=== PATIENT | female | born 1955 | race African-American/Black ===

== ENCOUNTER → 2023-12-21 11:27 | Outpatient (REF) | payer MEDICARE, BC, SELFPAY | LOC: HWRAD 11:27 | PROVIDERS: ATTENDING PHYSICIAN Physician Assistant | DX: M79.642 Pain in left hand (principal) | CPT/HCPCS: 73130; 73502 ==

== ENCOUNTER → 2023-12-22 17:10 | Day surgery (SDC) | payer MEDICARE, BC, SELFPAY ==
[2023-12-22] VITALS (10 sets, daily range): BP systolic 132–200; BP diastolic 54–166; BMI 25.0
--- NOTE | 2023-12-22 12:09 | ED.GENMED ---
History of Present Illness
<Ben Shepard PA-C - Last Filed: 12/22/23 15:27>
General
Chief Complaint: Catheter/Tube Problem
Time Seen by Provider: 12/22/23 11:08
Travel History
Have you had any contact with someone who has COVID-19?: No
Do you have any symptoms of coronavirus? Fever > 100 degrees, chills, cough, shortness of breath, sore throat, loss of taste or smell, muscle aches, or headache?: No
History of Present Illness
History of Present Illness:
68-year-old female with history of end-stage renal disease on dialysis presents due to a nonfunctioning right upper extremity dialysis fistula. Her fistula was accessed without complication on Monday. Notes after dialysis Monday her arm
became swollen and painful. There is no palpable thrill. Dialysis was unable to access her today and thus sent her to the emergency department. She denies any chest pain, fevers, or chills. Does have numbness to the right palm.
Past History
<Ben Shepard PA-C - Last Filed: 12/22/23 15:27>
Past History
ED Past Medical History: HTN, Hypercholesterolemia, Renal failure (Polycystic kidney disease) and Other
ED Past Surgical History: Cholecystectomy and Other (Renal artery stent, left arm AV fistula removed, dialysis catheter right chest wall)
Social History
Tobacco: Smoker (smokers 10 sticks per day)
Alcohol: None
Drug: None
Personal: Single
Living: with family
Employment: Retired
Family History
Family History: Other (Coronary artery disease, hypertension, brother with pacemaker, PCKD)
Review of Systems
<Ben Shepard PA-C - Last Filed: 12/22/23 15:27>
Review of Systems
Allergies reviewed?: Yes
All Other Systems: ROS reviewed and negative except as documented in HPI and ROS
Phy Exam
<Ben Shepard PA-C - Last Filed: 12/22/23 15:27>
Physical Exam
Physical Exam:
GEN: Well appearing, NAD, WDWN
HEENT: Oral mucosa moist, no scleral icterus
Cardiac: Regular rate
Lung: No respiratory distress, no tachypnea
MSK: Right upper extremity with 2 fistulas, the proximal fistula is old and there is no palpable thrill. The distal fistula appears edematous with no palpable thrill and no audible bruit. Right radial pulses 2+
Skin: Good color, no pallor or jaundice, no rashes
Neuro: AO x3, moves all extremities freely
Psych: Calm, cooperative
Course
<Ben Shepard PA-C - Last Filed: 12/22/23 15:27>
Orders/Labs/Results
Orders:
Orders
12/22/23 11:14
US Hemodialysis Graft Urgent
Comment:
Reason For Exam: possible obstructed fistula
12/22/23 13:06
Complete Blood Count/With Diff Urgent
Comprehensive Metabolic Panel Urgent
Prothrombin Time Urgent
Vital Signs
Initial and Last Documented VS:
Initial Vital Signs
Temp Pulse Resp BP Pulse Ox
98.3 F 61 16 132/57 98
12/22/23 10:00 12/22/23 10:00 12/22/23 10:00 12/22/23 10:00 12/22/23 10:00
Last Documented Vital Signs
Temp Pulse Resp BP Pulse Ox
98.3 F 61 16 161/64 100
12/22/23 10:00 12/22/23 10:00 12/22/23 10:00 12/22/23 11:02 12/22/23 11:15
<Abdirahman Dominguez DO - Last Filed: 12/22/23 15:06>
Orders/Labs/Results
Orders:
Orders
12/22/23 11:14
US Hemodialysis Graft Urgent
Comment:
Reason For Exam: possible obstructed fistula
12/22/23 13:06
Complete Blood Count/With Diff Urgent
Comprehensive Metabolic Panel Urgent
Prothrombin Time Urgent
Vital Signs
Initial and Last Documented VS:
Initial Vital Signs
Temp Pulse Resp BP Pulse Ox
98.3 F 61 16 132/57 98
12/22/23 10:00 12/22/23 10:00 12/22/23 10:00 12/22/23 10:00 12/22/23 10:00
Last Documented Vital Signs
Temp Pulse Resp BP Pulse Ox
98.3 F 61 16 161/64 100
12/22/23 10:00 12/22/23 10:00 12/22/23 10:00 12/22/23 11:02 12/22/23 11:15
Procedures
<Ben Shepard PA-C - Last Filed: 12/22/23 15:27>
Central Line
Right Femoral:
Indication for procedure:: Lack of peripheral venous access
Procedure completed by: Ben Shepard PA-C
Consent form signed: No
If no, reason: Emergency procedure (Verbal consent given)
Anesthesia: 1% Lidocaine
Central line lumen: triple
Number of attempts: 1
Central line complications: none
Sterile dressing applied?: Yes
<Ben Shepard PA-C - Last Filed: 12/22/23 15:27>
MDM/Problems Addressed
MDM/Problems Addressed:
68-year-old female presents due to a clotted dialysis AV fistula. There is a substantial delay in care as vascular surgery was not available to discuss the patient immediately, they did ask me to reach out to interventional radiology for assistance
however interventional radiology is not available to manage this patient currently. We were unable to obtain peripheral vascular access for quite some time and ultimately a right femoral line was placed by myself in order to facilitate labs and
ultimately procedure. Will be admitted to the hospitalist service post vascular procedure she will ultimately need dialysis
<Ben Shepard PA-C - Last Filed: 12/22/23 15:27>
*Critical Care Note
Total Time (30-74mins, 75-104mins- exclusive of procedures): Not Applicable
ED Attending Note
<Ben Shepard PA-C - Last Filed: 12/22/23 15:27>
-
Portions of this chart may have been created with voice recognition software.� Occasional wrong word or��sound alike� substitutions may have occurred due to the inherent limitations of voice recognition software.
<Abdirahman Dominguez DO - Last Filed: 12/22/23 15:06>
ED Attending Note
Patient seen and examined by attending physician: Yes
I performed the substantive portion of visit, reviewed & personally made and approve the management plan that is documented in note by myself or JOCELYN.: Yes
Discharge Plan
Departure
Patient Disposition: Admit
Date of Disposition: 12/22/23
Time of Disposition: 15:06
Presentation/result/management discussed w/ accepting MD/: Hospitalist
Discharge Problem:
Clotted renal dialysis AV graft
Prescriptions:
No Action
clonidine HCl 0.2 MG tablet
0.2 mg PO BID
aspirin 325 MG tablet,delayed release (DR/EC)
325 mg PO DAILY
Lokelma 10 gram Powder In Packet
10 g PO QPM
carvedilol 25 mg Tablet
25 mg PO BID
valsartan 320 mg Tablet
320 mg PO HS
sucralfate 1 gram tablet
1 g PO BID
atorvastatin 10 mg tablet
10 mg PO HS
ProRenal 8 mg iron-800 mcg-1,000 unit tablet
1 tab PO DAILY
pantoprazole [Protonix] 40 mg tablet,delayed release (DR/EC)
40 mg PO DAILY Qty: 30 0RF
hydralazine 50 mg Tablet
50 mg PO TID
Patient Comments:
08/08/23 patient was taking hydralazine 25mg but Dr. Le increased dose to 50mg on 08/02/23.
calcitriol 0.25 mcg Capsule
0.5 mcg PO MOWEFR
oxycodone 5 mg Tablet
5 mg PO Q4HPRN PRN (Reason: pain)
cinacalcet [Sensipar] 60 mg Tablet
60 mg PO MOWEFR
sevelamer carbonate [Renvela] 800 mg Tablet
1,600 mg PO AC
polyethylene glycol 3350 [Miralax] 17 gram/dose Powder
4 g PO DAILY
Referrals:
Genesis Jean Baptiste PA-C [Family Provider] -
Interventions
Interventions:
*Risk Screen - Suicide Last Done: 12/22/23 10:00
*General Assessment Last Done: 12/22/23 10:00
*Neglect/Abuse Screening Last Done: 12/22/23 10:00
ED- Fall Risk Assessment Last Done: 12/22/23 11:03
NC-[id number]-[id number] Assessment Last Done: 12/22/23 11:05
ED-Female Genitourinary Assessment Last Done: 12/22/23 11:05
--- NOTE | 2023-12-22 15:13 | CON.VAS ---
Addendum entered and electronically signed by Chris Hwang III, MD 12/22/23 16:52:
This patient was seen and examined with GAEL Oscar. I agree with the history and physical exam as well as the assessment and plan. I have the following additions:
Occluded right arm AV graft diagnosed at dialysis this morning.
Did not receive dialysis session
Duplex reviewed, graft occluded
Planning for declot today
Discussed with nephrology
Technical aspects of this procedure were discussed with the patient in detail. The benefits and rationale for this approach were discussed with her in detail. Operative risks were discussed with her in detail including but not limited to bleeding,
infection, distal embolization, arm ischemia, rethrombosis of the graft and need for additional surgery.
She expressed a clear understanding of our conversation and agrees to proceed with surgery as detailed above.
Signed:
Chris Hwang III, MD
[facility]
[phone] ([phone])
Original Note:
Consultation
Consultation Request
Date/Time Consultation Performed: 12/22/23 1530
Requesting Provider: Ben Shepard PA-C
Performing Provider: ANDRES Travis for Chris Hwang III, MD
Reason for Consultation: Suspected RUE AV clot
Medical History
-
Chief Complaint: Nonfunctioning right upper extremity AV graft
History of Present Illness:
This is a 67 yo female patient well known to our service with significant past medical history of CAD, ESRD on HD, tobacco abuse, hypertension, nausea, TIA, hyperlipidemia, AAA, and cholelithiasis who presents to the ER today for nonfunctioning AV
graft. Patient endorses that HD was unable to be initiated today due to staff suspecting clot, and was encouraged to seek urgent ED evaluation for suspected AV graft clot. Patient offers no complaints and denies right extremity pain or decreased
motor/sensation function. Denies nausea, vomiting, fever, and chills. She does report successful HD session on Monday.
Vascular surgical history below:
02/15/18- Exploration of LUE veins, LUE ulnar artery to brachial vein AV graft creation
07/16/19- LUE fistulogram, central venogram, balloon angioplasty/stenting of outflow venous anastomotic stenosis, post angioplasty of stent
06/17/21- Excision of LUE AV graft pseudoaneurysms with interposition new graft placement tunneled in a separate plane with Lincoln Acuseal early access 7mm graft
10/18/21- repair of L ulnar artery AV graft anastomotic pseudoaneurysm with bovine pericardial patch, excision of potentially infected AV graft, ligation of brachial vein, placement of R IJ tunneled dialysis catheter- infected pseudoaneurysm
12/16/21- RUE basilic vein AVF creation with single stage basilic vein transposition.
06/16/22- RUE arteriovenous graft creation with 7 mm x 4 mm tapered Lincoln Acuseal early access graft.
10/27/22- RUE fistulogram, central venogram, balloon angioplasty of venous anastomotic stenosis
05/15/23- Emergent operative exploration and evacuation of right upper extremity hematoma; Emergent primary repair of right upper extremity arterial pseudoaneurysm
08/08/23- Diagnostic right upper extremity fistulogram, drug-coated balloon angioplasty of high-grade venous anastomotic stenosis, central venogram, ultrasound-guided percutaneous access to the right upper extremity AV graft
09/21/23- Right upper extremity fistulogram and central venogram, balloon angioplasty/stent placement of venous anastomotic stenosis with Lincoln Viabahn 8 mm x 5 cm covered stent.
Past Medical History
Past Medical History: CAD, Renal Failure (MWF) and Other (Ischemic cardiomyopathy EF ~55% in 06/2022, anemia of CKD, Secondary hyperparathyroidism)
Past Surgical History: Other (AV Fistula, Renal Artery Stent, Cardiac Stent, Cholecystectomy)
Social History
Tobacco: Smoker
Alcohol: None
Drug: None
Personal: Single
Living: With Family
Allergies / Home Medications
Allergy/AdvReac Type Severity Reaction Status Date / Time
cefazolin [From [facility]] Allergy Itching Verified 12/22/23 09:59
Medication Instructions Recorded Confirmed Type
clonidine HCl 0.2 mg tablet 0.2 mg PO BID Blood Pressure 06/14/21 09/26/23 History
aspirin 325 mg tablet,delayed 325 mg PO DAILY Blood Clot 03/14/22 09/26/23 History
release Prevention/Tx
sodium zirconium cyclosilicate 10 10 g PO QPM high potassium 06/13/22 09/26/23 History
gram oral powder packet (Lokelma)
carvedilol 25 mg tablet 25 mg PO BID Heart 10/21/22 09/26/23 History
Disease/Condition
valsartan 320 mg tablet 320 mg PO HS Blood pressure 10/21/22 09/26/23 History
sucralfate 1 gram tablet 1 g PO BID Gastrointestinal Issue 01/30/23 09/26/23 History
atorvastatin 10 mg tablet 10 mg PO HS High Cholesterol 05/15/23 09/26/23 History
vit B complx, C-iron 8 mg-folic 1 tab PO DAILY Supplement 05/15/23 09/26/23 History
acid 800 mcg-D3 1,000 unit-zinc
tablet (ProRenal)
pantoprazole 40 mg tablet,delayed 40 mg PO DAILY #30 tabs 07/05/23 09/26/23 Rx
release (Protonix)
hydralazine 50 mg tablet 50 mg PO TID Blood Pressure 08/08/23 09/26/23 History
calcitriol 0.25 mcg capsule 0.5 mcg PO MOWEFR 09/18/23 09/26/23 History
cinacalcet 60 mg tablet (Sensipar) 60 mg PO MOWEFR 09/18/23 09/26/23 History
oxycodone 5 mg tablet 5 mg PO Q4HPRN PRN pain 09/18/23 09/26/23 History
sevelamer carbonate 800 mg tablet 1,600 mg PO AC 09/18/23 09/26/23 History
(Renvela)
polyethylene glycol 3350 17 4 g PO DAILY 09/21/23 09/26/23 History
gram/dose oral powder (Miralax)
Review of Systems
-
History Source: Patient
Constitutional: Reports No Symptoms
EENT: Reports No Symptoms
Respiratory: Reports No Symptoms
Cardiac: Reports No Symptoms
Abdomen/GI: Reports No Symptoms
: Reports No Symptoms
Musculoskeletal: Reports No Symptoms
Skin: Reports Other (Right upper extremity AV graft nonfunctioning)
Neurological: Reports No Symptoms
Physical Exam
Vital Signs
Temp Pulse Resp BP Pulse Ox
98.3 F 61 16 161/64 100
12/22/23 10:00 12/22/23 10:00 12/22/23 10:00 12/22/23 11:02 12/22/23 11:15
Physical Exam
HEENT: Normocephalic, Anicteric and Atraumatic
Respiratory: Non Labored Respirations
Cardiac: Negative JVD
GI: Soft, Non Tender and Non Distended
Musculoskeletal: No Edema and Other (Right upper extremity AV graft without thrill, right radial pulse palpable +1)
Skin: Dry
Neuro: AO x 3
Assessment / Plan
-
Assessment: 68-year-old female patient on dialysis for end-stage renal disease suspect clot at right extremity AV graft
Plan:
- OR today for fistulagram/declot possible AngioJet
-Hospitalist to admit
-Nephrology for HD management, will attempt use of fistula while inpt after fistulagram
I performed this shared service with the attending. I evaluated the patient [id number] and have entered clinical documentation as shown in the encounter note. I performed the following component(s): history and physical exam. Note that medical
decision making is not final until attested by vascular attending.
[2023-12-22 15:23] LABS: % Basophils 0.3 % (0-2); % Eosinophils 3.7 % (0-6); % Immature Granulocytes 0.4 % (0-0.5); % Lymphocytes 22.4 % (20.5-51.1); % Neutrophils 63.2 % (42.2-75.2); Absolute Eosinophils 0.3 10^3/uL (0-0.7); Absolute Lymphocytes 1.7 10^3/uL (1.2-3.4); Absolute Monocytes 0.8 10^3/uL (0.1-0.6); Absolute Neutrophils 4.8 10^3/uL (1.4-6.5); Hematocrit 26.8 % (37.0-47.0); Hemoglobin 8.7 g/dL (12.0-16.0); Mean Corp Hgb Conc. 32.5 g/dL (33.0-37.0); Mean Corpuscular Hgb 31.2 pg (27.0-31.0); Mean Corpuscular Volume 96.1 fL (81.0-99.0); Mean Platelet Volume 9.4 fL (7.4-10.4); Nucleated Red Blood Cells % 0 %; Platelet Count 208 10^3/uL (130-400); Red Blood Cell Count 2.79 10^6/uL (4.20-5.40); Red Cell Dist. Width 17.6 % (11.5-14.5); White Blood Cell Count 7.6 10^3/uL (4.8-10.8)
[2023-12-22 15:40] LABS: INR 1.16; PT 14.8 Sec (11.4-14.6)
[2023-12-22 15:44] LABS: ALT (SGPT) 12 U/L (0-35); AST (SGOT) 19 U/L (14-36); Albumin 2.8 g/dl (3.5-5.0); Alkaline Phosphatase 73 U/L (38-126); Blood Urea Nitrogen 70 mg/dl (7-17); Calcium 9.2 mg/dl (8.4-10.2); Carbon Dioxide 34 mmol/L (22-30); Chloride 90 mmol/L (98-107); Estimated Creatinine Clearance 6 ml/min; Glucose 83 mg/dl (70-99); Potassium 4.7 mmol/L (3.5-5.1); Sodium 135 mmol/L (135-145); Total Bilirubin 1.1 mg/dl (0.2-1.3); eGFR 4.85
--- NOTE | 2023-12-22 16:56 | W.SUR.PREOP ---
Pre-Operative Surgical Note
-
I have examined this patient prior to the performance of the scheduled procedure.
The patient's condition is unchanged from the time of the current History and
Physical and the patient is able to undergo the scheduled procedure.
--- NOTE | 2023-12-22 19:03 | W.IMMPOSTOP ---
Surgical Immed Post Op Note
-
Primary Surgeon: Chris Hwang III, MD
Assisting Surgeon: Caio Schwartz MD
Pre-op Diagnosis: RUE AV fistula dysfunction
Post-op Diagnosis: As above
Procedure Performed: RUE AV Fistula Clot Removal
Anesthesia Type: Light Sedation
Specimen / Cultures: NA
Estimated Blood Loss: 3cc
Complications: None
Operative Findings:
Access obtained through two sites via graft to access arterial and venous aspects of fistula. RUE AV fistulogram performed demonstrating focal stenosis immediately distal to prior stent. TPA was administered and mechanical thrombectomy and balloon
angioplasty performed. Postoperatively, fistula was noted to be patent, with strong appreciable thrill. Access sites were closed with 2 4-0 monocryl [id number] sutures. Right radial pulse intact postoperatively.
--- NOTE | 2023-12-22 19:28 | OR.RPT ---
Operative Report
Operative Report
Date of Operation: 12/22/2023
Pre Op Diagnosis: Thrombosed right upper extremity AV graft
Post Op Diagnosis: Thrombosed right upper extremity AV graft
Procedure:
1.) Percutaneous declot of right upper extremity AV graft
2.) Diagnostic fistulogram
3.) Central venogram
4.) Drug-coated balloon angioplasty of venous outflow stenosis (8 mm x 40 mm iNPACT DCB)
5.) Ultrasound-guided percutaneous access to the right upper extremity AV graft
Surgeon: Chris Hwang III, MD
Early Childhood Educator Aide: Caio Schwartz MD PGY-1
Anesthesia: Sedation/local
Complications: None
Fluoroscopy:
20.4 minutes
18.7 mGy
2.51 DAP
History and Indications for Procedure: 68-year-old female with thrombosed right upper extremity AV graft
Procedure in Detail: Niurka Vernon was correctly identified and placed supine on the operating table. After adequate induction of anesthesia the right arm was positioned, prepped and draped in the usual sterile fashion. Preoperative antibiotics were
administered. A timeout procedure was performed with the nursing and anesthesia staff confirming the patient�s identity as well as the nature and laterality of the procedure.
Intraoperative ultrasound was performed on the AV access. This was a right upper arm AV graft. Ultrasound demonstrated a thrombosed graft.
I identified 2 potential puncture sites along the length of the graft. Local anesthesia was infiltrated into the skin overlying the proposed puncture sites. I obtained access to the AV graft under ultrasound guidance in two separate locations with
a micropuncture needle. One access site was facing towards the arterial anastomosis. The other access site facing towards the venous outflow. I then upsized to a 6 [place] sheath at both puncture sites. 4 mg of tPA was injected into each sheath.
Systemic heparin was administered. Using a Glidewire and a KMP catheter I navigated across the proximal portion of the graft, through the arterial anastomosis and into the distal brachial artery. An arteriogram at this location confirmed no flow
into the graft. I exchanged out for a V18 wire. An [id number] Macy balloon was then passed over the V18 wire. Several sweeps of the Macy balloon were used to thrombectomize the arterial side of the graft. Subsequent arteriogram
demonstrated patent proximal portion of the graft with continued thrombus and outflow obstruction on the venous side.
Using a Glidewire and KMP catheter I then navigated through the graft across the venous outflow. The catheter was positioned in the axillary vein. A central venogram was performed demonstrating a patent axillary and subclavian vein with no
stenosis identified. There appeared to be an occlusion of the innominate vein with no clear visualization of the superior vena cava. This was also seen on the prior fistulogram from August 2023. I exchanged out for a Storq wire. Over the Storq
wire I advanced a 6 mm x 40 mm angioplasty balloon. I performed balloon angioplasty along the entire length of the AV graft and venous outflow through the existing stent. Balloon maceration of thrombus was performed along the length of the graft
and venous outflow through the stent. Subsequent fistulogram demonstrated patency of the AV graft with residual thrombus and a venous outflow stenosis identified. I then positioned an 8 mm x 40 mm iNPACT drug-coated balloon in the venous outflow
just distal to the existing stent. The balloon was inflated to nominal pressure, held in place for 3 minutes and then deflated and removed over the wire.
Completion fistulogram demonstrated a patent AV graft. Brisk flow. Minimal focal residual wall adherent thrombus identified in the venous outflow immediately distal to the stent. There was brisk flow through this area.
At the conclusion of the procedure Monocryl sutures were placed around the sheath puncture sites. The sheaths were removed and the sutures secured. Hemostasis was achieved. Sterile dressings were applied.
The patient tolerated the procedure well and was taken to the PACU in stable condition. She had a excellent thrill in the right upper extremity AV graft at the conclusion of the case. She had a palpable radial pulse at the wrist.
Attestation: I was present and responsible for the entire procedure
Signed:
Chris Hwang III, MD
[facility]
[phone] ([phone])
--- NOTE | 2023-12-22 19:46 | PTCARENOTE ---
Dr Hwang d/c'd triple lumen catheter from rt groin. pressure applied, dressing dry intact
== END | disposition home or self-care (01) ==
LOC: EMR 09:33 → PACUI 17:10
PROVIDERS: Physician Assistant; ATTENDING PHYSICIAN Surgery Vascular Surgery; EMERGENCY PHYSICIAN Emergency Medicine; FAMILY PHYSICIAN Physician Assistant Medical
DX: T82.868A Thrombosis due to vascular prosthetic devices, implants and grafts, initial encounter (principal); Y83.2 Surgical operation with anastomosis, bypass or graft as the cause of abnormal reaction of the patient, or of later complication, without mention of misadventure at the time of the procedure; N18.6 End stage renal disease; N25.81 Secondary hyperparathyroidism of renal origin; I12.0 Hypertensive chronic kidney disease with stage 5 chronic kidney disease or end stage renal disease; D63.1 Anemia in chronic kidney disease; Z99.2 Dependence on renal dialysis
CPT/HCPCS: 36905; 36556; 76937; 80053; 85025; 85610; 93990; 99285; C1725; C1769; C1894; J2997; Q9967

== ENCOUNTER 2024-01-01 07:20 | Inpatient (IN) | payer MEDICARE, BC, SELFPAY ==
[2023-12-27 11:02] VITALS: BP 100/72
--- NOTE | 2023-12-27 12:49 | ED.GENMED ---
History of Present Illness
General
Chief Complaint: Weakness
Source: patient and records
Exam Limitations: none
Time Seen by Provider: 12/27/23 12:37
Nursing documentation reviewed up to this point in time: agreed with
Travel History
Have you had any contact with someone who has COVID-19?: No
Do you have any symptoms of coronavirus? Fever > 100 degrees, chills, cough, shortness of breath, sore throat, loss of taste or smell, muscle aches, or headache?: No
History of Present Illness
History of Present Illness:
68 year old female with PMH as documented notable for ESRD on dialysis who presents to the ED for evaluation of weakness and frequent falls. Patient was notably here last week for clotted dialysis fistula that was de-clotted by Dr. Hwang on 12/22/23;
fistula has been functioning since then. Last dialysis session was reportedly yesterday--she is normally on M// schedule but has been off-schedule since recent hospitalization. She presents today with generalized weakness since staying in
hospital. She says that she has very little strength in her legs and has unfortunately suffered multiple minor falls since discharge. Normally does not require assistance to walk, recently has been using walker and even with this support she has had
multiple falls. She says falls have been down to her knees--has not had any head trauma or serious injuries recently she says. She did have a fall about a month ago prior to recent hospitalization and has had some low back pain since then. She
denies any headache, neck pain, pain in her extremities. Aside from feeling very weak she reports that she has had some nausea and vomiting over the past few days--two episodes on Monday, one more on Monday. She denies any vomiting over the past
48 hours. She has had poor appetite and some mild associated abdominal discomfort. No diarrhea or constipation. Denies fever or chills. She is anuric. Denies chest pain or shortness of breath. No cough/congestion/sore throat. Denies any other
complaints. Review of medication list shows full dose aspirin but no other blood thinners.
Past History
Past History
ED Past Medical History: HTN, Hypercholesterolemia, Renal failure (Polycystic kidney disease) and Other
ED Past Surgical History: Cholecystectomy and Other (Renal artery stent, left arm AV fistula removed, dialysis catheter right chest wall)
Social History
Tobacco: Smoker (smokers 10 sticks per day)
Alcohol: None
Drug: None
Personal: Single
Living: with family
Employment: Retired
Family History
Family History: Other (Coronary artery disease, hypertension, brother with pacemaker, PCKD)
Review of Systems
Review of Systems
All Other Systems: ROS reviewed and negative except as documented in HPI and ROS
Constitutional: Reports fatigue; Denies fever or chills
EENT: Denies sore throat or runny nose
Respiratory: Denies cough or trouble breathing
Cardiac: Denies chest pain, palpitations or syncope
ABD/GI: Reports abdominal pain, nausea and vomiting; Denies diarrhea or constipated
: Denies flank pain
Musculoskeletal: Reports back pain; Denies neck pain
Neurological: Reports weakness (generalized); Denies dizzy, headache or numbness
Phy Exam
Physical Exam
Physical Exam:
General: Awake, alert, oriented x3; no acute distress
Head: Normocephalic, atraumatic
Eyes: Conjunctiva normal, pupils equal round reactive to light bilaterally
Throat: Airway intact, handling secretions
Neck: Trachea midline, supple without meningismus; no cervical spine tenderness
Lungs: Clear to auscultation bilaterally, no wheezing, rales, rhonchi
Heart: Regular rate and rhythm, systolic murmur
Abd: Soft, non distended, mildly tender across lower abdomen
Back: No signs of trauma to the back or flank she does have some tenderness of the paraspinal muscles in the lumbar region
Neuro: Cranial nerves grossly intact, speech fluid; generally weak but no focal weakness strength is symmetric proximally and distally upper and lower extremities and no objective sensory deficit
Skin: no rash
Extremities: Patient has right upper extremity fistula with palpable thrill; no edema in her lower extremities pulses all extremities
Scores
Heart Failure Risk
Heart Failure Risk Score: Not Applicable
Heart Score for Chest Pain Patients
STEMI patient?: Not applicable
Withdrawal Assessment of Alcohol
Withdrawal Assessment Completed?: Not applicable
Course
Orders/Labs/Results
Orders:
Orders
12/27/23 12:39
Electrocardiogram (*1) Urgent
Reason for Study: Fatigue / Weakness
EKG- Treatment ONCE
12/27/23 12:48
CT Abd/pel (oral only)-DH Only Urgent
Comment:
Reason For Exam: abd pain, N/V, lower abd TTP; also LBP s/p fall
Iohexol [Omnipaque] See Protocol PO NOW STA
CR Chest - 2 Views Urgent
Comment:
Reason For Exam: weakness
12/27/23 13:33
COVID-19 Antigen Urgent
Source: Nasal Swab
Complete Blood Count/With Diff Urgent
Influenza A+B Rapid Molecular Urgent
ANUJ Source: Nasal Swab
Specimen Description:
12/27/23 15:05
Comprehensive Metabolic Panel Urgent
12/27/23 15:28
CT Head W/o Iv Contrast Urgent
Comment:
Reason For Exam: fall, N/V
Abnormal Lab Results
12/27/23 12/27/23
13:33 15:05
RBC 2.88 L 10^6/uL
(4.20-5.40)
Hgb 8.9 L g/dL
(12.0-16.0)
Hct 27.6 L %
(37.0-47.0)
MCHC 32.2 L g/dL
(33.0-37.0)
RDW 16.8 H %
(11.5-14.5)
Absolute Monos (auto) 0.9 H 10^3/uL
(0.1-0.6)
Lymphocytes % 17.1 L %
(20.5-51.1)
Monocytes % 13.0 H %
(1.7-9.3)
Sodium 132 L mmol/L
(135-145)
Chloride 93 L mmol/L
(98-107)
Carbon Dioxide 32 H mmol/L
(22-30)
BUN 36 H mg/dl
(7-17)
Creatinine 6.3 H* mg/dL
(0.6-1.0)
Glucose 68 L mg/dl
(70-99)
Total Protein 6.2 L g/dl
(6.3-8.2)
Albumin 3.1 L g/dl
(3.5-5.0)
12/27/23 13:33
12/27/23 15:05
Vital Signs
Initial and Last Documented VS:
Initial Vital Signs
Temp Pulse Resp BP Pulse Ox
37.2 C 84 16 100/72 98
12/27/23 11:02 12/27/23 11:02 12/27/23 11:02 12/27/23 11:02 12/27/23 11:02
Last Documented Vital Signs
Temp Pulse Resp BP Pulse Ox
37.2 C 84 16 100/72 96
12/27/23 11:02 12/27/23 11:02 12/27/23 11:02 12/27/23 11:02 12/27/23 15:55
Procedures
IV Access
Indication: Emergent access required, RN unable to obtain and Physician skill needed
Performed by:: Sunday Cruz MD
Site:: R
Gauge:: 18G
Ultrasound Guidance: No
MDM/Problems Addressed
Differential Diagnosis Includes:
anemia, electrolyte derangement, dehydration, viral syndrome, dysrhythmia, pneumonia, intra-abdominal infection
MDM/Problems Addressed:
68 year old female presents with increasing generalized weakness and multiple falls since recent hospitalization for clotted AV fistula. No serious injuries she says although she does have low back pain preceding these recent falls. Denies head
trauma. She has had some abdominal discomfort and nausea/vomiting recently which seems to be generally improving--no vomiting x48 hours. Vital signs are within normal range. Exam as above. Plan to place IV check labs including CBC, CMP. Will check
viral swabs, chest x-ray. Will check an EKG. Will send for CT head in an abundance of caution given multiple recent falls and nausea/vomiting. Will send for CT abdomen and pelvis for further evaluation both of abdominal discomfort and vomiting but
also low back pain. Will monitor closely, reassess after the above.
CT head negative for any acute pathology. CT of the abdomen pelvis shows compression fracture L3 which is likely new�suspect that this is likely the cause of her back pain she did have a fall about a month ago prior to onset. No other acute
pathology in the abdomen pelvis. Chest x-ray shows questionable pneumonia on the left side certainly this would account for weakness but she has no cough or shortness of breath which goes against the diagnosis of pneumonia; given her weakness will
cover for antibiotics for now. Her labs show chronic anemia and stably abnormal renal function in keeping with her ESRD. She has not hypoglycemia was able to take p.o. here. At this point no clear emergent pathology there was questionable
pneumonia which we will treat. I wonder if perhaps she may have some hypovolemia as a cause for her weakness or this could be deconditioning with her recent hospitalization. I am concerned about discharge directly home given her multiple recent
falls. Will plan to have physical therapy evaluate and case management assess for potential placement in rehab. Will admit for observation overnight and ultimately safe placement. Discussed with hospitalist for admission.
Chronic conditions affecting care:
ESRD on dialysis
*Radiology
Radiology exam reviewed: radiology read reviewed
*Pulse Oximetry
Patient hypoxic: no
*EKG
Interpreted by ED Provider?: Yes
Heart Rate: 74
Rate: normal
Rhythm: sinus
Harrold: normal axis
Interval: normal interval
QRS Pattern: low voltage
Ischemia: no ischemia
*Critical Care Note
Total Time (30-74mins, 75-104mins- exclusive of procedures): Not Applicable
Data Reviewed
Review of Other/Old Records Reveals: Labs, Operative Reports and Discharge Summary
Source: patient and records
Patient Management
Discussion with other providers: Hospitalist (Discussed with hospitalist)
Escalation/DeEscalation of care consider admission/obs:
Admission indicated
ED Attending Note
-
Portions of this chart may have been created with voice recognition software.� Occasional wrong word or��sound alike� substitutions may have occurred due to the inherent limitations of voice recognition software.
Discharge Plan
Departure
Patient Disposition: Admit
Date of Disposition: 12/27/23
Time of Disposition: 16:37
Admit to doctor: Herson
Presentation/result/management discussed w/ accepting MD/DO: Hospitalist
Discharge Problem:
Weakness, Frequent falls, Pneumonia
Prescriptions:
No Action
aspirin 325 MG tablet,delayed release (DR/EC)
325 mg PO DAILY
Lokelma 10 gram Powder In Packet
10 g PO QPM
carvedilol 25 mg Tablet
25 mg PO BID
valsartan 320 mg Tablet
320 mg PO HS
sucralfate 1 gram tablet
1 g PO BID
atorvastatin 10 mg tablet
10 mg PO HS
ProRenal 8 mg iron-800 mcg-1,000 unit tablet
1 tab PO DAILY
pantoprazole [Protonix] 40 mg tablet,delayed release (DR/EC)
40 mg PO DAILY Qty: 30 0RF
cinacalcet [Sensipar] 60 mg Tablet
60 mg PO MOWEFR@0800
sevelamer carbonate [Renvela] 800 mg Tablet
1,600 mg PO AC
polyethylene glycol 3350 [Miralax] 17 gram/dose Powder
17 g PO DAILY
lidocaine 4 % Adhesive Patch,Medicated
2 patch TOPICAL DAILY PRN (Reason: apply to left hip/thigh and left lower back)
Patient Comments:
12/22/2023, pt. currently wearing half of a patch on their left thigh and half of a patch on their left lower back; pt. also wearing a full patch on their left hip.
hydralazine 25 mg Tablet
25 mg PO BID
calcitriol 0.5 mcg Capsule
0.5 mcg PO MOWEFR@0800
oxycodone 5 mg Tablet
5 mg PO Q4HPRN PRN (Reason: severe pain)
Referrals:
Genesis Jean Baptiste PA-C [Family Provider] -
Interventions
Interventions:
*Risk Screen - Suicide Last Done: 12/27/23 13:47
*General Assessment Last Done: 12/27/23 13:45
*Neglect/Abuse Screening Last Done: 12/27/23 13:45
*ED COVID-19 Vaccine History Last Done: 12/27/23 11:02
ED- Cardiac Assessment Last Done: 12/27/23 13:53
ED- Neurological Assessment Last Done: 12/27/23 15:55
ED- Pulmonary Assessment Last Done: 12/27/23 15:55
[2023-12-27 13:14] VITALS: BMI 24.6
[2023-12-27] MEDS: OMNIPAQUE 50 ML PO (13:42)
[2023-12-27 13:54] LABS: % Basophils 0.4 % (0-2); % Immature Granulocytes 0.3 % (0-0.5); % Lymphocytes 17.1 % (20.5-51.1); % Neutrophils 67.2 % (42.2-75.2); Absolute Eosinophils 0.1 10^3/uL (0-0.7); Absolute Lymphocytes 1.2 10^3/uL (1.2-3.4); Absolute Monocytes 0.9 10^3/uL (0.1-0.6); Absolute Neutrophils 4.6 10^3/uL (1.4-6.5); Hematocrit 27.6 % (37.0-47.0); Hemoglobin 8.9 g/dL (12.0-16.0); Mean Corp Hgb Conc. 32.2 g/dL (33.0-37.0); Mean Corpuscular Hgb 30.9 pg (27.0-31.0); Mean Corpuscular Volume 95.8 fL (81.0-99.0); Mean Platelet Volume 9.9 fL (7.4-10.4); Nucleated Red Blood Cells % 0 %; Platelet Count 176 10^3/uL (130-400); Red Blood Cell Count 2.88 10^6/uL (4.20-5.40); Red Cell Dist. Width 16.8 % (11.5-14.5); White Blood Cell Count 6.9 10^3/uL (4.8-10.8)
[2023-12-27 14:13] LABS: COVID-19 Antigen Negative (Negative)
[2023-12-27 15:31] LABS: ALT (SGPT) 17 U/L (0-35); AST (SGOT) 30 U/L (14-36); Albumin 3.1 g/dl (3.5-5.0); Alkaline Phosphatase 86 U/L (38-126); Blood Urea Nitrogen 36 mg/dl (7-17); Calcium 8.9 mg/dl (8.4-10.2); Carbon Dioxide 32 mmol/L (22-30); Chloride 93 mmol/L (98-107); Estimated Creatinine Clearance 7 ml/min; Glucose 68 mg/dl (70-99); Potassium 4.3 mmol/L (3.5-5.1); Sodium 132 mmol/L (135-145); Total Bilirubin 1.1 mg/dl (0.2-1.3); Total Protein 6.2 g/dl (6.3-8.2); eGFR 6.66
[2023-12-27 16:28] VITALS: BP 148/63
[2023-12-27 17:00] VITALS: BP 154/59
--- NOTE | 2023-12-27 17:16 | HPS.HSE ---
Family Physician
-
Family Physician: Genesis Jean Baptiste
Chief Complaint
-
weakness
History of Present Illness
68-year-old female past medical history of ESRD on hemodialysis Monday, Monday, Monday, polycystic kidney disease, coronary artery disease, hypertension, hypercholesteremia, GERD, presenting for weakness and frequent falls.
Patient came to the hospital last week for clotted dialysis fistula that was declotted by Dr. Hwang on 12/22/2023. Last dialysis session was yesterday since patient has been off of her usual schedule since fistula was declotted. Patient had
generalized weakness since being in the hospital. She has very little strength in her legs and has suffered multiple minor falls since discharge. She feels that her legs give out. Normally patient does not require assistance to walk and recently
required use of walker. She has recently fallen to her knees but denies any head injury or serious injury. Denies any headache, neck pain, pain in extremities. Denies any dizziness or syncope.
She complains of pain in her lower back which radiates down her left butt down the side of her leg. She also had pain of her right ankle and right knee. She had x-rays of her hip prior to coming into the hospital for fistula declotting. Patient
has been taking Tylenol and lidocaine patch for pain.
Patient has had some nausea vomiting over the past few days, specifically 2 episodes over the weekend. Denies any vomiting over the past 2 days. She has had poor appetite and some mild associated abdominal discomfort. No diarrhea or constipation.
No fevers or chills. She does not make urine at baseline. Denies any chest pain or shortness of breath. Denies any cough or congestion or sore throat.
Medical History
Past Medical History
Past Medical History: Reports Other (ESRD on hemodialysis Monday, Monday, Monday, polycystic kidney disease, coronary artery disease, hypertension, hypercholesteremia, GERD)
Past Surgical History: Reports Other (Cholecystectomy and Other (Renal artery stent, left arm AV fistula removed, dialysis catheter right chest wall))
Social History
Tobacco: Smoker
Alcohol: None
Drug: None
Family History
Family History: Not pertinent
Allergies / Home Medications
Allergies reflects when Allergies were last updated in [facility].
Home Medications with original date entered in [facility]
Allergy/Medication List:
Allergies
Allergy/AdvReac Type Severity Reaction Status Date / Time
cefazolin [From [facility]] Allergy Itching Verified 12/27/23 11:04
Home Medications
aspirin 325 mg tablet,delayed release 325 mg PO DAILY Blood Clot Prevention/Tx 03/14/22
sodium zirconium cyclosilicate 10 gram oral powder packet (Lokelma) 10 g PO QPM high potassium 06/13/22
carvedilol 25 mg tablet 25 mg PO BID Heart Disease/Condition 10/21/22
valsartan 320 mg tablet 320 mg PO HS Blood pressure 10/21/22
sucralfate 1 gram tablet 1 g PO BID Gastrointestinal Issue 01/30/23
atorvastatin 10 mg tablet 10 mg PO HS High Cholesterol 05/15/23
vit B complx, C-iron 8 mg-folic acid 800 mcg-D3 1,000 unit-zinc tablet (ProRenal) 1 tab PO DAILY Supplement 05/15/23
pantoprazole 40 mg tablet,delayed release (Protonix) 40 mg PO DAILY #30 tabs 07/05/23
cinacalcet 60 mg tablet (Sensipar) 60 mg PO MOWEFR@0800 09/18/23
sevelamer carbonate 800 mg tablet (Renvela) 1,600 mg PO AC 09/18/23
polyethylene glycol 3350 17 gram/dose oral powder (Miralax) 17 g PO DAILY 09/21/23
calcitriol 0.5 mcg capsule 0.5 mcg PO MOWEFR@0800 12/22/23
hydralazine 25 mg tablet 25 mg PO BID 12/22/23
lidocaine 4 % topical patch 2 patch topical DAILY PRN apply to left hip/thigh and left lower back 12/22/23
oxycodone 5 mg tablet 5 mg PO Q4HPRN PRN severe pain 12/27/23
Review of Systems
-
History Source: Patient
A 12 point ROS was completed and negative except as noted: Yes
Constitutional: Reports No Symptoms
EENT: Reports No Symptoms
Respiratory: Reports No Symptoms
Cardiac: Reports No Symptoms
Abdomen/GI: Reports No Symptoms
: Reports No Symptoms
Musculoskeletal: Reports No Symptoms
Skin: Reports No Symptoms
Neurological: Reports No Symptoms
Endocrine: Reports No Symptoms
Hematologic/Lymphatic: Reports No Symptoms
Psych: Reports No Symptoms
Physical Exam
Vital Signs
Vital Signs
Temp Pulse Resp BP Pulse Ox
99.0 F 84 16 148/63 100
12/27/23 11:02 12/27/23 11:02 12/27/23 11:02 12/27/23 16:28 12/27/23 16:28
Physical Exam
General: Well Developed, Well Nourished and No Apparent Distress
HEENT: NormoCephalic, Moist mucous membranes and Atraumatic
Respiratory: Clear
Cardiac: S1/S2 and Regular Rhythm; No Murmur or Rub
GI: Soft, Non Tender, Non Distended and Normal Bowel Sounds; No Organomegaly
Rectal: Deferred by Provider
Musculoskeletal: No Clubbing, No Cyanosis and No Edema
Skin: No Rash
Neuro: Nonfocal/grossly intact
Laboratory Results
-
12/27/23 13:33
12/27/23 15:05
Laboratory Results
Total Bilirubin 1.1 mg/dl (0.2-1.3) 12/27/23 15:05
AST 30 U/L (14-36) 12/27/23 15:05
ALT 17 U/L (0-35) 12/27/23 15:05
Alkaline Phosphatase 86 U/L (38-126) 12/27/23 15:05
Data Reviewed
-
Lab Data: Labs Reviewed by me
Old Records: Reviewed
Impression/Plan
-
IMPRESSION:
PLAN:
# Acute lower back pain/bilateral lower extremity weakness secondary to arthritis
-Hip x-ray from of left shows no abnormality
-Check lumbar x-ray
-Chest x-ray shows minimal patchy opacity in the left midlung which could represent subsegmental atelectasis/pneumonia
-CT head shows no acute abnormality
-Levaquin given in ER for pneumonia but doubt infection
-Procalcitonin pending
-PT/OT
-Tylenol and lidocaine patch for lower back pain,
# Hypolycemia secondary to decreased oral intake today
-Blood sugar today of 68
-Not diabetic
ESRD on hemodialysis
History of polycystic kidney disease
-Last received dialysis yesterday
-Continue calcitriol
-Continue Lokelma for high potassium
-Continue sevelamer
-Nephrology consulted for dialysis tomorrow
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
-Continue Cinacalcet
Chronic anemia of renal disease
-Hemoglobin relatively stable at 8.9
Coronary artery disease
-Continue aspirin
Essential hypertension
-Continue Coreg, hydralazine, valsartan
Hypercholesterolemia
-Continue statin
GERD
-Continue Protonix, sucralfate
Smoker
-Smokes 2 cigarettes a day
Full code
DVT prophylaxis heparin
Renal diet
[2023-12-27 18:00] VITALS: BP 155/67
[2023-12-27] MEDS: LEVAQUIN 150 IV (18:27)
[2023-12-27 19:09] LABS: Procalcitonin 2.79 ng/ml (0.0-0.25)
[2023-12-27 19:33] VITALS: BMI 23.9
[2023-12-27 19:40] VITALS: BP 143/72
[2023-12-27] MEDS: LOKELMA 10 GRAM PO (20:59)
[2023-12-27] MEDS: HEPARIN 5000 UNITS SC (21:03)
[2023-12-27] MEDS: LIDOCAINE 4% PATCH 2 PATCH TOPICAL (21:05)
[2023-12-27] MEDS: APRESOLINE 25 MG PO (22:59)
[2023-12-27] MEDS: COREG 25 MG PO (23:01)
[2023-12-27] MEDS: CARAFATE 1 GRAM PO (23:01)
[2023-12-27] MEDS: DIOVAN 320 MG PO (23:02)
[2023-12-27] MEDS: LIPITOR 10 MG PO (23:02)
[2023-12-27 23:17] VITALS: BP 133/57
--- NOTE | 2023-12-28 04:00 | PTCARENOTE ---
/- Patient transferred and oriented to unit without issue. Patient walked form Stretcher to bed with standby assist. Patient reports pain to left middle back. Patient reports pain when she takes in a breath. Patient is AAOX3. Vital signs taken.
Patient requesting crackers and a drink as she didn't eat today. Patient oriented to room.
[2023-12-28] MEDS: RENVELA 1600 MG PO ×3 (06:33→17:39)
[2023-12-28] MEDS: CARAFATE 1 GRAM PO ×2 (06:33→17:39)
[2023-12-28 07:30] VITALS: BP 136/66
[2023-12-28] MEDS: HEPARIN 5000 UNITS SC ×2 (08:14→21:17)
[2023-12-28] MEDS: PROTONIX 40 MG PO (08:14)
[2023-12-28] MEDS: NEPHROCAP 1 CAPSULE PO (08:14)
[2023-12-28] MEDS: APRESOLINE 25 MG PO ×2 (08:14→21:30)
[2023-12-28] MEDS: ASPIRIN ENTERIC COATED 325 MG PO (08:19)
[2023-12-28 10:44] LABS: % Basophils 0.2 % (0-2); % Immature Granulocytes 0.2 % (0-0.5); % Lymphocytes 13.1 % (20.5-51.1); % Monocytes 12.8 % (1.7-9.3); % Neutrophils 71.7 % (42.2-75.2); Absolute Eosinophils 0.1 10^3/uL (0-0.7); Absolute Lymphocytes 0.8 10^3/uL (1.2-3.4); Absolute Monocytes 0.8 10^3/uL (0.1-0.6); Absolute Neutrophils 4.3 10^3/uL (1.4-6.5); Hematocrit 26.7 % (37.0-47.0); Hemoglobin 8.7 g/dL (12.0-16.0); Mean Corp Hgb Conc. 32.6 g/dL (33.0-37.0); Mean Corpuscular Hgb 30.7 pg (27.0-31.0); Mean Corpuscular Volume 94.3 fL (81.0-99.0); Mean Platelet Volume 10.4 fL (7.4-10.4); Nucleated Red Blood Cells % 0 %; Platelet Count 179 10^3/uL (130-400); Red Blood Cell Count 2.83 10^6/uL (4.20-5.40); Red Cell Dist. Width 16.3 % (11.5-14.5); White Blood Cell Count 5.9 10^3/uL (4.8-10.8)
[2023-12-28] MEDS: MIRALAX PO (10:53)
--- NOTE | 2023-12-28 10:56 | W.CON.NEPH ---
Consultation
-
Date/Time Consultation Requested: 12/28/2023 7 AM
Date/Time Consultation Performed: 12/28/2023 11:00 am
Requesting Provider: aneta Hernandez
Performing Provider: Yohan
Reason for Consultation: End-stage renal disease
Medical History
-
Chief Complaint: End-stage renal disease
History of Present Illness:
The patient is a 68-year-old female with a past medical history of end-stage renal disease chronically maintained on dialysis Monday [facility] dialysis unit. This week due to ambulatory dysfunction she was actually just
dialyzed this past Monday and was to undergo dialysis again yesterday but instead reported to the emergency room with increasing back pain and falls. She had presented to the emergency room last week for clotted dialysis fistula and underwent
declot on 12/22/2023. On presentation last evening she complained of lower back pain which radiates down the left leg but also noted associated pain of her right ankle and right knee. The patient also noted some associated nausea and vomiting over
the past few days. She has had profound decrease in her appetite and oral intake. The patient has a history of notoriously difficult to control hypertension but is currently maintained on carvedilol losartan hydralazine. She is maintained on
calcitriol and Cinacalcet in the setting of her secondary hyperparathyroid.
Past Medical History
ESRD on dialysis Monday, Monday, Monday.
Right upper extremity AV graft, previous history of
�� interventions.
Angioplasty in October 2022.
Polycystic kidney disease.
Ischemic cardiomyopathy since EF improved.
Multidrug-resistant hypertension.
Coronary artery disease, failed RCA stent in January 2022.
Anemia of CKD.
GERD.
Secondary hyperparathyroidism.
Chronic hyperkalemia on Lokelma.
Active smoking.
History of PAD.
Hyperphosphatemia.
History of renal artery stenosis with stenting.
Gout.
�
Social History
Tobacco: Smoker
Alcohol: None
Drug: None
Family History
Polycystic kidney disease
Allergies / Home Medications
Allergy/AdvReac Type Severity Reaction Status Date / Time
cefazolin [From [facility]] Allergy Itching Verified 12/27/23 11:04
Medication Instructions Recorded Confirmed Type
aspirin 325 mg tablet,delayed 325 mg PO DAILY Blood Clot 03/14/22 12/27/23 History
release Prevention/Tx
sodium zirconium cyclosilicate 10 10 g PO QPM high potassium 06/13/22 12/27/23 History
gram oral powder packet (Lokelma)
carvedilol 25 mg tablet 25 mg PO BID Heart 10/21/22 12/27/23 History
Disease/Condition
valsartan 320 mg tablet 320 mg PO HS Blood pressure 10/21/22 12/27/23 History
sucralfate 1 gram tablet 1 g PO BID Gastrointestinal Issue 01/30/23 12/27/23 History
atorvastatin 10 mg tablet 10 mg PO HS High Cholesterol 05/15/23 12/27/23 History
vit B complx, C-iron 8 mg-folic 1 tab PO DAILY Supplement 05/15/23 12/27/23 History
acid 800 mcg-D3 1,000 unit-zinc
tablet (ProRenal)
pantoprazole 40 mg tablet,delayed 40 mg PO DAILY #30 tabs 07/05/23 12/27/23 Rx
release (Protonix)
cinacalcet 60 mg tablet (Sensipar) 60 mg PO MOWEFR@0800 09/18/23 12/27/23 History
sevelamer carbonate 800 mg tablet 1,600 mg PO AC 09/18/23 12/27/23 History
(Renvela)
polyethylene glycol 3350 17 17 g PO DAILY 09/21/23 12/27/23 History
gram/dose oral powder (Miralax)
calcitriol 0.5 mcg capsule 0.5 mcg PO MOWEFR@0800 12/22/23 12/27/23 History
hydralazine 25 mg tablet 25 mg PO BID 12/22/23 12/27/23 History
lidocaine 4 % topical patch 2 patch topical DAILY PRN apply to 12/22/23 12/27/23 History
left hip/thigh and left lower back
oxycodone 5 mg tablet 5 mg PO Q4HPRN PRN severe pain 12/27/23 12/27/23 History
Review of Systems
-
History Source: Patient
All other systems: Negative unless noted
Constitutional: Weight Loss, Fatigue and Other (Decreased appetite poor p.o. intake)
EENT: No Symptoms
Respiratory: No Symptoms
Cardiac: No Symptoms
Abdomen/GI: Nausea, Vomiting and Anorexia
: No Symptoms
Musculoskeletal: Muscle Pain and Other (Back and ankle pain)
Skin: No Symptoms
Neurological: No Symptoms
Endocrine: No Symptoms
Hematologic/Lymphatic: No Symptoms
Physical Exam
Vital Signs
Vital Signs
Temp Pulse Resp BP Pulse Ox
98.1 F 75 18 136/66 99
12/28/23 07:30 12/28/23 07:30 12/28/23 07:30 12/28/23 07:30 12/28/23 07:30
Lab Results
12/28/23 10:09
12/28/23 10:09
WBC 5.9 10^3/uL (4.8-10.8) 12/28/23 10:09
RBC 2.83 10^6/uL (4.20-5.40) L 12/28/23 10:09
Hgb 8.7 g/dL (12.0-16.0) L 12/28/23 10:09
Hct 26.7 % (37.0-47.0) L 12/28/23 10:09
Plt Count 179 10^3/uL (130-400) 12/28/23 10:09
eGFR 6.66 12/27/23 15:05
Physical Exam
General: AOx3, No Distress and Nontoxic
HEENT: PERRL, EOMI, Anicteric, Conjunctivae Clear, Ear/Nose Intact, Hearing Normal, Neck Supple, Trachea Midline, No JVD and No Thyromegaly
Respiratory: Clear
Cardiac: S1/S2
Breast: Deferred by me
Abdomen: Soft, Nontender, Nondistended, Normal Bowel Sounds and No Hepatosplenomegaly
Rectal: Deferred by Provider
Musculoskeletal: No Clubbing, No Cyanosis and Edema (Trace pitting, right upper extremity AV access with good thrill and bruit)
Skin: No Rash
Neuro: Nonfocal/Grossly Intact and Strength (5 out of 5 in all 4 extremities)
Hematologic/Lymphatic: No Cervical Lymphadenopathy
Psych: Mood/afflect pleasant
Assessment/Plan
-
Impression:
Falls back pain multiple joint arthralgias, weakness failure to thrive
End-stage renal disease Monday schedule
Multidrug-resistant hypertension
Hypoglycemia
Secondary hyperparathyroid
Hyperphosphatemia
Coronary artery disease
History of polycystic kidney disease
Right upper extremity AV graft, previous history of
�� interventions.
Angioplasty in October 2022
Peripheral arterial disease
Plan:
HD today
orders provided
NILTON for anemia
fluid and dietary restrictions
Data Reviewed
-
Radiology: Image Personally Visualized and interpreted (Chest x-ray personally reviewed no evidence of gross congestive heart failure or pneumonic process) and Report Reviewed by me
CT Scan: Report Reviewed by me
Labs: Labs Reviewed by me
Old Records: Reviewed (Reviewed last hospitalization for end-stage renal disease in July 2023)
[2023-12-28 11:00] LABS: ALT (SGPT) 16 U/L (0-35); AST (SGOT) 31 U/L (14-36); Albumin 3.2 g/dl (3.5-5.0); Alkaline Phosphatase 70 U/L (38-126); Blood Urea Nitrogen 48 mg/dl (7-17); Calcium 9.1 mg/dl (8.4-10.2); Carbon Dioxide 29 mmol/L (22-30); Chloride 88 mmol/L (98-107); Estimated Creatinine Clearance 6 ml/min; Glucose 144 mg/dl (70-99); Potassium 4.3 mmol/L (3.5-5.1); Sodium 132 mmol/L (135-145); Total Protein 6.4 g/dl (6.3-8.2); eGFR 5.67
[2023-12-28] MEDS: COREG PO (12:05)
--- NOTE | 2023-12-28 14:32 | W.PN.HOSP.TC ---
Today's Communication/Plan
-
will order blood cx
request ID opinion of possibility of infection
consult IRAD
Assessment / Plan
Assessment / Plan
# Acute lower back pain/bilateral lower extremity weakness secondary to arthritis
diffuse weakness of unclear etiology, though component of ESRD
-Hip x-ray from of left shows no abnormality
- lumbar x-ray: Markedly limited evaluation as a result of overlying intestinal contrast.
No gross findings to suggest lumbar vertebral compression fracture.
-Chest x-ray shows minimal patchy opacity in the left midlung which could represent subsegmental atelectasis/pneumonia
-CT head shows no acute abnormality
-Levaquin given in ER for pneumonia but doubt infection
ER did not obtain blood cx prior to giving Levaquin
-Procalcitonin 2.79 (but pt with ESRD)
-PT/OT
-Tylenol and lidocaine patch for lower back pain,
# Hypoglycemia secondary to decreased oral intake today
-Blood sugar today of 68
-Not diabetic
ESRD on hemodialysis
History of polycystic kidney disease
-Last received dialysis 1 day [employer]
-Continue calcitriol
-Continue Lokelma for high potassium
-Continue sevelamer
-Nephrology consulted for dialysis contacted by nursing that fistula site is clotted, dialysis will be postponed until tomorrow, IRAD consulted
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
-Continue Cinacalcet
Chronic anemia of renal disease
-Hemoglobin relatively stable at 8.9
Coronary artery disease
-Continue aspirin
Essential hypertension
-Continue Coreg, hydralazine, valsartan
Hypercholesterolemia
-Continue statin
GERD
-Continue Protonix, sucralfate
Smoker
-Smokes 2 cigarettes a day
Full code
DVT prophylaxis heparin
Renal diet
Anticipated Discharge: > 48 hours
Subjective/Interval History
-
Date of Service: December 28, 2023
Pt remains weak
Objective Data
-
Labs:
Laboratory Results
12/28/23
10:09
WBC 5.9
Hgb 8.7 L
Hct 26.7 L
Plt Count 179
Sodium 132 L
Potassium 4.3
Chloride 88 L
Carbon Dioxide 29
BUN 48 H
Creatinine 7.2 H*
Glucose 144 H
Calcium 9.1
Total Bilirubin 1.0
AST 31
ALT 16
Alkaline Phosphatase 70
Vital Signs:
Vital Signs
Temp Pulse Resp BP Pulse Ox
98.1 F 75 18 136/66 99
12/28/23 07:30 12/28/23 07:30 12/28/23 07:30 12/28/23 07:30 12/28/23 07:30
Review of Systems
-
History Source: Patient and Coordinated Provider
Constitutional: Denies Fever
EENT: Reports No Symptoms Reported
Respiratory: Reports No Symptoms; Denies Cough or Trouble Breathing
Cardiac: Reports No Symptoms; Denies Chest Pain or Palpitations
Abdomen/GI: Reports No Symptoms
Genitourinary: Reports No Symptoms
Neuro: Reports No Symptoms
Physical Exam
-
General: Well Developed, Well Nourished and No Apparent Distress
HEENT: Normocephalic, Atraumatic and Moist Mucous Membranes
Respiratory: Clear to Auscultation; Negative Wheezes, Rales or Rhonchi
Cardiac: Regular Rhythm and S1/S2
GI: Soft, Nontender and Nondistended
Musculoskeletal: No Clubbing, No Cyanosis and No Edema
Neuro: Awake, Alert and Oriented
[2023-12-28 15:30] VITALS: BP 156/68
--- NOTE | 2023-12-28 17:34 | CM ---
mpatient at [facility].patient lives with her sister and brother in house with no sylvia,[facility] rehab in past.her bed and bath is on the frst level.she has a tub shower with a shower and is I in bathing and grooming.patient is adm with weakness.she is on hd
mwf at [facility] on [address].patient drives herself to dialysis.she has had vn in past through [facility] but has not been to ip rehab in past.patient wants to discharge home when stable.cm to follow patient's progress.
plan dc home with no needs vs [facility].
[2023-12-28] MEDS: LOKELMA 10 GRAM PO (17:39)
[2023-12-28] MEDS: LIDOCAINE 4% PATCH 2 PATCH TOPICAL (21:00)
[2023-12-28] MEDS: DIOVAN 320 MG PO (21:16)
[2023-12-28] MEDS: LIPITOR 10 MG PO (21:17)
[2023-12-28] MEDS: COREG 25 MG PO (21:18)
[2023-12-28 23:47] VITALS: BP 159/67
[2023-12-29 06:07] VITALS: BMI 24.3
[2023-12-29] MEDS: CARAFATE PO ×2 (06:09→18:05)
[2023-12-29 07:42] VITALS: BP 169/68
[2023-12-29] MEDS: RENVELA 1600 MG PO ×2 (07:43→11:37)
[2023-12-29] MEDS: SENSIPAR 60 MG PO (07:43)
[2023-12-29] MEDS: NEPHROCAP 1 CAPSULE PO (07:44)
[2023-12-29] MEDS: PROTONIX 40 MG PO (07:44)
[2023-12-29] MEDS: APRESOLINE 25 MG PO ×2 (07:44→21:49)
[2023-12-29] MEDS: COREG 25 MG PO ×2 (07:45→21:45)
[2023-12-29] MEDS: ROCALTROL 0.5 MCG PO (07:46)
[2023-12-29] MEDS: MIRALAX PO (07:48)
[2023-12-29] MEDS: ASPIRIN ENTERIC COATED PO (09:46)
[2023-12-29] MEDS: HEPARIN SC (09:46)
--- NOTE | 2023-12-29 09:52 | CON.ID ---
Addendum entered and electronically signed by Shante Klein MD 12/29/23 13:20:
the single set of blood cultures done last night now with GPCs in clusters.
Repeat blood cultures x2 now
then start vancomycin
Original Note:
Consultation
-
Date/Time Consultation Requested: 12/28/23 14:46
Date/Time Consultation Performed: 12/29/23 9:53
Requesting Provider: Dr Crowe
Performing Provider: Dr Klein
Reason for Consultation: opinion of possibility of infection
Chief Complaint / Past History
Chief Complaint
weakness
History of Present Illness
Ms Vernon is a 68 year old female with ESRD due to PCKD who presented here 12/26 for weakness, falls. Of note with clotted dialysis fistula -declotted 12/21. Last HD was day before arrival. Patient reports minimal strength in the legs, multiple
falls. Baseline was walking independently now requiring walker. No fevers, chills, headache, neck pain or pain in the extremities. Doesnt make urine. No chest pain, cough, shortness of breath or sore throat. C/o pain the lower back radiating
down the side of her leg. Reports nausea and vomiting x2 over the weekend - resolved x48 hours. Mild abdominal pain, no diarrhea or constipation.
Since arrival here she has been afebrile, bp stable, wbc 6.9 now 5.9, hgb 8.7, plt 179, no left shift x2, eos present in normal amounts, Na 132, K 4.3, Cr 7.2, t bili 1.0, ast 31, alt 16, alk pohs 70, procal 2.8, covid ag neg, flu swab negative,
blood culture x1 in progress, patient colonized with MRSA. There are no blood cultures from last admission. 12/26 CT a/p with abd contrast: mild L3 compression fx. CXR: clear lung david.
Past History
Additional Past Medical History:
ESRD on dialysis Monday, Monday, Monday.
Right upper extremity AV graft, previous history of
�� interventions.
�Angioplasty in October 2022.
Polycystic kidney disease.
Ischemic cardiomyopathy since EF improved.
Multidrug-resistant hypertension.
Coronary artery disease, failed RCA stent in January 2022.
Anemia of CKD.
GERD.
Secondary hyperparathyroidism.
Chronic hyperkalemia on Lokelma.
Active smoking.
History of PAD.
Hyperphosphatemia.
History of renal artery stenosis with stenting.
Gout.
Additional Past Surgical History:
(Cholecystectomy and Other (Renal artery stent, left arm AV fistula removed, dialysis catheter right chest wall))
Allergy History:
cefazolin [From Anc] Allergy (Verified 12/27/23 11:04)
Itching
Medications Reviewed: Yes
Social History
Tobacco: Smoker
Alcohol: None
Drug: None
Family History
Family History: Not Pertinent
Review of Systems
Review of Systems
General: Negative Fever or Chills
All systems: All other systems were reviewed and were negative
Vital Signs
Temp Pulse Resp BP Pulse Ox
98.8 F 76 18 169/68 98
12/29/23 07:42 12/29/23 07:45 12/29/23 07:42 12/29/23 07:45 12/29/23 07:42
Physical Exam
Physical Exam
Constitutional: No Acute Distress
Cardiovascular: Regular Rate and S1/S2; Negative Murmur or Rub
Pulmonary: Clear and Symmetric; Negative Wheezes, Rales or Rhonchi
Gastrointestinal: Soft, Non Tender, Non Distended and Normal Bowel Sounds
Extremities: Other (RUE fistula with thrill)
Skin: Warm and Dry; Negative Rash or Jaundice
Lab / Diagnostic Study Results
12/28/23 10:09
12/28/23 10:09
Abs Immat Gran (auto) 0.0 10^3/uL (0-0.05) 12/28/23 10:09
Absolute Neuts (auto) 4.3 10^3/uL (1.4-6.5) 12/28/23 10:09
Absolute Lymphs (auto) 0.8 10^3/uL (1.2-3.4) L 12/28/23 10:09
Absolute Monos (auto) 0.8 10^3/uL (0.1-0.6) H 12/28/23 10:09
Absolute Basos (auto) 0.0 10^3/uL (0-0.2) 12/28/23 10:09
Immature Gran % 0.2 % (0-0.5) 12/28/23 10:09
Neutrophils % 71.7 % (42.2-75.2) 12/28/23 10:09
Lymphocytes % 13.1 % (20.5-51.1) L 12/28/23 10:09
Monocytes % 12.8 % (1.7-9.3) H 12/28/23 10:09
Eosinophils % 2.0 % (0-6) 12/28/23 10:09
Basophils % 0.2 % (0-2) 12/28/23 10:09
Procalcitonin 2.79 ng/ml (0.0-0.25) H* 12/27/23 18:25
Microbiology Results
Micro:
12/27/23 21:15 MRSA Screen - Final
Nose Staph aureus MRSA
12/28/23 15:07 Blood Culture - Pending
Blood/Venous
12/27/23 13:33 Influenza Types A & B (SRINIVAS) - Final
Nasal Swab Negative for Influenza A & B, NAAT
Negative results must be combined with clinical observations
and patient history.
Nucleic Acid Amplification test (NAAT)performed on the
[employer] platform.
Assessment / Plan
Elevated Procalcitonin (R79.89) in the setting of ESRD
Will rule out bacteremia
- procalcitonin will always be elevated in ESRD - it is not a meaningful test in this setting.
- blood cultures need to be two sets to be sufficiently sensitive - send second set now
- colonized with MRSA - contact precautions
- do not recommend antibiotics at this time
Follow clinically
--- NOTE | 2023-12-29 10:14 | W.PN.HOSP.TC ---
Today's Communication/Plan
-
no abx
tunneled dialysis catheter to be placed early afternoon
Assuming she is doing better post dialysis, will plan on dc
Assessment / Plan
Assessment / Plan
# Acute lower back pain/bilateral lower extremity weakness secondary to arthritis
diffuse weakness of unclear etiology, though component of ESRD/ poorly functioning dialysis site
IRAD to place tunneled catheter later today
-Hip x-ray from of left shows no abnormality
- lumbar x-ray: Markedly limited evaluation as a result of overlying intestinal contrast.
No gross findings to suggest lumbar vertebral compression fracture.
-Chest x-ray shows minimal patchy opacity in the left midlung which could represent subsegmental atelectasis/pneumonia
-CT head shows no acute abnormality
-Levaquin given in ER for pneumonia but doubt infection
ER did not obtain blood cx prior to giving Levaquin
ordered Blood Cx yesterday, input of Dr. Klein appreciated, agrees that no evidence of need of abx
-Procalcitonin 2.79 (but pt with ESRD)
-PT/OT
-Tylenol and lidocaine patch for lower back pain,
# Hypoglycemia secondary to decreased oral intake today
-Blood sugar today of 68
-Not diabetic
ESRD on hemodialysis
History of polycystic kidney disease
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
-Continue calcitriol
-Continue Lokelma for high potassium
K today 4.3
-Continue sevelamer
-Nephrology consulted for dialysis contacted by nursing that fistula site is clotted, dialysis will be postponed until tomorrow, IRAD consulted
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
-Continue Cinacalcet
Chronic anemia of renal disease
-Hemoglobin relatively stable at 8.9
Coronary artery disease
-Continue aspirin
Essential hypertension
-Continue Coreg, hydralazine, valsartan
Hypercholesterolemia
-Continue statin
GERD
-Continue Protonix, sucralfate
Smoker
-Smokes 2 cigarettes a day
Full code
DVT prophylaxis heparin
Renal diet
Anticipated Discharge: > 48 hours
Subjective/Interval History
-
Date of Service: December 29, 2023
appears comfortable
Objective Data
-
Vital Signs:
Vital Signs
Temp Pulse Resp BP Pulse Ox
98.8 F 76 18 169/68 98
12/29/23 07:42 12/29/23 07:45 12/29/23 07:42 12/29/23 07:45 12/29/23 07:42
I&O
12/28/23 12/29/23 12/30/23
06:59 06:59 06:59
Intake Total 600 / 600
Balance 600 / 600
Review of Systems
-
History Source: Patient and Coordinated Provider
Constitutional: Denies Fever
EENT: Reports No Symptoms Reported
Respiratory: Reports No Symptoms; Denies Cough or Trouble Breathing
Cardiac: Reports No Symptoms; Denies Chest Pain or Palpitations
Abdomen/GI: Reports No Symptoms
Genitourinary: Reports No Symptoms
Neuro: Reports No Symptoms
Physical Exam
-
General: Well Developed, Well Nourished and No Apparent Distress
HEENT: Normocephalic, Atraumatic and Moist Mucous Membranes
Respiratory: Clear to Auscultation; Negative Wheezes, Rales or Rhonchi
Cardiac: Regular Rhythm and S1/S2
GI: Soft, Nontender and Nondistended
Musculoskeletal: No Clubbing, No Cyanosis and No Edema
Neuro: Awake, Alert and Oriented
[2023-12-29 13:31] VITALS: BP 185/67; BP_SYST 77
--- NOTE | 2023-12-29 14:11 | PHA.VAN.IN ---
Assessment
- Assessment
Renal Function: Patient has ESRD, on chronic Hemodialysis
Hemodialysis Schedule: MWF
[facility] Dosing Plan
- Empiric Dosing
Initial / Loading Dose: 1000 mg 12/29/23 - pre IRAD procedure for HD tunneled catheter
Maintenance Regimen: dose by random level HD days
Plan
- Plan
Initial / Loading Dose: 1000 mg 12/29/23
Maintenance Regimen: dose by random level pre HD
Monitoring: random level AM 12/30/23
Pharmacokinetics Vancomycin I
- -
Patient Age: 68
Patient Sex: Female
Vancomycin Day #: 1
Indication: Bacteremia
Requesting Provider: Ernie
Pertinent Antimicrobial Allergies:
cefazolin - itching
Height / Weight:
Height 5 ft 4 in
Actual Weight 64.127 kg
Pertinent Past Medical History: ESRD on HD
- Vital Signs / Lab Results
Temp Pulse Resp BP Pulse Ox
98.0 F 77 20 185/67 99
12/29/23 13:31 12/29/23 13:31 12/29/23 13:31 12/29/23 13:31 12/29/23 13:31
Lab Results - Hematology
12/27/23 12/28/23
13:33 10:09
WBC 6.9 5.9
Lab Results - Chemistry
12/27/23 12/27/23 12/28/23
13:33 15:05 10:09
BUN Cancelled 36 H 48 H
Creatinine Cancelled 6.3 H* 7.2 H*
Estimated Creat Clear Cancelled 7 6
Albumin Cancelled 3.1 L 3.2 L
Microbiology Results
12/28/23 15:07 Blood Culture - Preliminary
Blood/Venous Positive culture in progress
Gram Stain - Final
12/27/23 21:15 MRSA Screen - Final
Nose Staph aureus MRSA
12/27/23 13:33 Influenza Types A & B (SRINIVAS) - Final
Nasal Swab Negative for Influenza A & B, NAAT
Negative results must be combined with clinical observations
and patient history.
Nucleic Acid Amplification test (NAAT)performed on the
[employer] platform.
[2023-12-29] MEDS: VANCOCIN 200 IV (14:28)
[2023-12-29] MEDS: FLUSH (NSS) 1 FLUSH IV (14:28)
[2023-12-29 15:58] VITALS: BP 185/73; BP_SYST 80
[2023-12-29 16:23] VITALS: BP 159/92
--- NOTE | 2023-12-29 16:29 | PTCARENOTE ---
Received pt s/p L chest tunneled Dialysis Cath. Pt AAO*4 Vital signs stable. Pt denies any Chest Pain or shortness of breath. training lead at bedside to access and dialysis patient.
--- NOTE | 2023-12-29 17:00 | W.PN.NEPH.HD ---
Assessment
-
no complaints on HD
dialyzing through new TDC
Progress Note - Hemodialysis
-
Date of Service: December 29, 2023
Duration: 30 minutes and 3 hours
Potassium Bath: 3
Calcium Bath: 2.5
Opti-Dialyzer: 160
Ultrafiltration: Other
Blood Flow: 400
Dialysate Flow: 600
[2023-12-29] MEDS: TYLENOL 650 MG PO (17:24)
[2023-12-29] MEDS: RETACRIT 6000 UNITS IV (17:33)
[2023-12-29] MEDS: MANNITOL 12.5 GRAMS IV (18:01)
[2023-12-29] MEDS: RENVELA PO (18:05)
[2023-12-29] MEDS: LIPITOR 10 MG PO (21:46)
[2023-12-29] MEDS: HEPARIN 5000 UNITS SC (21:46)
[2023-12-29] MEDS: DIOVAN 320 MG PO (21:48)
[2023-12-29] MEDS: LIDOCAINE 4% PATCH 2 PATCH TOPICAL (21:49)
[2023-12-29 23:40] VITALS: BP 177/81
[2023-12-30] MEDS: LOKELMA 10 GRAM PO ×2 (00:07→17:05)
[2023-12-30] MEDS: TYLENOL 650 MG PO ×3 (00:11→20:27)
[2023-12-30 00:17] VITALS: BP 165/71
[2023-12-30 06:00] VITALS: BMI 23.6
[2023-12-30] MEDS: CARAFATE 1 GRAM PO ×2 (06:05→15:03)
[2023-12-30 07:00] VITALS: BP 182/77
[2023-12-30] MEDS: APRESOLINE 25 MG PO ×2 (08:02→20:27)
[2023-12-30] MEDS: RENVELA 1600 MG PO ×3 (08:02→15:04)
[2023-12-30] MEDS: NEPHROCAP 1 CAPSULE PO (08:02)
[2023-12-30] MEDS: HEPARIN 5000 UNITS SC ×2 (08:03→20:22)
[2023-12-30] MEDS: COREG 25 MG PO ×2 (08:03→20:24)
[2023-12-30] MEDS: ASPIRIN ENTERIC COATED 325 MG PO (08:03)
[2023-12-30] MEDS: PROTONIX 40 MG PO (08:04)
[2023-12-30] MEDS: MIRALAX PO (08:04)
--- NOTE | 2023-12-30 11:39 | PHA.VAN.FU ---
Vancomycin Assessment / Plan
- Assessment
Hemodialysis Schedule: MWF
WBC's are: WNL
In the past 24 hrs, patient has been: Afebrile
- Assessment - Therapeutic Drug Monitoring
Random Level: 11.0 12/30/23 0544 - after 1 gm dose 12/29/23 and HD yesterday
- Dosing Plan
Continue: dose by level with HD
Dosing by Level: Hold off on dosing today
Dosing Comments: next HD is Monday
- Monitoring Plan
Random Level: will repeat random level Monday to make sure level is therapeutic
- Follow Up
Pharmacy will continue to follow.
Vancomycin Follow UP
- -
Patient Age: 68
Patient Sex: Female
Vancomycin Day #: 2
Indication: Bacteremia
Requesting Provider: Ernie
Pertinent Antimicrobial Allergies:
cefazolin - itching
Height / Weight:
Height 5 ft 4 in
Actual Weight 62.369 kg
Pertinent Past Medical History: ESRD on HD
- Vital Signs / Lab Results
Temp Pulse Resp BP Pulse Ox
98.3 F 72 14 182/77 99
12/30/23 07:00 12/30/23 08:03 12/30/23 07:00 12/30/23 08:03 12/30/23 07:00
Lab Results - Hematology
12/27/23 12/28/23
13:33 10:09
WBC 6.9 5.9
Lab Results - Chemistry
12/27/23 12/27/23 12/28/23
13:33 15:05 10:09
BUN Cancelled 36 H 48 H
Creatinine Cancelled 6.3 H* 7.2 H*
Estimated Creat Clear Cancelled 7 6
Albumin Cancelled 3.1 L 3.2 L
Microbiology Results
12/28/23 15:07 Blood Culture - Preliminary
Blood/Venous Coagulase neg. staphylococcus
Gram Stain - Final
12/29/23 10:23 Blood Culture - Preliminary
Blood/Venous Positive culture in progress
Gram Stain - Final
12/27/23 21:15 MRSA Screen - Final
Nose Staph aureus MRSA
Therapeutic Drug Monitoring
Random Vancomycin 11.0 ug/ml 12/30/23 05:44
--- NOTE | 2023-12-30 11:58 | W.PN.NEPH.PH ---
Today's Communication / Plan
-
- HD Monday
Assessment/Plan
-
Impression:
Falls back pain multiple joint arthralgias, weakness failure to thrive
End-stage renal disease Monday schedule
Multidrug-resistant hypertension
Hypoglycemia
Secondary hyperparathyroid
Hyperphosphatemia
Coronary artery disease
History of polycystic kidney disease
Right upper extremity AV graft, previous history of
�� interventions.
Angioplasty in October 2022
Peripheral arterial disease
Plan:
HD yesterday went well
noted to have +blood culutres, concerning due to TDC placement yesterday
- consider ID consult for assistance in management
- serial blood cultures
NILTON for anemia
fluid and dietary restrictions
-
-
Date of Service: December 30, 2023
CC / HPI / ROS
-
Chief Complaint:
ESRD on HD
History of Present Illness:
poorly functioning fistula
TDC placed but patients blood cultures positive
Review of Systems:
feeling well
wants to go home with [facility] [employer]
Labs
-
Labs:
WBC 5.9 10^3/uL (4.8-10.8) 12/28/23 10:09
RBC 2.83 10^6/uL (4.20-5.40) L 12/28/23 10:09
Hgb 8.7 g/dL (12.0-16.0) L 12/28/23 10:09
Hct 26.7 % (37.0-47.0) L 12/28/23 10:09
Plt Count 179 10^3/uL (130-400) 12/28/23 10:09
Sodium 132 mmol/L (135-145) L 12/28/23 10:09
Potassium 4.3 mmol/L (3.5-5.1) 12/28/23 10:09
Chloride 88 mmol/L (98-107) L 12/28/23 10:09
Carbon Dioxide 29 mmol/L (22-30) 12/28/23 10:09
BUN 48 mg/dl (7-17) H 12/28/23 10:09
Creatinine 7.2 mg/dL (0.6-1.0) H* 12/28/23 10:09
eGFR 5.67 12/28/23 10:09
Glucose 144 mg/dl (70-99) H 12/28/23 10:09
Calcium 9.1 mg/dl (8.4-10.2) 12/28/23 10:09
Albumin 3.2 g/dl (3.5-5.0) L 12/28/23 10:09
Physical Exam
-
Vital Signs:
Vital Signs
Temp Pulse Resp BP Pulse Ox
98.3 F 72 14 182/77 99
12/30/23 07:00 12/30/23 08:03 12/30/23 07:00 12/30/23 08:03 12/30/23 07:00
Cardiovascular:: Regular rate and rhythm
Respiratory:: Bilateral: Coarse
Lung Excursion:: Normal
Abdomen:: Nontender and Soft
Bowel Sounds:: Normal
Extremity Edema:: None: Bilateral:
Hwang Catheter: No
--- NOTE | 2023-12-30 12:32 | W.PN.ID1 ---
Date of Service
Date of Service: December 30, 2023
Today's Communication
Continue abx. Repeat blood cultures.
Assessment / Plan
Coag neg staph bacteremia (sustained)
Elevated Procalcitonin in the setting of ESRD
recent clot of RUE HD fistula
Recommendations:
- procalcitonin relatively uninterpretable in the setting of renal failure
- Repeat blood cultures.
- Awaiting further culture data regarding full identification of recovered coag negative staph and susceptibilities.
- colonized with MRSA - contact precautions
Continue with antibiotics (vancomycin)
Prior left upper extremity ultrasound (12/22/23) revealed clot. May ultimately need additional imaging of the area to assess extent of clot, expecially if blood cultures fail to clear.
Follow clinically
Chief Complaint
-: Bacteremia
Subjective / Review of Systems
Review of Systems: No Fever and No Chills
Vital Signs / Physical Exam
Vital Signs
Vital Signs
Temp Pulse Resp BP Pulse Ox
98.3 F 72 14 182/77 99
12/30/23 07:00 12/30/23 08:03 12/30/23 07:00 12/30/23 08:03 12/30/23 07:00
Physical Exam
Constitutional: No Acute Distress, Comfortable, Chronically Ill and Non-toxic
Eyes: No Conjunctival Hemorrhage
Cardiovascular: S1/S2; Negative S3/S4
Pulmonary: Non Labored
Extremities: Edema (Right upper extremity)
Neurological: Awake and Alert
Psychological: Calm
Objective Data
Lab Data
Lab Results
12/28/23 10:09
12/28/23 10:09
Estimated Creat Clear 6 ml/min 12/28/23 10:09
Total Bilirubin 1.0 mg/dl (0.2-1.3) 12/28/23 10:09
AST 31 U/L (14-36) 12/28/23 10:09
ALT 16 U/L (0-35) 12/28/23 10:09
Alkaline Phosphatase 70 U/L (38-126) 12/28/23 10:09
Most recent labs reviewed.
Micro Results:
12/29/23 14:09 Blood Culture - Preliminary
Blood/Venous Positive culture in progress
Gram Stain - Final
12/28/23 15:07 Blood Culture - Preliminary
Blood/Venous Coagulase neg. staphylococcus
Gram Stain - Final
12/29/23 10:23 Blood Culture - Preliminary
Blood/Venous Positive culture in progress
Gram Stain - Final
12/29/23 14:08 Blood Culture - Pending
Blood/Venous
12/27/23 21:15 MRSA Screen - Final
Nose Staph aureus MRSA
12/27/23 13:33 Influenza Types A & B (SRINIVAS) - Final
Nasal Swab Negative for Influenza A & B, NAAT
Negative results must be combined with clinical observations
and patient history.
Nucleic Acid Amplification test (NAAT)performed on the
[employer] platform.
Care Review
Plan reviewed with: Physician (Hospitalist)
[2023-12-30 14:05] VITALS: BP 152/62; PULSE 56; O2SAT 100
--- NOTE | 2023-12-30 14:42 | W.PN.HOSP.TC ---
Today's Communication/Plan
-
Input of ID appreciated. Will follow Culture results
Assessment / Plan
Assessment / Plan
# Acute lower back pain/bilateral lower extremity weakness secondary to arthritis
diffuse weakness of unclear etiology, though component of ESRD/ poorly functioning dialysis site
IRAD to placed tunneled catheter
-Hip x-ray from of left shows no abnormality
- lumbar x-ray: Markedly limited evaluation as a result of overlying intestinal contrast.
No gross findings to suggest lumbar vertebral compression fracture.
-Chest x-ray shows minimal patchy opacity in the left midlung which could represent subsegmental atelectasis/pneumonia
-CT head shows no acute abnormality
-Levaquin given in ER for pneumonia but did not continue, instead ordered blood cx
Coag Neg Staph
-Procalcitonin 2.79 (but pt with ESRD)
-PT/OT
-Tylenol and lidocaine patch for lower back pain,
Coag Neg Staph
Blood Cx + with Coag Neg Staph. Pt upset that she won't be going home today, but understands need for further evaluation and treatment of apparent bacteremia
# Hypoglycemia resolved
-glu 79-147
ESRD on hemodialysis
History of polycystic kidney disease
-Continue calcitriol
-Continue Lokelma for high potassium
K today 4.3
-Continue sevelamer
-Nephrology consulted for dialysis
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
-Continue Cinacalcet
Chronic anemia of renal disease
-Hemoglobin relatively stable at 8.9
Coronary artery disease
-Continue aspirin
Essential hypertension
-Continue Coreg, hydralazine, valsartan
Hypercholesterolemia
-Continue statin
GERD
-Continue Protonix, sucralfate
Smoker
-Smokes 2 cigarettes a day
Full code
DVT prophylaxis heparin
Renal diet
Anticipated Discharge: > 48 hours
Subjective/Interval History
-
Date of Service: December 30, 2023
Feels markedly better since was able to receive dialysis with the tunneled catheter
Objective Data
-
Vital Signs:
Vital Signs
Temp Pulse Resp BP Pulse Ox
98.3 F 72 14 182/77 99
12/30/23 07:00 12/30/23 08:03 12/30/23 07:00 12/30/23 08:03 12/30/23 07:00
I&O
12/29/23 12/30/23 12/31/23
06:59 06:59 07:59
Intake Total 600 / 600 755 / 755
Balance 600 / 600 755 / 755
Review of Systems
-
History Source: Patient and Coordinated Provider
Constitutional: Denies Fever
EENT: Reports No Symptoms Reported
Respiratory: Reports No Symptoms; Denies Cough or Trouble Breathing
Cardiac: Reports No Symptoms; Denies Chest Pain or Palpitations
Abdomen/GI: Reports No Symptoms
Genitourinary: Reports No Symptoms
Neuro: Reports No Symptoms
Physical Exam
-
General: Well Developed, Well Nourished and No Apparent Distress
HEENT: Normocephalic, Atraumatic and Moist Mucous Membranes
Respiratory: Clear to Auscultation; Negative Wheezes, Rales or Rhonchi
Cardiac: Regular Rhythm and S1/S2
GI: Soft, Nontender and Nondistended
Musculoskeletal: No Clubbing, No Cyanosis and No Edema
Neuro: Awake, Alert and Oriented
[2023-12-30 15:00] VITALS: BP 110/76
[2023-12-30] MEDS: LIPITOR 10 MG PO (20:22)
[2023-12-30] MEDS: DIOVAN 320 MG PO (20:27)
[2023-12-30 23:59] VITALS: BP 177/71
[2023-12-31 06:00] VITALS: BMI 24.2
[2023-12-31] MEDS: CARAFATE 1 GRAM PO ×2 (06:00→16:32)
[2023-12-31 07:19] LABS: Vancomycin Random 9.3 ug/ml
[2023-12-31 07:26] VITALS: BP 156/66
[2023-12-31] MEDS: TYLENOL 650 MG PO ×3 (07:47→23:18)
[2023-12-31] MEDS: PROTONIX 40 MG PO (07:48)
[2023-12-31] MEDS: NEPHROCAP 1 CAPSULE PO (07:48)
[2023-12-31] MEDS: COREG 25 MG PO ×2 (07:48→20:34)
[2023-12-31] MEDS: APRESOLINE 25 MG PO ×2 (07:48→20:35)
[2023-12-31] MEDS: HEPARIN 5000 UNITS SC ×2 (07:49→20:35)
[2023-12-31] MEDS: ASPIRIN ENTERIC COATED 325 MG PO (07:49)
--- NOTE | 2023-12-31 07:50 | PHA.VAN.FU ---
Vancomycin Assessment / Plan
- Assessment
Hemodialysis Schedule: MWF
WBC's are: WNL
In the past 24 hrs, patient has been: Afebrile
Concomitant Antimicrobials: none
- Assessment - Therapeutic Drug Monitoring
Random Level: 9.3 ( last dose 1000 mg Monday )
- Dosing Plan
Continue: dose by level with HD
Dosing by Level: Re-dose today (500 mg x 1 (~ 8 mg/kg))
Dosing Comments: will redose today since level has fallen below 10
- Monitoring Plan
Random Level: AM 01/01/24 - next probable HD day
- Follow Up
Pharmacy will continue to follow.
Vancomycin Follow UP
- -
Patient Age: 68
Patient Sex: Female
Vancomycin Day #: 3
Indication: Bacteremia
Requesting Provider: Ernie
Pertinent Antimicrobial Allergies:
cefazolin - itching
Height / Weight:
Height 5 ft 4 in
Actual Weight 63.957 kg
Pertinent Past Medical History: ESRD on HD
- Vital Signs / Lab Results
Temp Pulse Resp BP Pulse Ox
98.3 F 80 16 177/71 99
12/30/23 23:59 12/30/23 23:59 12/30/23 23:59 12/30/23 23:59 12/30/23 23:59
Lab Results - Hematology
12/28/23
10:09
WBC 5.9
Lab Results - Chemistry
12/28/23
10:09
BUN 48 H
Creatinine 7.2 H*
Estimated Creat Clear 6
Albumin 3.2 L
Microbiology Results
12/29/23 14:08 Blood Culture - Preliminary
Blood/Venous Positive culture in progress
Gram Stain - Final
12/29/23 14:09 Blood Culture - Preliminary
Blood/Venous Positive culture in progress
Gram Stain - Final
12/28/23 15:07 Blood Culture - Preliminary
Blood/Venous Coagulase neg. staphylococcus
Gram Stain - Final
12/29/23 10:23 Blood Culture - Preliminary
Blood/Venous Positive culture in progress
Gram Stain - Final
12/27/23 21:15 MRSA Screen - Final
Nose Staph aureus MRSA
Therapeutic Drug Monitoring
Random Vancomycin 9.3 ug/ml 12/31/23 06:15
[2023-12-31] MEDS: MIRALAX PO (07:53)
[2023-12-31] MEDS: RENVELA 1600 MG PO ×3 (07:53→16:32)
[2023-12-31] MEDS: VANCOCIN HCL 500 MG 100 IV (08:13)
--- NOTE | 2023-12-31 11:21 | W.PN.HOSP.TC ---
Today's Communication/Plan
-
continue IV Vancomycin
recheck labs
Assessment / Plan
Assessment / Plan
# Acute lower back pain/bilateral lower extremity weakness secondary to arthritis
diffuse weakness of unclear etiology, though component of ESRD/ poorly functioning dialysis site/bacteremia
IRAD to placed tunneled catheter
-Hip x-ray from of left shows no abnormality
- lumbar x-ray: Markedly limited evaluation as a result of overlying intestinal contrast.
No gross findings to suggest lumbar vertebral compression fracture.
-Chest x-ray shows minimal patchy opacity in the left midlung which could represent subsegmental atelectasis/pneumonia
-CT head shows no acute abnormality
-Levaquin given in ER for pneumonia but did not continue, instead ordered blood cx
Coag Neg Staph,
-Procalcitonin 2.79 (but pt with ESRD)
-PT/OT
-Tylenol and lidocaine patch for lower back pain,
Blood Cx + with Coag Neg Staph. demonstrates 4 positive blood samples
# Hypoglycemia resolved
-glu 79-147
ESRD on hemodialysis
History of polycystic kidney disease
-Continue calcitriol
-Continue Lokelma for high potassium
K today 4.3
-Continue sevelamer
-Nephrology consulted for dialysis
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
-Continue Cinacalcet
Chronic anemia of renal disease
-Hemoglobin relatively stable at 8.9
Coronary artery disease
-Continue aspirin
Essential hypertension
-Continue Coreg, hydralazine, valsartan
Hypercholesterolemia
-Continue statin
GERD
-Continue Protonix, sucralfate
Smoker
-Smokes 2 cigarettes a day
Full code
DVT prophylaxis heparin
Renal diet
call placed and updated sister, Margarita 12/30
Anticipated Discharge: > 48 hours
Subjective/Interval History
-
Date of Service: December 31, 2023
Looks better
Objective Data
-
Vital Signs:
Vital Signs
Temp Pulse Resp BP Pulse Ox
97.4 F 81 16 177/71 98
12/31/23 07:26 12/31/23 07:48 12/31/23 07:26 12/31/23 07:48 12/31/23 07:26
I&O
12/30/23 12/31/23 01/01/24
05:59 06:59 06:59
Intake Total 270 / 270
Output Total 200 / 200
Balance 70 / 70
Review of Systems
-
History Source: Patient and Coordinated Provider
Constitutional: Denies Fever
EENT: Reports No Symptoms Reported
Respiratory: Reports No Symptoms; Denies Cough or Trouble Breathing
Cardiac: Reports No Symptoms; Denies Chest Pain or Palpitations
Abdomen/GI: Reports No Symptoms
Genitourinary: Reports No Symptoms
Neuro: Reports No Symptoms
Physical Exam
-
General: Well Developed, Well Nourished and No Apparent Distress
HEENT: Normocephalic, Atraumatic and Moist Mucous Membranes
Respiratory: Clear to Auscultation; Negative Wheezes, Rales or Rhonchi
Cardiac: Regular Rhythm and S1/S2
GI: Soft, Nontender and Nondistended
Musculoskeletal: No Clubbing, No Cyanosis and No Edema
Neuro: Awake, Alert and Oriented
--- NOTE | 2023-12-31 11:33 | W.PN.NEPH.PH ---
Today's Communication / Plan
-
- pending blood culutres
- HD tomororw
Assessment/Plan
-
Impression:
Falls back pain multiple joint arthralgias, weakness failure to thrive
End-stage renal disease Monday schedule
Multidrug-resistant hypertension
Hypoglycemia
Secondary hyperparathyroid
Hyperphosphatemia
Coronary artery disease
History of polycystic kidney disease
Right upper extremity AV graft, previous history of
�� interventions.
Angioplasty in October 2022
Peripheral arterial disease
Plan:
HD planned for tomorrow per [facility] schedule
noted to have +blood culutres, concerning due to TDC placement yesterday
- ID on board, appreciate recs
- initial cultures growing CONS
NILTON for anemia
fluid and dietary restrictions
-
-
Date of Service: December 31, 2023
CC / HPI / ROS
-
Chief Complaint:
ESRD on HD
History of Present Illness:
poorly functioning fistula
TDC placed but patients blood cultures positive
Review of Systems:
feeling well
wants to go home with [employer]
Labs
-
Labs:
WBC 5.9 10^3/uL (4.8-10.8) 12/28/23 10:09
RBC 2.83 10^6/uL (4.20-5.40) L 12/28/23 10:09
Hgb 8.7 g/dL (12.0-16.0) L 12/28/23 10:09
Hct 26.7 % (37.0-47.0) L 12/28/23 10:09
Plt Count 179 10^3/uL (130-400) 12/28/23 10:09
Sodium 132 mmol/L (135-145) L 03/07/24 10:09
Potassium 4.3 mmol/L (3.5-5.1) 12/28/23 10:09
Chloride 88 mmol/L (98-107) L 12/28/23 10:09
Carbon Dioxide 29 mmol/L (22-30) 12/28/23 10:09
BUN 48 mg/dl (7-17) H 12/28/23 10:09
Creatinine 7.2 mg/dL (0.6-1.0) H* 12/28/23 10:09
eGFR 5.67 12/28/23 10:09
Glucose 144 mg/dl (70-99) H 12/28/23 10:09
Calcium 9.1 mg/dl (8.4-10.2) 12/28/23 10:09
Albumin 3.2 g/dl (3.5-5.0) L 12/28/23 10:09
Physical Exam
-
Vital Signs:
Vital Signs
Temp Pulse Resp BP Pulse Ox
97.4 F 81 16 177/71 98
12/31/23 07:26 12/31/23 07:48 12/31/23 07:26 12/31/23 07:48 12/31/23 07:26
Cardiovascular:: Regular rate and rhythm
Respiratory:: Bilateral: CTA
Lung Excursion:: Normal
Abdomen:: Nontender and Soft
Bowel Sounds:: Normal
Extremity Edema:: None: Bilateral:
Hwang Catheter: No
--- NOTE | 2023-12-31 12:28 | CM ---
Spoke with pt who hopes to dc soon. Would like Home VN. Referral placed with [facility] per request.
[2023-12-31 15:12] VITALS: BP 174/79
--- NOTE | 2023-12-31 15:44 | W.PN.ID1 ---
Date of Service
Date of Service: December 31, 2023
Today's Communication
Continue antibiotics. Follow repeat blood cultures.
Assessment / Plan
Coag neg staph bacteremia (sustained)
Elevated Procalcitonin in the setting of ESRD
recent manipulation of RUE HD graft
Recommendations:
- procalcitonin relatively uninterpretable in the setting of renal failure
- Repeat blood cultures.
- Awaiting further culture data regarding full identification of recovered coag negative staph and susceptibilities.
- colonized with MRSA - contact precautions
Continue with antibiotics (vancomycin)
Prior left upper extremity ultrasound (12/22/23) revealed clot. May ultimately need additional imaging of the area to assess extent of clot, expecially if blood cultures fail to clear. Additionally, persistence of bacteremia may indicate infection
of the graft itself.
Will continue to follow clinically.
Chief Complaint
-: Bacteremia
Subjective / Review of Systems
Patient seen and examined. Reports some right arm swelling, but no pain. Denies fevers or chills.
Review of Systems: No Fever and No Chills
Vital Signs / Physical Exam
Vital Signs
Vital Signs
Temp Pulse Resp BP Pulse Ox
97.4 F 81 16 177/71 98
12/31/23 07:26 12/31/23 07:48 12/31/23 07:26 12/31/23 07:48 12/31/23 07:26
Physical Exam
Constitutional: No Acute Distress, Comfortable and Non-toxic
Eyes: No Conjunctival Hemorrhage and Sclera Anicteric
Cardiovascular: S1/S2; Negative S3/S4
Pulmonary: Non Labored
Extremities: Other (Right upper extremity with edema. AV graft area with bruit and thrill.)
Neurological: Awake and Alert
Psychological: Calm
Objective Data
Lab Data
Lab Results
12/28/23 10:09
12/28/23 10:09
Estimated Creat Clear 6 ml/min 12/28/23 10:09
Total Bilirubin 1.0 mg/dl (0.2-1.3) 12/28/23 10:09
AST 31 U/L (14-36) 12/28/23 10:09
ALT 16 U/L (0-35) 12/28/23 10:09
Alkaline Phosphatase 70 U/L (38-126) 12/28/23 10:09
Most recent labs reviewed.
Micro Results:
12/30/23 13:04 Blood Culture - Preliminary
Blood/Venous No Growth in 24 hours- Final report to follow
12/28/23 15:07 Blood Culture - Preliminary
Blood/Venous Coagulase neg. staphylococcus
Gram Stain - Final
12/29/23 14:08 Blood Culture - Preliminary
Blood/Venous Coagulase neg. staphylococcus
Gram Stain - Final
12/29/23 14:09 Blood Culture - Preliminary
Blood/Venous Coagulase neg. staphylococcus
Gram Stain - Final
12/29/23 10:23 Blood Culture - Preliminary
Blood/Venous Coagulase neg. staphylococcus
Gram Stain - Final
12/31/23 06:15 Blood Culture - Pending
Blood/Venous
12/27/23 21:15 MRSA Screen - Final
Nose Staph aureus MRSA
12/27/23 13:33 Influenza Types A & B (SRINIVAS) - Final
Nasal Swab Negative for Influenza A & B, NAAT
Negative results must be combined with clinical observations
and patient history.
Nucleic Acid Amplification test (NAAT)performed on the
[employer] platform.
[2023-12-31] MEDS: LOKELMA 10 GRAM PO (16:31)
[2023-12-31] MEDS: APRESOLINE 10 MG PO (17:04)
[2023-12-31 18:01] VITALS: BP 168/91
[2023-12-31] MEDS: DIOVAN 320 MG PO (21:57)
[2023-12-31] MEDS: LIPITOR 10 MG PO (21:58)
[2023-12-31 22:55] VITALS: BP 174/75
[2023-12-31] MEDS: BENADRYL 25 MG IV (23:20)
--- NOTE | 2023-12-31 23:30 | PTCARENOTE ---
At 2300 pt stated that their tongue and neck felt 'full.' Patient stated that this has occurred previously and resolved on its own. JEREMY Luna notified and one time stat med of Benadryl ordered, and administered at 2320. Patient reassessed about
half an hour later, and symptoms were resolved.
[2024-01-01 03:35] VITALS: BP 161/71
[2024-01-01] MEDS: TYLENOL 650 MG PO ×2 (05:32→15:58)
[2024-01-01 06:00] VITALS: BMI 24.7
[2024-01-01] MEDS: RENVELA 1600 MG PO ×3 (06:08→16:18)
[2024-01-01] MEDS: CARAFATE 1 GRAM PO ×2 (06:34→16:18)
[2024-01-01 07:06] VITALS: BP 168/70
[2024-01-01] MEDS: COREG 25 MG PO ×2 (08:01→20:13)
[2024-01-01] MEDS: ASPIRIN ENTERIC COATED 325 MG PO (08:02)
[2024-01-01] MEDS: SENSIPAR 60 MG PO (08:03)
[2024-01-01] MEDS: MIRALAX 17 GRAMS PO (08:03)
[2024-01-01] MEDS: PROTONIX 40 MG PO (08:03)
[2024-01-01] MEDS: NEPHROCAP 1 CAPSULE PO (08:03)
[2024-01-01] MEDS: APRESOLINE 25 MG PO ×2 (08:03→20:12)
[2024-01-01] MEDS: HEPARIN 5000 UNITS SC ×2 (08:04→20:12)
[2024-01-01] MEDS: ROCALTROL 0.5 MCG PO (08:08)
[2024-01-01 08:11] LABS: % Basophils 0.4 % (0-2); % Eosinophils 5.8 % (0-6); % Immature Granulocytes 0.5 % (0-0.5); % Lymphocytes 20.3 % (20.5-51.1); % Monocytes 10.6 % (1.7-9.3); % Neutrophils 62.4 % (42.2-75.2); Absolute Eosinophils 0.3 10^3/uL (0-0.7); Absolute Lymphocytes 1.1 10^3/uL (1.2-3.4); Absolute Monocytes 0.6 10^3/uL (0.1-0.6); Absolute Neutrophils 3.4 10^3/uL (1.4-6.5); Hematocrit 25.5 % (37.0-47.0); Hemoglobin 8.3 g/dL (12.0-16.0); Mean Corp Hgb Conc. 32.5 g/dL (33.0-37.0); Mean Corpuscular Hgb 30.9 pg (27.0-31.0); Mean Corpuscular Volume 94.8 fL (81.0-99.0); Mean Platelet Volume 10.5 fL (7.4-10.4); Nucleated Red Blood Cells % 0 %; Platelet Count 197 10^3/uL (130-400); Red Blood Cell Count 2.69 10^6/uL (4.20-5.40); Red Cell Dist. Width 15.8 % (11.5-14.5); White Blood Cell Count 5.5 10^3/uL (4.8-10.8)
[2024-01-01 08:30] LABS: Vancomycin Random 14.3 ug/ml
[2024-01-01 08:54] LABS: Blood Urea Nitrogen 40 mg/dl (7-17); Calcium 9.2 mg/dl (8.4-10.2); Carbon Dioxide 26 mmol/L (22-30); Chloride 88 mmol/L (98-107); Estimated Creatinine Clearance 5 ml/min; Glucose 81 mg/dl (70-99); Potassium 3.8 mmol/L (3.5-5.1); Sodium 126 mmol/L (135-145); eGFR 4.71
--- NOTE | 2024-01-01 08:55 | W.PN.ID1 ---
Date of Service
Date of Service: January 01, 2024
Today's Communication
continue vancomycin
Assessment / Plan
Coag neg staph bacteremia (sustained)
recent manipulation of RUE HD fistula with stent. Failed LUE fistula 10/12 - few strep in culture
Recommendations:
- Repeat blood cultures until persistently clear in two sets
- Awaiting further culture data regarding full identification of recovered coag negative staph and susceptibilities.
- colonized with MRSA - contact precautions
- Continue vancomycin
- TTE
- Prior right upper extremity ultrasound (12/22/23) revealed clot; s/p declotting same day. 12/28 vascular US: occlusion of the right brachiocephalic vein. Persistence of bacteremia may indicate infection of the graft itself.
- consult vascular surgery
- Will continue to follow clinically
Chief Complaint
-: Bacteremia
Subjective / Review of Systems
afebrile
bp hypertensive
minimal leukopenia
note progression of hyponatremia
k normal
vanc 14 this am
CONS in multiple blood cultures
Vital Signs / Physical Exam
Vital Signs
Vital Signs
Temp Pulse Resp BP Pulse Ox
98 F 68 16 168/70 98
01/01/24 07:06 01/01/24 07:06 01/01/24 07:06 01/01/24 07:06 01/01/24 07:06
Physical Exam
Constitutional: No Acute Distress and Chronically Ill
Cardiovascular: Regular Rate and S1/S2; Negative Murmur or Rub
Pulmonary: Clear and Symmetric; Negative Wheezes or Rales
Gastrointestinal: Soft, Non Tender, Non Distended and Normal Bowel Sounds
Extremities: Other (no erythema, warmth, fluctuance or tenderness over the RUE fistulae. There is a distal thrill. LUE fistulae no thrill, no erythema, warmth or tenderness)
Skin: Warm and Dry; Negative Rash or Jaundice
Neurological: Awake
Objective Data
Lab Data
Lab Results
01/01/24 07:21
01/01/24 07:21
Estimated Creat Clear 5 ml/min 01/01/24 07:21
Total Bilirubin 1.0 mg/dl (0.2-1.3) 12/28/23 10:09
AST 31 U/L (14-36) 12/28/23 10:09
ALT 16 U/L (0-35) 12/28/23 10:09
Alkaline Phosphatase 70 U/L (38-126) 12/28/23 10:09
Most recent labs reviewed.
Micro Results:
12/30/23 13:04 Blood Culture - Preliminary
Blood/Venous Positive culture in progress
Gram Stain - Final
01/01/24 07:21 Blood Culture - Pending
Blood/Venous
12/28/23 15:07 Blood Culture - Preliminary
Blood/Venous Coagulase neg. staphylococcus
Gram Stain - Final
12/31/23 06:15 Blood Culture - Preliminary
Blood/Venous No Growth in 24 hours- Final report to follow
12/29/23 14:08 Blood Culture - Preliminary
Blood/Venous Coagulase neg. staphylococcus
Gram Stain - Final
12/29/23 14:09 Blood Culture - Preliminary
Blood/Venous Coagulase neg. staphylococcus
Gram Stain - Final
12/29/23 10:23 Blood Culture - Preliminary
Blood/Venous Coagulase neg. staphylococcus
Gram Stain - Final
12/27/23 21:15 MRSA Screen - Final
Nose Staph aureus MRSA
12/27/23 13:33 Influenza Types A & B (SRINIVAS) - Final
Nasal Swab Negative for Influenza A & B, NAAT
Negative results must be combined with clinical observations
and patient history.
Nucleic Acid Amplification test (NAAT)performed on the
[employer] platform.
Care Review
Plan reviewed with: Physician (Dr Hwang - consult)
--- NOTE | 2024-01-01 09:19 | PHA.VAN.FU ---
Vancomycin Assessment / Plan
- Assessment
Hemodialysis Schedule: MWF
Last Hemodialysis performed: 12/28
WBC's are: WNL
In the past 24 hrs, patient has been: Afebrile
- Assessment - Therapeutic Drug Monitoring
Random Level: 14.3 (~23 H post 500 mg dose)
- Dosing Plan
Continue: to dose by level with HD scheduled
Dosing by Level: Re-dose today (500 mg post HD)
- Monitoring Plan
Random Level: 01/02 am
- Follow Up
Pharmacy will continue to follow.
Vancomycin Follow UP
- -
Patient Age: 68
Patient Sex: Female
Vancomycin Day #: 4
Indication: Bacteremia
Requesting Provider: Ernie
Pertinent Antimicrobial Allergies:
cefazolin - itching
Height / Weight:
Height 5 ft 4 in
Actual Weight 65.346 kg
Pertinent Past Medical History: ESRD on HD
- Vital Signs / Lab Results
Temp Pulse Resp BP Pulse Ox
98 F 68 16 168/70 98
01/01/24 07:06 01/01/24 07:06 01/01/24 07:06 01/01/24 07:06 01/01/24 07:06
Lab Results - Hematology
01/01/24
07:21
WBC 5.5
Lab Results - Chemistry
01/01/24
07:21
BUN 40 H
Creatinine 8.4 H*
Estimated Creat Clear 5
Microbiology Results
12/28/23 15:07 Blood Culture - Preliminary
Blood/Venous Staphylococcus epidermidis
Coagulase neg. staphylococcus
Gram Stain - Final
12/30/23 13:04 Blood Culture - Preliminary
Blood/Venous Positive culture in progress
Gram Stain - Final
12/31/23 06:15 Blood Culture - Preliminary
Blood/Venous No Growth in 24 hours- Final report to follow
12/29/23 14:08 Blood Culture - Preliminary
Blood/Venous Coagulase neg. staphylococcus
Gram Stain - Final
12/29/23 14:09 Blood Culture - Preliminary
Blood/Venous Coagulase neg. staphylococcus
Gram Stain - Final
12/29/23 10:23 Blood Culture - Preliminary
Blood/Venous Coagulase neg. staphylococcus
Gram Stain - Final
Therapeutic Drug Monitoring
Random Vancomycin 14.3 ug/ml 01/01/24 07:21
[2024-01-01] MEDS: LIDOCAINE 4% PATCH 2 PATCH TOPICAL (10:07)
--- NOTE | 2024-01-01 11:41 | CON.VAS ---
Consultation
Consultation Request
Date/Time Consultation Requested: 01/01/24
Date/Time Consultation Performed: 01/01/24 11:30
Performing Provider: Jaiden
Reason for Consultation: Eval of RUE AVG; bacteremia
Medical History
-
Chief Complaint: Right arm swelling; bacteremia; inability to use RUE AVG
History of Present Illness:
68-year-old female
Well-known to the vascular surgery service
Recent thrombosed right upper extremity AV graft requiring percutaneous declot on 12/22/2023
Went home after procedure
Has been successfully dialyzed since that time
Now admitted with falls
Bacteremic
She denies fevers or chills at home
No complaints of systemic symptoms at home
No trouble with hemodialysis at the outside facility
Reported issues with needle cannulation here at [facility]
Now has a dialysis catheter in her left chest
She is currently well-appearing and in no acute distress
No complaints except for right arm swelling
Right arm swelling is diffuse and has increased in size since the declot
Past Medical History
Past Medical History: Renal Failure
Past Surgical History: Other (Multiple access procedures)
Allergies / Home Medications
Allergy/AdvReac Type Severity Reaction Status Date / Time
cefazolin [From [facility]] Allergy Itching Verified 12/27/23 11:04
Medication Instructions Recorded Confirmed Type
aspirin 325 mg tablet,delayed 325 mg PO DAILY Blood Clot 03/14/22 12/27/23 History
release Prevention/Tx
sodium zirconium cyclosilicate 10 10 g PO QPM high potassium 06/13/22 12/27/23 History
gram oral powder packet (Lokelma)
carvedilol 25 mg tablet 25 mg PO BID Heart 10/21/22 12/27/23 History
Disease/Condition
valsartan 320 mg tablet 320 mg PO HS Blood pressure 10/21/22 12/27/23 History
sucralfate 1 gram tablet 1 g PO BID Gastrointestinal Issue 01/30/23 12/27/23 History
atorvastatin 10 mg tablet 10 mg PO HS High Cholesterol 05/15/23 12/27/23 History
vit B complx, C-iron 8 mg-folic 1 tab PO DAILY Supplement 05/15/23 12/27/23 History
acid 800 mcg-D3 1,000 unit-zinc
tablet (ProRenal)
pantoprazole 40 mg tablet,delayed 40 mg PO DAILY #30 tabs 07/05/23 12/27/23 Rx
release (Protonix)
cinacalcet 60 mg tablet (Sensipar) 60 mg PO MOWEFR@0800 09/18/23 12/27/23 History
sevelamer carbonate 800 mg tablet 1,600 mg PO AC 09/18/23 12/27/23 History
(Renvela)
polyethylene glycol 3350 17 17 g PO DAILY 09/21/23 12/27/23 History
gram/dose oral powder (Miralax)
calcitriol 0.5 mcg capsule 0.5 mcg PO MOWEFR@0800 12/22/23 12/27/23 History
hydralazine 25 mg tablet 25 mg PO BID 12/22/23 12/27/23 History
lidocaine 4 % topical patch 2 patch topical DAILY PRN apply to 12/22/23 12/27/23 History
left hip/thigh and left lower back
oxycodone 5 mg tablet 5 mg PO Q4HPRN PRN severe pain 12/27/23 12/27/23 History
Physical Exam
Vital Signs
Temp Pulse Resp BP Pulse Ox
98 F 68 16 168/70 98
01/01/24 07:06 01/01/24 07:06 01/01/24 07:06 01/01/24 07:06 01/01/24 07:06
Lab Results
01/01/24 07:21
01/01/24 07:21
Physical Exam
General: Well Developed, No Apparent Distress and Comfortable
HEENT: Normocephalic
Respiratory: Non Labored Respirations
Musculoskeletal: Edema (right arm diffusely)
Skin: Warm, Dry and Other (RUE AVG patent. + thrill. No external signs of infection)
Neuro: AO x 3
Psych: Calm
Assessment / Plan
-
Personally reviewed the dialysis access duplex images. The graft is widely patent with robust flow volumes. No ann marie-graft/adjacent fluid collections to suggest abscess or infection. The medial upper arm collection near the axilla is chronic and
there is no flow. Also reviewed the prior ultrasound along with the previous venograms from the fall 2022, the recent f'gram and the images from the TDC insertion.
Right arm swelling is almost certainly secondary to the strong flow volumes through the graft following recent declot in the setting of a chronic central venous occlusion. She currently has a functioning catheter in the left chest. Ultrasound of
the access does not demonstrate any obvious signs to suggest graft infection.
Arm compression and elevation may help with her current symptoms however she would likely benefit from an attempt at crossing the central venous occlusion along with additional endovascular intervention ([employer]/stent) if successful (right arm/graft
access +/- femoral venous access). This can be done on this admission however given that we may have to place a covered stent if we are successful at crossing the central venous occlusion I would like her to have negative blood cultures before
moving forward with this procedure.
Will follow along peripherally.
Chris Hwang III, MD
[facility] Vascular Surgery
[phone] (vdia)
--- NOTE | 2024-01-01 12:40 | CM ---
Patient for HD today.
Continue IV anbx.
Plan: home with [facility] when stable.
--- NOTE | 2024-01-01 13:27 | VNURNOTE ---
Home Health Liaison met with patient at 1215 to discuss [facility] nurse/therapy, visits, schedule and homebound status. Patient is agreeable and understands that visits at home will be 2-3 x per week to assess and teach medical management.
[facility] brochure provided with contact information. Patient is aware that [facility] will contact her for start of care in 1-2 days after discharge from .
[facility] referral completed previously and accepted in [facility].
--- NOTE | 2024-01-01 14:28 | W.PN.HOSP.TC ---
Today's Communication/Plan
-
continue Vancomycin
Input of ID appreciated
Assessment / Plan
Assessment / Plan
# Acute lower back pain/bilateral lower extremity weakness secondary to arthritis
diffuse weakness of unclear etiology, though component of ESRD/ poorly functioning dialysis site/bacteremia
IRAD placed tunneled catheter Input of Dr. Hwang appreciated
-Hip x-ray from of left shows no abnormality
- lumbar x-ray: Markedly limited evaluation as a result of overlying intestinal contrast.
No gross findings to suggest lumbar vertebral compression fracture.
-Chest x-ray shows minimal patchy opacity in the left midlung which could represent subsegmental atelectasis/pneumonia
-CT head shows no acute abnormality
-Levaquin given in ER for pneumonia but did not continue, instead ordered blood cx
Coag Neg Staph,
-Procalcitonin 2.79 (but pt with ESRD)
-PT/OT
-Tylenol and lidocaine patch for lower back pain,
Pt currently on Vancomycin
source of bacteremia in process of attempted identification. TTE ordered
Blood Cx + with Coag Neg Staph. demonstrates 4 positive blood samples
Sample from 12/27 has been finalized Staph epi: Amoxicillin/Potas. Clavulanate <=4/2 R
Ampicillin <=2 R
Clindamycin >4 R
Gentamicin >8 R
Erythromycin >4 R
Levofloxacin >4 R
Oxacillin >2 R
Tetracycline <=4 S
Trimethoprim/Sulfamethoxazole >/38 R
Vancomycin 2 S
# Hypoglycemia resolved
-glu 79-147
ESRD on hemodialysis
History of polycystic kidney disease
-Continue calcitriol
-Continue Lokelma for high potassium
K today 3.8
-Continue sevelamer
-Nephrology consulted for dialysis
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
-Continue Cinacalcet
Chronic anemia of renal disease
-Hemoglobin relatively stable at 8.9
Coronary artery disease
-Continue aspirin
Essential hypertension
-Continue Coreg, hydralazine, valsartan
Hypercholesterolemia
-Continue statin
GERD
-Continue Protonix, sucralfate
Smoker
-Smokes 2 cigarettes a day
Full code
DVT prophylaxis heparin
Renal diet
call placed and updated sister, Margarita 12/30
Anticipated Discharge: > 48 hours
Subjective/Interval History
-
Date of Service: January 01, 2024
Appears comfortable
Objective Data
-
Labs:
Laboratory Results
01/01/24
07:21
WBC 5.5
Hgb 8.3 L
Hct 25.5 L
Plt Count 197
Sodium 126 L
Potassium 3.8
Chloride 88 L
Carbon Dioxide 26
BUN 40 H
Creatinine 8.4 H*
Glucose 81
Calcium 9.2
Vital Signs:
Vital Signs
Temp Pulse Resp BP Pulse Ox
98 F 68 16 168/70 98
01/01/24 07:06 01/01/24 07:06 01/01/24 07:06 01/01/24 07:06 01/01/24 07:06
I&O
12/31/23 01/01/24 01/02/24
06:59 06:59 06:59
Intake Total 3940 / 3940
Output Total 200 / 200
Balance 3740 / 3740
Review of Systems
-
History Source: Patient and Coordinated Provider
Constitutional: Denies Fever
EENT: Reports No Symptoms Reported
Respiratory: Reports No Symptoms; Denies Cough or Trouble Breathing
Cardiac: Reports No Symptoms; Denies Chest Pain or Palpitations
Abdomen/GI: Reports No Symptoms
Genitourinary: Reports No Symptoms
Neuro: Reports No Symptoms
Physical Exam
-
General: Well Developed, Well Nourished and No Apparent Distress
HEENT: Normocephalic, Atraumatic and Moist Mucous Membranes
Respiratory: Clear to Auscultation; Negative Wheezes, Rales or Rhonchi
Cardiac: Regular Rhythm and S1/S2
GI: Soft, Nontender and Nondistended
Musculoskeletal: No Clubbing, No Cyanosis and No Edema
Neuro: Awake, Alert and Oriented
[2024-01-01] MEDS: RETACRIT 6000 UNITS IV (14:32)
--- NOTE | 2024-01-01 14:54 | W.PN.NEPH.HD ---
Assessment
-
pt seen during HD
vitals stable
suspect AVG could be the source per ID with persistent bacteremia
await vasc comment
using CVC for now , this may need to be changed too
abxp er ID
strict renal diet
Progress Note - Hemodialysis
-
Date of Service: January 01, 2024
Duration: 30 minutes and 3 hours
Potassium Bath: 2
Calcium Bath: 2.5
Opti-Dialyzer: 160
Ultrafiltration: Other (1.5-2.5kg)
Blood Flow: 400
Dialysate Flow: 600
Heparin: no
EPO: 6000
[2024-01-01 15:21] VITALS: BP 139/65
[2024-01-01] MEDS: VANCOCIN HCL 500 MG 100 IV (15:37)
--- NOTE | 2024-01-01 16:30 | PTCARENOTE ---
Patient received awake and alert , able to make her needs known. Having dialysis at present. Requested Lidocaine patches for back anc left leg. Also received Tylenol for back pain. Call monk in reach.
--- NOTE | 2024-01-01 17:39 | VATNOTE ---
attempted to restart IV; unsuccessful x2; another VAT RN to attempt. Pt. just finished HD
[2024-01-01] MEDS: LOKELMA 10 GRAM PO (17:41)
[2024-01-01 22:17] VITALS: BP 159/64
[2024-01-01] MEDS: DIOVAN 320 MG PO (22:18)
[2024-01-01] MEDS: LIPITOR 10 MG PO (22:19)
[2024-01-02] VITALS (7 sets, daily range): BP systolic 71–168; BP diastolic 57–71; PULSE 77; O2SAT 100; BMI 24.1
[2024-01-02] MEDS: TYLENOL 650 MG PO ×3 (04:26→23:21)
[2024-01-02] MEDS: CARAFATE 1 GRAM PO ×2 (06:13→16:01)
[2024-01-02] MEDS: RENVELA 1600 MG PO ×3 (08:28→16:01)
[2024-01-02] MEDS: APRESOLINE 25 MG PO ×2 (08:30→20:22)
[2024-01-02] MEDS: PROTONIX 40 MG PO (08:30)
[2024-01-02] MEDS: NEPHROCAP 1 CAPSULE PO (08:30)
[2024-01-02] MEDS: ASPIRIN ENTERIC COATED 325 MG PO (08:30)
[2024-01-02] MEDS: HEPARIN 5000 UNITS SC ×2 (08:31→20:21)
[2024-01-02] MEDS: COREG 25 MG PO ×2 (08:31→20:26)
[2024-01-02] MEDS: MIRALAX 17 GRAMS PO (08:32)
[2024-01-02] MEDS: LIDOCAINE 4% PATCH 2 PATCH TOPICAL (08:33)
--- NOTE | 2024-01-02 09:31 | W.PN.ID1 ---
Date of Service
Date of Service: January 02, 2024
Today's Communication
- isolate is MRSE - Continue vancomycin
- TTE - pending
- source of bacteremia most likely the RUE collection or fistula given history of recent declotting, complex collection in the medial upper arm, s epi will not always have external signs of infection on exam
Assessment / Plan
S Epi (Coag neg staph) bacteremia sustained - 12/27-12/29
recent manipulation of RUE HD fistula with stent. Failed LUE fistula 10/12 - few strep in culture
RUE complex collection
Recommendations:
- hgb stable
- 12/30 and 12/31 blood cultures no growth to date - blood cultures may be clearing
- isolate is MRSE - Continue vancomycin
- TTE - pending
- source of bacteremia most likely the RUE collection or fistula given history of recent declotting, complex collection in the medial upper arm, s epi will not always have external signs of infection on exam
- discussed with
- eventual exchange of the tunneled line - bacteremia began before it was placed, not the source but could become colonized
- Will continue to follow clinically
Chief Complaint
-: Bacteremia
Subjective / Review of Systems
afebrile
hypertensive
no erythema or tenderness over either fistula
in good spirits
no erythema or tenderness over the HD cath
Discussed: Dr Hwang, Dr Crowe; left message for Dr Slaughter
Vital Signs / Physical Exam
Vital Signs
Vital Signs
Temp Pulse Resp BP Pulse Ox
98 F 86 12 150/64 100
01/02/24 07:19 01/02/24 07:19 01/02/24 07:19 01/02/24 07:19 01/02/24 07:19
Physical Exam
Constitutional: No Acute Distress and Chronically Ill
Cardiovascular: Regular Rate and S1/S2; Negative Murmur or Rub
Pulmonary: Clear and Symmetric; Negative Wheezes or Rales
Gastrointestinal: Soft, Non Tender, Non Distended and Normal Bowel Sounds
Extremities: Other (both fistula and collection RUE: no erythema, warmth tenderness or drainage; there is fluctuance over the R upper arm collection)
Skin: Warm and Dry; Negative Rash or Jaundice
Lines: HD Cath (no erythema, warmth, tenderness or drainage)
Objective Data
Lab Data
Lab Results
01/01/24 07:21
01/01/24 07:21
Estimated Creat Clear 5 ml/min 01/01/24 07:21
Total Bilirubin 1.0 mg/dl (0.2-1.3) 12/28/23 10:09
AST 31 U/L (14-36) 12/28/23 10:09
ALT 16 U/L (0-35) 12/28/23 10:09
Alkaline Phosphatase 70 U/L (38-126) 12/28/23 10:09
Most recent labs reviewed.
Micro Results:
12/30/23 13:04 Blood Culture - Preliminary
Blood/Venous Staphylococcus epidermidis
Gram Stain - Final
12/29/23 14:09 Blood Culture - Final
Blood/Venous Staphylococcus epidermidis
Gram Stain - Final
12/29/23 14:08 Blood Culture - Final
Blood/Venous Staphylococcus epidermidis
Gram Stain - Final
12/29/23 10:23 Blood Culture - Final
Blood/Venous Staphylococcus epidermidis
Gram Stain - Final
12/28/23 15:07 Blood Culture - Final
Blood/Venous Staphylococcus epidermidis
Gram Stain - Final
01/01/24 07:21 Blood Culture - Preliminary
Blood/Venous No Growth in 24 hours- Final report to follow
12/31/23 06:15 Blood Culture - Preliminary
Blood/Venous No Growth in 48 hours- Final report to follow
12/27/23 21:15 MRSA Screen - Final
Nose Staph aureus MRSA
12/27/23 13:33 Influenza Types A & B ([facility]INIVAS) - Final
Nasal Swab Negative for Influenza A & B, NAAT
Negative results must be combined with clinical observations
and patient history.
Nucleic Acid Amplification test (NAAT)performed on the
[employer] platform.
Care Review
Plan reviewed with: Physician (Dr Jaiden navarro - source of bacteremia)
--- NOTE | 2024-01-02 10:06 | PTCARENOTE ---
Patient received out of bed to chair this am, received Lidocaine patches to mid back for c/o pain . Appetite good at breakfast . Right upper extremity with AV fistula + Bruit +Thrill, some edema noted, encouraged elevationon pillow .
--- NOTE | 2024-01-02 10:57 | PHA.VAN.FU ---
Vancomycin Assessment / Plan
- Assessment
Hemodialysis Schedule: MWF
Last Hemodialysis performed: Mon 12/31
In the past 24 hrs, patient has been: Afebrile
- Dosing Plan
Dosing by Level: Hold off on dosing today
- Monitoring Plan
Random Level: 01/02 prior to HD
- Follow Up
Pharmacy will continue to follow.
Vancomycin Follow UP
- -
Patient Age: 68
Patient Sex: Female
Vancomycin Day #: 5
Indication: Bacteremia
Requesting Provider: Ernie
Pertinent Antimicrobial Allergies:
cefazolin - itching
Height / Weight:
Height 5 ft 4 in
Actual Weight 63.616 kg
Pertinent Past Medical History: ESRD on HD
- Vital Signs / Lab Results
Temp Pulse Resp BP Pulse Ox
98 F 86 12 150/64 100
01/02/24 07:19 01/02/24 07:19 01/02/24 07:19 01/02/24 07:19 01/02/24 07:19
Lab Results - Hematology
01/01/24
07:21
WBC 5.5
Lab Results - Chemistry
01/01/24
07:21
BUN 40 H
Creatinine 8.4 H*
Estimated Creat Clear 5
Microbiology Results
12/30/23 13:04 Blood Culture - Preliminary
Blood/Venous Staphylococcus epidermidis
Gram Stain - Final
12/29/23 14:09 Blood Culture - Final
Blood/Venous Staphylococcus epidermidis
Gram Stain - Final
12/29/23 14:08 Blood Culture - Final
Blood/Venous Staphylococcus epidermidis
Gram Stain - Final
12/29/23 10:23 Blood Culture - Final
Blood/Venous Staphylococcus epidermidis
Gram Stain - Final
12/28/23 15:07 Blood Culture - Final
Blood/Venous Staphylococcus epidermidis
Gram Stain - Final
01/01/24 07:21 Blood Culture - Preliminary
Blood/Venous No Growth in 24 hours- Final report to follow
12/31/23 06:15 Blood Culture - Preliminary
Blood/Venous No Growth in 48 hours- Final report to follow
Therapeutic Drug Monitoring
Random Vancomycin 14.3 ug/ml 01/01/24 07:21
--- NOTE | 2024-01-02 12:38 | W.PN.NEPH.PH ---
Today's Communication / Plan
-
HD tomorrow
Assessment/Plan
-
Impression:
Falls back pain multiple joint arthralgias, weakness failure to thrive
End-stage renal disease Monday schedule
Multidrug-resistant hypertension
Hypoglycemia
Secondary hyperparathyroid
Hyperphosphatemia
Coronary artery disease
History of polycystic kidney disease
Right upper extremity AV graft, previous history of
�� interventions.
Angioplasty in October 2022
Peripheral arterial disease
Plan:
Persistent bacteremia with staph epi, bld cx neg 48hrs
abx per ID, AVG US shows complex fluid collection in upper arm -await for aspiration by IR
vasc follows
TDC was placed during bacteremia hence will need to be exchanged when cleared by ID
strict renal diet and FR for hyponatremia
BP are better than out pt suggest likely dietary restriction not followed out pt
potassium also in normal range, hold LOkelma
HD tomorrow
reviewed with pt in detail that smoking clearly causing many issues, AVG clotting etc..she is motivated to quit but never been successful before
d/w ID
-
-
Date of Service: January 02, 2024
CC / HPI / ROS
-
Chief Complaint:
ESRD on HD
History of Present Illness:
poorly functioning fistula
TDC placed during bacteremia
BP stable, k 3.8
Review of Systems:
feeling well
wants to go home
no cp or sob
no pain at AVG
Labs
-
Labs:
WBC 5.5 10^3/uL (4.8-10.8) 01/01/24 07:21
RBC 2.69 10^6/uL (4.20-5.40) L 01/01/24 07:21
Hgb 8.3 g/dL (12.0-16.0) L 01/01/24 07:21
Hct 25.5 % (37.0-47.0) L 01/01/24 07:21
Plt Count 197 10^3/uL (130-400) 01/01/24 07:21
Sodium 126 mmol/L (135-145) L 01/01/24 07:21
Potassium 3.8 mmol/L (3.5-5.1) 01/01/24 07:21
Chloride 88 mmol/L (98-107) L 01/01/24 07:21
Carbon Dioxide 26 mmol/L (22-30) 01/01/24 07:21
BUN 40 mg/dl (7-17) H 01/01/24 07:21
Creatinine 8.4 mg/dL (0.6-1.0) H* 01/01/24 07:21
eGFR 4.71 01/01/24 07:21
Glucose 81 mg/dl (70-99) 01/01/24 07:21
Calcium 9.2 mg/dl (8.4-10.2) 01/01/24 07:21
Albumin 3.2 g/dl (3.5-5.0) L 12/28/23 10:09
Physical Exam
-
Vital Signs:
Vital Signs
Temp Pulse Resp BP Pulse Ox
98 F 86 12 150/64 100
01/02/24 07:19 01/02/24 07:19 01/02/24 07:19 01/02/24 07:19 01/02/24 07:19
Cardiovascular:: Regular rate and rhythm
Respiratory:: Bilateral: CTA
Lung Excursion:: Normal
Abdomen:: Nontender and Soft
Extremity Edema:: None: Bilateral:
Hwang Catheter: No
Other Findings::
rt UE edema improving, AVG +thril
proximal arm medial aspect swelling noted
--- NOTE | 2024-01-02 13:41 | W.PN.HOSP.TC ---
Today's Communication/Plan
-
continue IV abx
ID believes pt should remain in hospital and continue optimal management of the infection
Assessment / Plan
Assessment / Plan
# Acute lower back pain/bilateral lower extremity weakness secondary to arthritis
diffuse weakness of several etiology, though component of ESRD/ poorly functioning dialysis site/bacteremia
IRAD placed tunneled catheter Input of Dr. Hwang appreciated
-Hip x-ray from of left shows no abnormality
- lumbar x-ray: Markedly limited evaluation as a result of overlying intestinal contrast.
No gross findings to suggest lumbar vertebral compression fracture.
-Chest x-ray shows minimal patchy opacity in the left midlung which could represent subsegmental atelectasis/pneumonia
-CT head shows no acute abnormality
-Levaquin given in ER for pneumonia but did not continue, instead ordered blood cx
Coag Neg Staph, Staph Epidermidis
Source most likely, as per Dr. Klein: 'the RUE collection or fistula given history of recent declotting, complex collection in the medial upper arm, s epi will not always have external signs of infection on exam'
-Procalcitonin 2.79 (but pt with ESRD)
-PT/OT
-Tylenol and lidocaine patch for lower back pain,
Reviewed situation with Dr. Klein
Pt currently on Vancomycin
source of bacteremia in process of attempted identification. TTE ordered
Blood Cx + with Coag Neg Staph. demonstrates 4 positive blood samples
Sample from 12/27 has been finalized Staph epi: Amoxicillin/Potas. Clavulanate <=4/2 R
Ampicillin <=2 R
Clindamycin >4 R
Gentamicin >8 R
Erythromycin >4 R
Levofloxacin >4 R
Oxacillin >2 R
Tetracycline <=4 S
Trimethoprim/Sulfamethoxazole > R
Vancomycin 2 S
# Hypoglycemia resolved
-glu 79-147
ESRD on hemodialysis
History of polycystic kidney disease
-Continue calcitriol
-Continue Lokelma for high potassium
K today 3.8
-Continue sevelamer
-Nephrology consulted for dialysis
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
-Continue Cinacalcet
Chronic anemia of renal disease
-Hemoglobin relatively stable at 8.9
Coronary artery disease
-Continue aspirin
Essential hypertension
-Continue Coreg, hydralazine, valsartan
Hypercholesterolemia
-Continue statin
GERD
-Continue Protonix, sucralfate
Smoker
-Smokes 2 cigarettes a day
Full code
DVT prophylaxis heparin
Renal diet
call placed and updated sister, Margarita 12/30
Anticipated Discharge: > 48 hours
Subjective/Interval History
-
Date of Service: January 02, 2024
Awake, alert, appears comfortable
Objective Data
-
Vital Signs:
Vital Signs
Temp Pulse Resp BP Pulse Ox
98 F 86 12 150/64 100
01/02/24 07:19 01/02/24 07:19 01/02/24 07:19 01/02/24 07:19 01/02/24 07:19
I&O
01/01/24 01/02/24 01/03/24
06:59 06:59 06:59
Intake Total 3940 / 3940 960 / 960
Output Total 200 / 200
Balance 3740 / 3740 960 / 960
Review of Systems
-
History Source: Patient and Coordinated Provider
Constitutional: Denies Fever
EENT: Reports No Symptoms Reported
Respiratory: Reports No Symptoms; Denies Cough or Trouble Breathing
Cardiac: Reports No Symptoms; Denies Chest Pain or Palpitations
Abdomen/GI: Reports No Symptoms
Genitourinary: Reports No Symptoms
Neuro: Reports No Symptoms
Physical Exam
-
General: Well Developed, Well Nourished and No Apparent Distress
HEENT: Normocephalic, Atraumatic and Moist Mucous Membranes
Respiratory: Clear to Auscultation; Negative Wheezes, Rales or Rhonchi
Cardiac: Regular Rhythm and S1/S2
GI: Soft, Nontender and Nondistended
Musculoskeletal: No Clubbing, No Cyanosis and No Edema
Neuro: Awake, Alert and Oriented
--- NOTE | 2024-01-02 15:32 | W.PN.UPDATE ---
Update Note
Progress Note Update
- R arm complex fluid collection aspirated. 5 mL dark bloody fluid obtained c/w hematoma.
- Samples sent to lab for culture.
--- NOTE | 2024-01-02 16:07 | PTCARENOTE ---
Patient returned [facility] IR at 1605, awake alert oriented. Small 2x2 bandaid noted on right bicep area, no drainage. Denies any pain or discomfort.
[2024-01-02] MEDS: LIPITOR 10 MG PO (21:30)
[2024-01-02] MEDS: DIOVAN 320 MG PO (21:30)
[2024-01-03] MEDS: DILAUDID 0.25 MG IV (03:09)
[2024-01-03] MEDS: CARAFATE 1 GRAM PO ×2 (05:40→17:16)
[2024-01-03] MEDS: RENVELA 1600 MG PO ×2 (05:40→17:16)
[2024-01-03 06:00] VITALS: BMI 24.3
[2024-01-03 07:05] VITALS: BP 134/86
--- NOTE | 2024-01-03 08:47 | W.PN.VS ---
Addendum entered and electronically signed by Ronen Proctor MD 01/03/24 13:37:
Seen and examined with JEREMY Cha. Agree with findings as noted below. The old hematoma/fluid collection area is soft. No erythema. The arm is soft. No significant tenderness. Excellent thrill in the graft. Discussed via [place] text with ID.
They reported to me the fluid drained by IR has Gram positive bacteria growing. Could this be a contamination? Regardless if no other source need to consider this is a source. Agree with ID evaluation. This has been a chronic hematoma from a
prior puncture for hemodialysis. Hopefully does not involve the AV graft. Would plan at this point washout with possible graft excision, but hopefully graft preservation as she does not have any other great long-term dialysis access options (would
likely require a leg graft or fistula). Will potentially plan tomorrow washout.
Addendum entered and electronically signed by GAEL Oscar 01/03/24 11:12:
Given IR culture positive will continue to utilize HD tunneled line
Addendum entered and electronically signed by GAEL Oscar 01/03/24 11:10:
IR aspirated fluid preliminary reports with gram positive cocci, will scheduled patient for exploration and washout of RUE, would favor attempting to salvage HD graft if possible as patient has limited AV creation sites. NPO at midnight.
Original Note:
Today's Communication / Plan
-
Patient seen and examined at bedside with Dr. Ronen Proctor, below plan reviewed with attending
Assessment/Plan
-
Assessment: 68-year-old female with end-stage renal disease and right arm edema secondary to the strong flow volumes through the graft following recent declot in the setting of a chronic central venous occlusion, no evidence to suggest graft
infection. Status post IR aspiration of right upper extremity collection that is consistent with chronic hematoma.
Plan:
Would recommend utilization of right extremity AV graft for HD
Can attempt arm compression and elevation to help with current right upper extremity edema
She will likely benefit from an attempt at crossing the central venous occlusion along with additional endovascular intervention ([employer]/stent). However, timing of procedure will be determined and on resolution of bacteremia.
Subjective Data
-
Date of Service: January 03, 2024
Patient seen and examined at bedside, offers no complaints. Denies right upper extremity pain, does endorse continued edema.
Objective Data
-
Vital Signs
Temp Pulse Resp BP Pulse Ox
98.7 F 64 16 134/86 96
01/03/24 07:05 01/03/24 07:05 01/03/24 07:05 01/03/24 07:05 01/03/24 07:05
Intake and Output
01/02/24 01/03/24 01/04/24
06:59 06:59 06:59
Intake Total 960 / 960 840 / 840
Balance 960 / 960 840 / 840
Intake:
Oral fluids 960 / 960 840 / 840
Other:
Number of approximated MODERATE 1
amounts of urine
Lab Results
01/01/24 07:21
01/01/24 07:21
Calcium 9.2 mg/dl (8.4-10.2) 01/01/24 07:21
Total Bilirubin 1.0 mg/dl (0.2-1.3) 12/28/23 10:09
AST 31 U/L (14-36) 12/28/23 10:09
ALT 16 U/L (0-35) 12/28/23 10:09
Alkaline Phosphatase 70 U/L (38-126) 12/28/23 10:09
Total Protein 6.4 g/dl (6.3-8.2) 12/28/23 10:09
Albumin 3.2 g/dl (3.5-5.0) L 12/28/23 10:09
Physical Exam
-
General: NAD, in bed resting comfortably
Pulm: Reg effort. Room air. =
Abd: Nondistended and nontender
RUE: +1 right upper extremity edema, AV graft with positive thrill, easily palpable, right hand warm, motor and sensation intact
--- NOTE | 2024-01-03 09:33 | PHA.VAN.FU ---
Vancomycin Assessment / Plan
- Assessment
Hemodialysis Schedule: MWF
Last Hemodialysis performed: MonDecember 31
WBC's are: WNL
In the past 24 hrs, patient has been: Afebrile
- Assessment - Therapeutic Drug Monitoring
Random Level: pre-HD = 14
- Dosing Plan
Dosing by Level: Re-dose today (Vanc 500mg)
- Monitoring Plan
No level(s) ordered at this time: consider level prior to next HD
- Follow Up
Pharmacy will continue to follow.
Vancomycin Follow UP
- -
Patient Age: 68
Patient Sex: Female
Vancomycin Day #: 6
Indication: Bacteremia
Requesting Provider: Ernie
Pertinent Antimicrobial Allergies:
cefazolin - itching
Height / Weight:
Height 5 ft 4 in
Actual Weight 64.212 kg
Pertinent Past Medical History: ESRD on HD
- Vital Signs / Lab Results
Temp Pulse Resp BP Pulse Ox
98.7 F 64 16 134/86 96
01/03/24 07:05 01/03/24 07:05 01/03/24 07:05 01/03/24 07:05 01/03/24 07:05
Lab Results - Hematology
01/01/24
07:21
WBC 5.5
Lab Results - Chemistry
01/01/24
07:21
BUN 40 H
Creatinine 8.4 H*
Estimated Creat Clear 5
Microbiology Results
01/02/24 15:37 Body Fluid Culture - Preliminary
Fluid Gram Stain - Preliminary
01/01/24 07:21 Blood Culture - Preliminary
Blood/Venous Staphylococcus epidermidis
Gram Stain - Preliminary
01/02/24 15:31 Anaerobic Culture - Preliminary
Fluid
12/31/23 06:15 Blood Culture - Preliminary
Blood/Venous No Growth in 72 hours- Final report to follow
12/30/23 13:04 Blood Culture - Preliminary
Blood/Venous Staphylococcus epidermidis
Gram Stain - Final
12/29/23 14:09 Blood Culture - Final
Blood/Venous Staphylococcus epidermidis
Gram Stain - Final
12/29/23 14:08 Blood Culture - Final
Blood/Venous Staphylococcus epidermidis
Gram Stain - Final
12/29/23 10:23 Blood Culture - Final
Blood/Venous Staphylococcus epidermidis
Gram Stain - Final
12/28/23 15:07 Blood Culture - Final
Blood/Venous Staphylococcus epidermidis
Gram Stain - Final
Therapeutic Drug Monitoring
Random Vancomycin 14.0 ug/ml 01/03/24 08:15
[2024-01-03] MEDS: MIRALAX PO (09:34)
[2024-01-03] MEDS: SENSIPAR 60 MG PO (09:36)
[2024-01-03] MEDS: PROTONIX 40 MG PO (09:37)
[2024-01-03] MEDS: NEPHROCAP 1 CAPSULE PO (09:37)
[2024-01-03] MEDS: APRESOLINE 25 MG PO ×2 (09:37→20:48)
[2024-01-03] MEDS: COREG 25 MG PO ×2 (09:37→20:49)
[2024-01-03] MEDS: ROCALTROL 0.5 MCG PO (09:37)
[2024-01-03] MEDS: HEPARIN 5000 UNITS SC ×2 (09:37→20:44)
[2024-01-03] MEDS: ASPIRIN ENTERIC COATED 325 MG PO (09:37)
[2024-01-03] MEDS: LIDOCAINE 4% PATCH 2 PATCH TOPICAL (09:50)
--- NOTE | 2024-01-03 10:19 | PTCARENOTE ---
Pt complaining of nausea, made aware. Pt drinking tea and eating sariah crackers for breakfast and reports feeling better. No PRN medications ordered/administered. Pt with no other complaints at this time.
[2024-01-03] MEDS: RENVELA PO (12:58)
[2024-01-03] MEDS: HEPARIN 500 UNITS IV ×2 (13:10→14:31)
[2024-01-03 13:18] LABS: Hematocrit 23.4 % (37.0-47.0); Hemoglobin 7.6 g/dL (12.0-16.0); Mean Corp Hgb Conc. 32.5 g/dL (33.0-37.0); Mean Corpuscular Hgb 30.9 pg (27.0-31.0); Mean Corpuscular Volume 95.1 fL (81.0-99.0); Platelet Count 211 10^3/uL (130-400); Red Blood Cell Count 2.46 10^6/uL (4.20-5.40); Red Cell Dist. Width 16.1 % (11.5-14.5); White Blood Cell Count 5.7 10^3/uL (4.8-10.8)
[2024-01-03 13:46] LABS: Blood Urea Nitrogen 32 mg/dl (7-17); Calcium 8.7 mg/dl (8.4-10.2); Carbon Dioxide 29 mmol/L (22-30); Estimated Creatinine Clearance 7 ml/min; Glucose 128 mg/dl (70-99); Potassium 3.7 mmol/L (3.5-5.1); Sodium 129 mmol/L (135-145); eGFR 5.97
--- NOTE | 2024-01-03 13:51 | W.PN.HOSP.TC ---
Today's Communication/Plan
-
await vascular intervention/washout
Zofran prn
Assessment / Plan
Assessment / Plan
# Acute lower back pain/bilateral lower extremity weakness secondary to arthritis
diffuse weakness of several etiology, though component of ESRD/ poorly functioning dialysis site/bacteremia
IRAD placed tunneled catheter Input of Dr. Hwang appreciated
-Hip x-ray from of left shows no abnormality
- lumbar x-ray: Markedly limited evaluation as a result of overlying intestinal contrast.
No gross findings to suggest lumbar vertebral compression fracture.
-Chest x-ray shows minimal patchy opacity in the left midlung which could represent subsegmental atelectasis/pneumonia
-CT head shows no acute abnormality
-Levaquin given in ER for pneumonia but did not continue, instead ordered blood cx
Coag Neg Staph, Staph Epidermidis
Source most likely, as per Dr. Klein: 'the RUE collection or fistula given history of recent declotting, complex collection in the medial upper arm, s epi will not always have external signs of infection on exam'
-Procalcitonin 2.79 (but pt with ESRD)
-PT/OT
-Tylenol and lidocaine patch for lower back pain,
Reviewed situation with Dr. Klein
c/o nausea
will order prn Zofran
Pt currently on Vancomycin
source of bacteremia in process of attempted identification. TTE ordered
Blood Cx + with Coag Neg Staph. demonstrates 4 positive blood samples
Sample from 12/27 has been finalized Staph epi: Amoxicillin/Potas. Clavulanate <=4/2 R
Ampicillin <=2 R
Clindamycin >4 R
Gentamicin >8 R
Erythromycin >4 R
Levofloxacin >4 R
Oxacillin >2 R
Tetracycline <=4 S
Trimethoprim/Sulfamethoxazole >2/38 R
Vancomycin 2 S
# Hypoglycemia resolved
-glu 79-147
ESRD on hemodialysis
History of polycystic kidney disease
-Continue calcitriol
-Continue Lokelma for high potassium
K today 3.8
-Continue sevelamer
-Nephrology consulted for dialysis
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
-Continue Cinacalcet
Chronic anemia of renal disease
-Hemoglobin relatively stable at 8.9
Coronary artery disease
-Continue aspirin
Essential hypertension
-Continue Coreg, hydralazine, valsartan
Hypercholesterolemia
-Continue statin
GERD
-Continue Protonix, sucralfate
Smoker
-Smokes 2 cigarettes a day
Full code
DVT prophylaxis heparin
Renal diet
updated sisterMargarita 01/02 in room
Anticipated Discharge: > 48 hours
Subjective/Interval History
-
Date of Service: January 03, 2024
Met with sister in room
Later pt c/o nausea
Objective Data
-
Labs:
Laboratory Results
01/03/24 01/03/24
12:52 12:53
WBC 5.7
Hgb 7.6 L
Hct 23.4 L
Plt Count 211
Sodium 129 L
Potassium 3.7
Chloride Pending
Carbon Dioxide 29
BUN 32 H
Creatinine 6.9 H*
Glucose 128 H
Calcium 8.7
Vital Signs:
Vital Signs
Temp Pulse Resp BP Pulse Ox
98.7 F 64 16 134/86 96
01/03/24 07:05 01/03/24 07:05 01/03/24 07:05 01/03/24 07:05 01/03/24 07:05
I&O
01/02/24 01/03/24 01/04/24
06:59 06:59 06:59
Intake Total 960 / 960 840 / 840
Balance 960 / 960 840 / 840
Review of Systems
-
History Source: Patient and Coordinated Provider
Constitutional: Denies Fever
EENT: Reports No Symptoms Reported
Respiratory: Reports No Symptoms; Denies Cough or Trouble Breathing
Cardiac: Reports No Symptoms; Denies Chest Pain or Palpitations
Abdomen/GI: Reports No Symptoms
Genitourinary: Reports No Symptoms
Neuro: Reports No Symptoms
Physical Exam
-
General: Well Developed, Well Nourished and No Apparent Distress
HEENT: Normocephalic, Atraumatic and Moist Mucous Membranes
Respiratory: Clear to Auscultation; Negative Wheezes, Rales or Rhonchi
Cardiac: Regular Rhythm and S1/S2
GI: Soft, Nontender and Nondistended
Musculoskeletal: No Clubbing, No Cyanosis and No Edema
Neuro: Awake, Alert and Oriented
[2024-01-03 13:55] LABS: Chloride 91 mmol/L (98-107)
[2024-01-03] MEDS: FLEXBUMIN 25% FOR HEMODIALYSIS 12.5 GRAMS IV ×2 (14:15→14:59)
[2024-01-03] MEDS: RETACRIT 10000 UNITS IV (14:32)
[2024-01-03] MEDS: MANNITOL 12.5 GRAMS IV (14:59)
[2024-01-03] MEDS: TYLENOL 650 MG PO ×2 (15:03→21:16)
--- NOTE | 2024-01-03 15:03 | W.PN.ID1 ---
Date of Service
Date of Service: January 03, 2024
Today's Communication
- source of bacteremia most likely the RUE collection and/or fistula given history of recent declotting, complex collection in the medial upper arm with gram stain of fluid from collection positive, s epi will not always have external signs of
infection on exam
- discussed with Dr Proctor
- eventual exchange of the tunneled line - bacteremia began before it was placed, not the source but could become colonized
Assessment / Plan
S Epi (Coag neg staph) bacteremia sustained - 12/27-12/21
recent manipulation of RUE HD fistula with stent. Failed LUE fistula 10/12 - few strep in culture
RUE complex collection
Recommendations:
- without leukocytosis, hyponatremia ongoing,
- 12/31 blood cultures now also positive, bacteremia sustained 12/27-12/31 suggests uncontrolled source
- isolate is MRSE - Continue vancomycin
- TTE - now with moderate , no vegetations
- source of bacteremia most likely the RUE collection and/or fistula given history of recent declotting, complex collection in the medial upper arm with gram stain of fluid from collection positive, s epi will not always have external signs of
infection on exam
- discussed with Dr Proctor
- eventual exchange of the tunneled line - bacteremia began before it was placed, not the source but could become colonized
- Will continue to follow clinically
Chief Complaint
-: Bacteremia
Subjective / Review of Systems
afebrile
bp stable
spoke with Dr Proctor today
Vital Signs / Physical Exam
Vital Signs
Vital Signs
Temp Pulse Resp BP Pulse Ox
98.7 F 64 16 134/86 96
01/03/24 07:05 01/03/24 07:05 01/03/24 07:05 01/03/24 07:05 01/03/24 07:05
Physical Exam
Constitutional: No Acute Distress and Chronically Ill
Cardiovascular: Regular Rate
Pulmonary: Symmetric and Non Labored
Gastrointestinal: Non Distended
Skin: Dry; Negative Rash or Jaundice
Neurological: Negative Awake
Objective Data
Lab Data
Lab Results
01/03/24 12:52
01/03/24 12:53
Estimated Creat Clear 7 ml/min 01/03/24 12:53
Total Bilirubin 1.0 mg/dl (0.2-1.3) 12/28/23 10:09
AST 31 U/L (14-36) 12/28/23 10:09
ALT 16 U/L (0-35) 12/28/23 10:09
Alkaline Phosphatase 70 U/L (38-126) 12/28/23 10:09
Most recent labs reviewed.
Micro Results:
12/30/23 13:04 Blood Culture - Final
Blood/Venous Staphylococcus epidermidis
Gram Stain - Final
01/02/24 09:26 Blood Culture - Preliminary
Blood/Venous No Growth in 24 hours- Final report to follow
01/02/24 15:37 Body Fluid Culture - Preliminary
Fluid Gram Stain - Preliminary
01/01/24 07:21 Blood Culture - Preliminary
Blood/Venous Staphylococcus epidermidis
Gram Stain - Preliminary
01/03/24 08:15 Blood Culture - Pending
Blood/Venous
01/02/24 15:31 Anaerobic Culture - Preliminary
Fluid
12/31/23 06:15 Blood Culture - Preliminary
Blood/Venous No Growth in 72 hours- Final report to follow
12/29/23 14:09 Blood Culture - Final
Blood/Venous Staphylococcus epidermidis
Gram Stain - Final
12/29/23 14:08 Blood Culture - Final
Blood/Venous Staphylococcus epidermidis
Gram Stain - Final
12/29/23 10:23 Blood Culture - Final
Blood/Venous Staphylococcus epidermidis
Gram Stain - Final
12/28/23 15:07 Blood Culture - Final
Blood/Venous Staphylococcus epidermidis
Gram Stain - Final
12/27/23 21:15 MRSA Screen - Final
Nose Staph aureus MRSA
12/27/23 13:33 Influenza Types A & B (SRINIVAS) - Final
Nasal Swab Negative for Influenza A & B, NAAT
Negative results must be combined with clinical observations
and patient history.
Nucleic Acid Amplification test (NAAT)performed on the
[employer] platform.
Care Review
Plan reviewed with: Physician (Dr Proctor - positive gram stain from the r arm collection)
--- NOTE | 2024-01-03 15:04 | W.PN.NEPH.HD ---
Assessment
-
- resting comfortably on HD
- plan for intervention of graft tomorrow with vascular due to aspiration + for staph epi
Progress Note - Hemodialysis
-
Date of Service: January 03, 2024
Duration: 30 minutes and 3 hours
Potassium Bath: 3
Calcium Bath: 2.5
Opti-Dialyzer: 160
Ultrafiltration: Other
Blood Flow: 400
Dialysate Flow: 600
EPO: 10K
[2024-01-03] MEDS: VANCOCIN HCL 500 MG 100 IV (15:33)
[2024-01-03 16:00] VITALS: BP 135/57
[2024-01-03] MEDS: HEPARIN 4300 UNITS INTRACATH (16:43)
[2024-01-03] MEDS: LIPITOR 10 MG PO (21:16)
[2024-01-03] MEDS: DIOVAN 320 MG PO (22:31)
[2024-01-03 23:10] VITALS: BP 140/53
[2024-01-04] VITALS (12 sets, daily range): BP systolic 148–180; BP diastolic 63–75; PULSE 80; BMI 23.7
[2024-01-04] MEDS: CARAFATE 1 GRAM PO (05:24)
[2024-01-04] MEDS: RENVELA 1600 MG PO (05:24)
[2024-01-04] MEDS: PROTONIX 40 MG PO (07:44)
[2024-01-04] MEDS: HEPARIN 5000 UNITS SC ×2 (07:44→19:59)
[2024-01-04] MEDS: COREG 25 MG PO ×2 (07:44→19:59)
[2024-01-04] MEDS: NEPHROCAP 1 CAPSULE PO (07:44)
[2024-01-04] MEDS: ASPIRIN ENTERIC COATED 325 MG PO (07:44)
[2024-01-04] MEDS: APRESOLINE 25 MG PO ×2 (07:44→19:57)
[2024-01-04] MEDS: MIRALAX PO (08:02)
--- NOTE | 2024-01-04 08:53 | PHA.VAN.FU ---
Vancomycin Assessment / Plan
- Assessment
Hemodialysis Schedule: MWF
Last Hemodialysis performed: 01/02
- Dosing Plan
Dosing by Level: Hold off on dosing today
- Monitoring Plan
Random Level: 01/04 prior to HD
- Follow Up
Pharmacy will continue to follow.
Vancomycin Follow UP
- -
Patient Age: 68
Patient Sex: Female
Vancomycin Day #: 7
Indication: Bacteremia
Requesting Provider: Dr. Klein
Pertinent Antimicrobial Allergies:
cefazolin - itching
Height / Weight:
Height 5 ft 4 in
Actual Weight 62.681 kg
Pertinent Past Medical History: ESRD on HD
- Vital Signs / Lab Results
Temp Pulse Resp BP Pulse Ox
98.4 F 74 18 162/69 99
01/03/24 23:10 01/03/24 23:10 01/03/24 23:10 01/04/24 07:44 01/03/24 23:10
Lab Results - Hematology
01/03/24
12:52
WBC 5.7
Lab Results - Chemistry
01/01/24 01/03/24
07:21 12:53
BUN 40 H 32 H
Creatinine 8.4 H* 6.9 H*
Estimated Creat Clear 5 7
Microbiology Results
01/02/24 15:31 Anaerobic Culture - Preliminary
Fluid
01/02/24 15:37 Body Fluid Culture - Preliminary
Fluid Coagulase neg. staphylococcus
Gram Stain - Preliminary
12/31/23 06:15 Blood Culture - Preliminary
Blood/Venous No Growth in 4 days- Final report to follow
12/30/23 13:04 Blood Culture - Final
Blood/Venous Staphylococcus epidermidis
Gram Stain - Final
01/02/24 09:26 Blood Culture - Preliminary
Blood/Venous No Growth in 24 hours- Final report to follow
01/01/24 07:21 Blood Culture - Preliminary
Blood/Venous Staphylococcus epidermidis
Gram Stain - Preliminary
12/29/23 14:09 Blood Culture - Final
Blood/Venous Staphylococcus epidermidis
Gram Stain - Final
12/29/23 14:08 Blood Culture - Final
Blood/Venous Staphylococcus epidermidis
Gram Stain - Final
12/29/23 10:23 Blood Culture - Final
Blood/Venous Staphylococcus epidermidis
Gram Stain - Final
12/28/23 15:07 Blood Culture - Final
Blood/Venous Staphylococcus epidermidis
Gram Stain - Final
Therapeutic Drug Monitoring
Random Vancomycin 14.0 ug/ml 01/03/24 08:15
[2024-01-04 08:59] LABS: Hematocrit 23.9 % (37.0-47.0); Hemoglobin 7.6 g/dL (12.0-16.0); Mean Corp Hgb Conc. 31.8 g/dL (33.0-37.0); Mean Corpuscular Hgb 30.9 pg (27.0-31.0); Mean Corpuscular Volume 97.2 fL (81.0-99.0); Mean Platelet Volume 9.7 fL (7.4-10.4); Platelet Count 201 10^3/uL (130-400); Red Blood Cell Count 2.46 10^6/uL (4.20-5.40); Red Cell Dist. Width 16.3 % (11.5-14.5)
[2024-01-04 09:09] LABS: Blood Urea Nitrogen 16 mg/dl (7-17); Calcium 8.8 mg/dl (8.4-10.2); Carbon Dioxide 29 mmol/L (22-30); Chloride 97 mmol/L (98-107); Estimated Creatinine Clearance 10 ml/min; Glucose 87 mg/dl (70-99); Potassium 3.9 mmol/L (3.5-5.1); Sodium 131 mmol/L (135-145); eGFR 10.24
[2024-01-04] MEDS: RENVELA PO ×2 (12:32→17:41)
--- NOTE | 2024-01-04 12:33 | W.PN.UPDATE ---
Update Note
Progress Note Update
Seen and examined. Stable right upper extremity chronic old hematoma in the proximal upper arm. No tenderness or redness. Discussed plan for washout based on infectious disease recommendations and culture findings. She understands all and wishes
to proceed. I did discuss the possibility of needing graft excision completely if concern for graft infection. She understands.
--- NOTE | 2024-01-04 13:35 | W.PN.NEPH.PH ---
Today's Communication / Plan
-
- washout with vasc today
Assessment/Plan
-
Impression:
Falls back pain multiple joint arthralgias, weakness failure to thrive
End-stage renal disease Monday schedule
Multidrug-resistant hypertension
Hypoglycemia
Secondary hyperparathyroid
Hyperphosphatemia
Coronary artery disease
History of polycystic kidney disease
Right upper extremity AV graft, previous history of
�� interventions.
Angioplasty in October 2022
Peripheral arterial disease
Plan:
Persistent bacteremia with staph epi, bld cx neg 48hrs
abx per ID, AVG US shows complex fluid collection in upper arm- aspiration +
vasc planning for washout +/- graft excision
TDC was placed during bacteremia hence will need to be exchanged when cleared by ID
strict renal diet and FR for hyponatremia
BP are better than out pt suggest likely dietary restriction not followed out pt
potassium also in normal range, hold LOkelma
HD tomorrow
reviewed with pt in detail that smoking clearly causing many issues, AVG clotting etc..she is motivated to quit but never been successful before
-
-
Date of Service: January 04, 2024
CC / HPI / ROS
-
Chief Complaint:
ESRD on HD
History of Present Illness:
poorly functioning fistula
TDC placed during bacteremia
BP stable, k 3.8
Review of Systems:
feeling well
wants to go home
no cp or sob
awaiting washout
Labs
-
Labs:
WBC 5.0 10^3/uL (4.8-10.8) 01/04/24 08:45
RBC 2.46 10^6/uL (4.20-5.40) L 01/04/24 08:45
Hgb 7.6 g/dL (12.0-16.0) L 01/04/24 08:45
Hct 23.9 % (37.0-47.0) L 01/04/24 08:45
Plt Count 201 10^3/uL (130-400) 01/04/24 08:45
Sodium 131 mmol/L (135-145) L 01/04/24 08:45
Potassium 3.9 mmol/L (3.5-5.1) 01/04/24 08:45
Chloride 97 mmol/L (98-107) L 01/04/24 08:45
Carbon Dioxide 29 mmol/L (22-30) 01/04/24 08:45
BUN 16 mg/dl (7-17) 01/04/24 08:45
Creatinine 4.4 mg/dL (0.6-1.0) H* 01/04/24 08:45
eGFR 10.24 01/04/24 08:45
Glucose 87 mg/dl (70-99) 01/04/24 08:45
Calcium 8.8 mg/dl (8.4-10.2) 01/04/24 08:45
Albumin 3.2 g/dl (3.5-5.0) L 12/28/23 10:09
Physical Exam
-
Vital Signs:
Vital Signs
Temp Pulse Resp BP Pulse Ox
98.3 F 90 20 162/69 99
01/04/24 08:00 01/04/24 08:00 01/04/24 08:00 01/04/24 08:00 01/04/24 08:00
Cardiovascular:: Regular rate and rhythm
Respiratory:: Bilateral: CTA
Lung Excursion:: Normal
Abdomen:: Nontender and Soft
Bowel Sounds:: Normal
Extremity Edema:: None: Bilateral:
Hwang Catheter: No
--- NOTE | 2024-01-04 14:57 | CM ---
Patient seen bedside.
Per patient plan remains home with [facility] and outpatient HD.
family will transport.
Plan: home with [facility] when stable.
--- NOTE | 2024-01-04 15:31 | W.PN.ID1 ---
Date of Service
Date of Service: January 04, 2024
Today's Communication
body fluid from the abscess has also grown CONS (ie s epi) - it is infected; patient is for the OR later today
Assessment / Plan
S Epi (Coag neg staph) bacteremia sustained - 12/27-12/31
recent manipulation of RUE HD fistula with stent. Failed LUE fistula 10/12 - few strep in culture
RUE complex collection
Recommendations:
- without leukocytosis, hyponatremia ongoing
- body fluid from the abscess has also grown CONS (ie s epi) - it is infected; patient is for the OR later today
- isolate is MRSE - Continue vancomycin
- TTE - now with moderate , no vegetations
- eventual exchange of the tunneled line - bacteremia began before it was placed, not the source but could become colonized
- Will continue to follow clinically
Chief Complaint
-: Bacteremia
Subjective / Review of Systems
afebrile
bp stable
without leukocytosis
no tenderness over the graft of fluid collection
Vital Signs / Physical Exam
Vital Signs
Vital Signs
Temp Pulse Resp BP Pulse Ox
98.3 F 90 20 166/74 99
01/04/24 08:00 01/04/24 08:00 01/04/24 08:00 01/04/24 15:20 01/04/24 08:00
Physical Exam
Constitutional: No Acute Distress
Cardiovascular: Regular Rate and S1/S2; Negative Murmur or Rub
Pulmonary: Clear and Symmetric; Negative Wheezes or Rales
Gastrointestinal: Soft, Non Tender, Non Distended and Normal Bowel Sounds
Extremities: Other (R arm collection - no erythema, warmth tenderness or drainage; R arm fistula - no erythema, warmth tenderness or drainage)
Skin: Warm and Dry; Negative Rash or Jaundice
Lines: PIV and HD Cath
Objective Data
Lab Data
Lab Results
01/04/24 08:45
01/04/24 08:45
Estimated Creat Clear 10 ml/min 01/04/24 08:45
Total Bilirubin 1.0 mg/dl (0.2-1.3) 12/28/23 10:09
AST 31 U/L (14-36) 12/28/23 10:09
ALT 16 U/L (0-35) 12/28/23 10:09
Alkaline Phosphatase 70 U/L (38-126) 12/28/23 10:09
Most recent labs reviewed.
Micro Results:
01/04/24 15:01 Blood Culture - Pending
Blood/Venous
01/02/24 09:26 Blood Culture - Preliminary
Blood/Venous No Growth in 48 hours- Final report to follow
01/03/24 08:15 Blood Culture - Preliminary
Blood/Venous No Growth in 24 hours- Final report to follow
01/02/24 15:31 Anaerobic Culture - Preliminary
Fluid
01/02/24 15:37 Body Fluid Culture - Preliminary
Fluid Coagulase neg. staphylococcus
Gram Stain - Preliminary
12/31/23 06:15 Blood Culture - Preliminary
Blood/Venous No Growth in 4 days- Final report to follow
12/30/23 13:04 Blood Culture - Final
Blood/Venous Staphylococcus epidermidis
Gram Stain - Final
01/01/24 07:21 Blood Culture - Preliminary
Blood/Venous Staphylococcus epidermidis
Gram Stain - Preliminary
12/29/23 14:09 Blood Culture - Final
Blood/Venous Staphylococcus epidermidis
Gram Stain - Final
12/29/23 14:08 Blood Culture - Final
Blood/Venous Staphylococcus epidermidis
Gram Stain - Final
12/29/23 10:23 Blood Culture - Final
Blood/Venous Staphylococcus epidermidis
Gram Stain - Final
12/28/23 15:07 Blood Culture - Final
Blood/Venous Staphylococcus epidermidis
Gram Stain - Final
12/27/23 21:15 MRSA Screen - Final
Nose Staph aureus MRSA
12/27/23 13:33 Influenza Types A & B (SRINIVAS) - Final
Nasal Swab Negative for Influenza A & B, NAAT
Negative results must be combined with clinical observations
and patient history.
Nucleic Acid Amplification test (NAAT)performed on the
[employer] platform.
Care Review
Plan reviewed with: Physician (Dr Proctor - source of bacteremia)
[2024-01-04] MEDS: PERIDEX 0.12% ORAL RINSE 15 ML PO (16:19)
[2024-01-04] MEDS: BACTROBAN 2% OINTMENT 1 APPLIC NASAL (16:19)
[2024-01-04] MEDS: CARAFATE PO (17:41)
--- NOTE | 2024-01-04 17:49 | W.PN.HOSP.TC ---
Today's Communication/Plan
-
OR for collection washout
Continue antibiotics
Assessment / Plan
Assessment / Plan
Impression:
Staff AP (coag negative staph) bacteremia 12/27 - 12/31
Right AV fistula infected hematoma/abscess with concern for possible source
Back pain status post fall. CT scan consistent with compression fracture
Conditions prior to admit
End-stage renal disease on hemodialysis Monday.
PKD
Right upper extremity AV graft requiring angioplasty 11/14
Essential hypertension, multidrug-resistant
CAD.
PAD
Anemia of chronic disease
Plan:
Staph epi bacteremia.
Aspirate culture from right upper extremity hematoma positive for staph epi confirming infected fluid collection as well as source of bacteremia.
Vascular surgery consultation with plan for washout on 01/03
Echocardiogram 01/01 preserved LVEF with no evidence of vegetation. Mild MR, moderate AAS, mild AI. Pulmonary hypertension with PASP 51 mmHg
Continue vancomycin
Infectious disease input appreciated
End-stage renal disease
HD as per schedule
Patient has tunneled catheter placed prior to bacteremia clearance and may need exchange given possibility of seeding.
-Continue calcitriol
-Continue Lokelma for high potassium
� � K today 3.8
-Continue sevelamer
-Nephrology consulted for dialysis
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
-Continue Cinacalcet
Chronic anemia of renal disease
-Hemoglobin relatively stable at 8.9
Coronary artery disease
-Continue aspirin
Essential hypertension
-Continue Coreg, hydralazine, valsartan
Hypercholesterolemia
-Continue statin
GERD
-Continue Protonix, sucralfate
Smoker
-Smokes 2 cigarettes a day
Full code
DVT prophylaxis heparin
Renal diet
Episode of hypoglycemia
Resolved.
Anticipated Discharge: > 48 hours
Subjective/Interval History
-
Date of Service: January 04, 2024
Objective Data
-
Labs:
Laboratory Results
01/04/24
08:45
WBC 5.0
Hgb 7.6 L
Hct 23.9 L
Plt Count 201
Sodium 131 L
Potassium 3.9
Chloride 97 L
Carbon Dioxide 29
BUN 16
Creatinine 4.4 H*
Glucose 87
Calcium 8.8
Vital Signs:
Vital Signs
Temp Pulse Resp BP Pulse Ox
98.8 F 74 12 166/74 100
01/04/24 14:50 01/04/24 14:50 01/04/24 14:50 01/04/24 15:20 01/04/24 14:50
I&O
01/03/24 01/04/24 01/05/24
06:59 06:59 06:59
Intake Total 840 / 840 220 / 220
Balance 840 / 840 220 / 220
Physical Exam
-
General: Well Developed and No Apparent Distress
HEENT: Normocephalic, Atraumatic and Moist Mucous Membranes
Respiratory: Clear to Auscultation
Cardiac: Regular Rhythm and S1/S2; Negative Murmur, Rub or Gallop
GI: Soft, Nontender, Nondistended and Normal Bowel Sounds; Negative Organomegaly
Rectal: Deferred by Provider
Musculoskeletal: No Clubbing, No Cyanosis and No Edema
Skin: Negative Rash
Neuro: Nonfocal/Grossly Intact
--- NOTE | 2024-01-04 18:09 | W.PN.UPDATE ---
Update Note
Progress Note Update
Discussed with Dr. Klein. Based on cultures - concern for graft infection. Discussed with her will plan washout infected hematoma, and assess graft (if exposed). Ideally I would favor maintaining graft given limited dialysis options if needs
to be excised. I did, however, clearly discuss with patient the possibility of graft excision, in addition to washout infection.
--- NOTE | 2024-01-04 18:52 | W.SUR.POST ---
Surgical Immediate Post Op
Note
Pre Op Diagnosis: Hematoma
Post Op Diagnosis: Same
Procedure Performed: Right upper extremity hematoma washout
Primary Surgeon: Hitesh
Assist: Ravi MAYO
Anesthesia: LMA
Estimated Blood Loss: 5 cc
Fluids: See anesthesia flowsheet
Drains/Shunts: None
Specimens/Cultures: Culture swabs sent
Doppler/Duplex/Angio (Y/N): N
Complications: None
Operative Findings: Successful hematoma evacuation
[2024-01-04] MEDS: SUBLIMAZE 25 MCG IV (19:27)
[2024-01-04] MEDS: DIOVAN 320 MG PO (22:51)
[2024-01-04] MEDS: LIPITOR 10 MG PO (22:51)
--- NOTE | 2024-01-04 23:24 | PTCARENOTE ---
Pt arrived back from @1957 right upper extremity hematoma washout. Thrill and bruit present on R fistula. Pt states she is in no pain. Will continue to monitor and obtain post-op vital signs.
[2024-01-05] VITALS (7 sets, daily range): BP systolic 141–185; BP diastolic 52–93; BMI 23.6
[2024-01-05] MEDS: CARAFATE 1 GRAM PO ×2 (05:19→16:29)
[2024-01-05] MEDS: RENVELA 1600 MG PO ×3 (05:19→16:29)
[2024-01-05] MEDS: APRESOLINE 25 MG PO ×2 (07:34→20:07)
[2024-01-05] MEDS: COREG 25 MG PO ×2 (07:35→20:08)
[2024-01-05] MEDS: PROTONIX 40 MG PO (07:35)
[2024-01-05] MEDS: HEPARIN 5000 UNITS SC ×2 (07:35→20:08)
[2024-01-05] MEDS: NEPHROCAP 1 CAPSULE PO (07:35)
[2024-01-05] MEDS: ROCALTROL 0.5 MCG PO (07:35)
[2024-01-05] MEDS: MIRALAX PO ×2 (07:35→07:37)
[2024-01-05] MEDS: SENSIPAR 60 MG PO (07:35)
[2024-01-05] MEDS: ASPIRIN ENTERIC COATED 325 MG PO (07:35)
[2024-01-05] MEDS: APRESOLINE 10 MG PO (11:27)
[2024-01-05 12:52] LABS: Hematocrit 23.8 % (37.0-47.0); Hemoglobin 7.7 g/dL (12.0-16.0); Mean Corp Hgb Conc. 32.4 g/dL (33.0-37.0); Mean Corpuscular Hgb 31.3 pg (27.0-31.0); Mean Corpuscular Volume 96.7 fL (81.0-99.0); Mean Platelet Volume 9.9 fL (7.4-10.4); Platelet Count 229 10^3/uL (130-400); Red Blood Cell Count 2.46 10^6/uL (4.20-5.40); Red Cell Dist. Width 16.8 % (11.5-14.5); White Blood Cell Count 5.9 10^3/uL (4.8-10.8)
[2024-01-05 13:12] LABS: Blood Urea Nitrogen 32 mg/dl (7-17); Calcium 9.6 mg/dl (8.4-10.2); Carbon Dioxide 29 mmol/L (22-30); Chloride 91 mmol/L (98-107); Estimated Creatinine Clearance 7 ml/min; Glucose 110 mg/dl (70-99); Potassium 4.4 mmol/L (3.5-5.1); Sodium 132 mmol/L (135-145); eGFR 6.41
[2024-01-05 13:15] LABS: Vancomycin Random 12.6 ug/ml
--- NOTE | 2024-01-05 13:25 | W.PN.VS ---
Addendum entered and electronically signed by Chris Hwang III, MD 01/05/24 15:30:
This patient was seen and examined with GAEL Oscar. I agree with the history and physical exam as well as the assessment and plan.
Signed:
Chris Hwang III, MD
[facility] Vascular Surgery
[phone] ([phone])
Original Note:
Today's Communication / Plan
-
Patient seen and evaluated at bedside with Dr. Chris Hwang III, below plan reviewed with attending.
Assessment/Plan
-
Assessment: 68-year-old female with end-stage renal disease and right arm edema secondary to the strong flow volumes through the graft following recent declot in the setting of a chronic central venous occlusion, no evidence to suggest graft
infection. Status post IR aspiration of right upper extremity collection that is consistent with chronic hematoma, however culture demonstrates Coagulase neg. staphylococcus. POD #1 Right upper extremity hematoma washout.
Plan:
Will continue with wound VAC therapy to right upper extremity hematoma washout site, next change Monday01/08/24
Consult to wound care
Can attempt arm compression and elevation to help with current right upper extremity edema
She will likely benefit from an attempt at crossing the central venous occlusion along with additional endovascular intervention (COPYMAN/stent). However, timing of procedure will be determined and on resolution of bacteremia
Subjective Data
-
Date of Service: January 05, 2024
Patient seen and examined at bedside, currently on HD circuit via catheter. Offers no complaints.
Objective Data
-
Vital Signs
Temp Pulse Resp BP Pulse Ox
98.0 F 81 16 177/81 100
01/05/24 11:21 01/05/24 11:21 01/05/24 11:21 01/05/24 11:27 01/05/24 11:21
Intake and Output
01/04/24 01/05/24 01/06/24
06:59 06:59 06:59
Intake Total 220 / 220 410 / 410
Balance 220 / 220 410 / 410
Intake:
Oral fluids 220 / 220 360 / 360
IV fluids (Total) 50 / 50
NSS 50 / 50
Other:
Number of approximated MODERATE 2 4
amounts of urine
Lab Results
01/05/24 12:28
01/05/24 12:28
Calcium 9.6 mg/dl (8.4-10.2) 01/05/24 12:28
Total Bilirubin 1.0 mg/dl (0.2-1.3) 12/28/23 10:09
AST 31 U/L (14-36) 12/28/23 10:09
ALT 16 U/L (0-35) 12/28/23 10:09
Alkaline Phosphatase 70 U/L (38-126) 12/28/23 10:09
Total Protein 6.4 g/dl (6.3-8.2) 12/28/23 10:09
Albumin 3.2 g/dl (3.5-5.0) L 12/28/23 10:09
Physical Exam
-
General: NAD, in bed resting comfortably
Pulm: Reg effort. Room air
Abd: Nondistended and nontender
RUE: +1 right upper extremity edema, AV graft with positive thrill, right hand warm, motor and sensation intact, postop surgical dressing CDI removed by vascular surgery team, redressed with wound VAC
--- NOTE | 2024-01-05 14:02 | PHA.VAN.FU ---
Vancomycin Assessment / Plan
- Assessment
Hemodialysis Schedule: MWF
Last Hemodialysis performed: 01/02
WBC's are: WNL
In the past 24 hrs, patient has been: Afebrile
- Assessment - Therapeutic Drug Monitoring
Random Level: pre-HD = 12.6
- Dosing Plan
Dosing by Level: Re-dose today (Vanc 750mg)
Dosing Comments: if level stable Monday, would consider scheduled Vanc 750mg MWF
- Monitoring Plan
No level(s) ordered at this time: consider next level for Monday
- Follow Up
Pharmacy will continue to follow.
Vancomycin Follow UP
- -
Patient Age: 68
Patient Sex: Female
Vancomycin Day #: 8
Indication: Bacteremia
Requesting Provider: Dr. Klein
Pertinent Antimicrobial Allergies:
cefazolin - itching
Height / Weight:
Height 5 ft 4 in
Actual Weight 62.369 kg
Pertinent Past Medical History: ESRD on HD
- Vital Signs / Lab Results
Temp Pulse Resp BP Pulse Ox
98.0 F 81 16 177/81 100
01/05/24 11:21 01/05/24 11:21 01/05/24 11:21 01/05/24 11:27 01/05/24 11:21
Lab Results - Hematology
01/03/24 01/04/24 01/05/24
12:52 08:45 12:28
WBC 5.7 5.0 5.9
Lab Results - Chemistry
01/03/24 01/04/24 01/05/24
12:53 08:45 12:28
BUN 32 H 16 32 H
Creatinine 6.9 H* 4.4 H* 6.5 H*
Estimated Creat Clear 7 10 7
Microbiology Results
01/04/24 18:41 Gram Stain - Preliminary
Fistula
01/02/24 09:26 Blood Culture - Preliminary
Blood/Venous No Growth in 72 hours- Final report to follow
01/02/24 15:31 Anaerobic Culture - Preliminary
Fluid Coagulase neg. staphylococcus
01/02/24 15:37 Body Fluid Culture - Preliminary
Fluid Coagulase neg. staphylococcus
Gram Stain - Preliminary
01/03/24 08:15 Blood Culture - Preliminary
Blood/Venous No Growth in 48 hours- Final report to follow
12/31/23 06:15 Blood Culture - Final
Blood/Venous No Growth - Final Report
12/30/23 13:04 Blood Culture - Final
Blood/Venous Staphylococcus epidermidis
Gram Stain - Final
Therapeutic Drug Monitoring
Random Vancomycin 12.6 ug/ml 01/05/24 12:28
--- NOTE | 2024-01-05 14:26 | W.PN.HOSP.TC ---
Today's Communication/Plan
-
Continue wound VAC.
Continue IV antibiotics
Assessment / Plan
Assessment / Plan
Impression:
Staff AP (coag negative staph) bacteremia 12/27 - 12/31
Right AV fistula infected hematoma/abscess with concern for possible source
Back pain status post fall. CT scan consistent with compression fracture
Conditions prior to admit
End-stage renal disease on hemodialysis Monday.
PKD
Right upper extremity AV graft requiring angioplasty 11/14
Essential hypertension, multidrug-resistant
CAD.
PAD
Anemia of chronic disease
Plan:
Staph epi bacteremia.
Aspirate culture from right upper extremity hematoma positive for staph epi confirming infected fluid collection as well as source of bacteremia.
Status post infected hematoma washout by vascular surgery on 01/03
Echocardiogram 01/01 preserved LVEF with no evidence of vegetation. Mild MR, moderate AAS, mild AI. Pulmonary hypertension with PASP 51 mmHg
Continue wound VAC
Continue vancomycin
Infectious disease input appreciated
End-stage renal disease
HD as per schedule
Patient has tunneled catheter placed prior to bacteremia clearance and may need exchange given possibility of seeding.
-Continue calcitriol
-Continue Lokelma for high potassium
� � K today 3.8
-Continue sevelamer
-Nephrology consulted for dialysis
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
-Continue Cinacalcet
Chronic anemia of renal disease
-Hemoglobin relatively stable at 8.9
Coronary artery disease
-Continue aspirin
Essential hypertension
-Continue Coreg, hydralazine, valsartan
Hypercholesterolemia
-Continue statin
GERD
-Continue Protonix, sucralfate
Smoker
-Smokes 2 cigarettes a day
Full code
DVT prophylaxis heparin
Renal diet
Episode of hypoglycemia
Resolved.
Anticipated Discharge: > 48 hours
Subjective/Interval History
-
Date of Service: January 05, 2024
Objective Data
-
Labs:
Laboratory Results
01/05/24
12:28
WBC 5.9
Hgb 7.7 L
Hct 23.8 L
Plt Count 229
Sodium 132 L
Potassium 4.4
Chloride 91 L
Carbon Dioxide 29
BUN 32 H
Creatinine 6.5 H*
Glucose 110 H
Calcium 9.6
Vital Signs:
Vital Signs
Temp Pulse Resp BP Pulse Ox
98.0 F 81 16 177/81 100
01/05/24 11:21 01/05/24 11:21 01/05/24 11:21 01/05/24 11:27 01/05/24 11:21
I&O
01/04/24 01/05/24 01/06/24
06:59 06:59 06:59
Intake Total 220 / 220 410 / 410
Balance 220 / 220 410 / 410
Physical Exam
-
General: Well Developed and No Apparent Distress
HEENT: Normocephalic, Atraumatic and Moist Mucous Membranes
Respiratory: Clear to Auscultation
Cardiac: Regular Rhythm and S1/S2; Negative Murmur, Rub or Gallop
GI: Soft, Nontender, Nondistended and Normal Bowel Sounds; Negative Organomegaly
Rectal: Deferred by Provider
Musculoskeletal: No Clubbing, No Cyanosis and No Edema
Skin: Negative Rash
Neuro: Nonfocal/Grossly Intact
[2024-01-05] MEDS: RETACRIT 10000 UNITS IV (14:41)
[2024-01-05] MEDS: VANCOCIN 150 IV (15:04)
--- NOTE | 2024-01-05 15:29 | W.PN.NEPH.HD ---
Assessment
-
pt seen during HD
vitals stable
UF as tolerates to EDW
CVC functions well
wound vac applied to the debrided area in RUE-appt vasc input
hopefully AVG can stay
abx per ID, will need eventual change catheter before d/c
high dose NILTON for anemia
Progress Note - Hemodialysis
-
Date of Service: January 05, 2024
Duration: 30 minutes and 3 hours
Potassium Bath: 3
Calcium Bath: 2.5
Opti-Dialyzer: 160
Ultrafiltration: Other (2-2.5kg)
Blood Flow: 400
Dialysate Flow: 600
Heparin: no
EPO: [id number]
--- NOTE | 2024-01-05 15:55 | WOUNDNOTE ---
WOC RN NOTE: Chart reviewed. Patient with wound vac to right upper arm s/p hematoma washout on 01/03. TT with Lillian Cha. Plan is for WOC RN to replace vac dressing on 01/08/2024. Per Lillian patient will go home with vac. Orders faxed to [facility] and
confirmation received. Current wound vac in use added to [employer].
[2024-01-05] MEDS: TYLENOL 650 MG PO (16:29)
--- NOTE | 2024-01-05 16:40 | OR.RPT ---
Operative Report
Operative Report
PROCEDURE DATE: 01/04/2024
Preoperative diagnosis:
1. Infected hematoma right proximal upper arm.
2. End-stage renal disease on hemodialysis.
Postoperative diagnosis: Same
Procedure: Incision and drainage of right upper extremity infected hematoma with pulse lavage irrigation.
Surgeon: Hitesh
Gill Box Tender: Jacinta Rodrigues NP required for assistance with traction/countertraction.
Complications: None
Anesthesia: General
Indications for procedure:
Chronic hematoma right upper extremity that had developed following attempted puncture of a prior hemodialysis access. Due to infectious concerns, this was aspirated and findings were suggestive of infection. She was therefore brought for
definitive washout. Discussed possible graft excision. Risk/benefits/alternatives all fully discussed. She understood all wish to proceed.
Description of procedure:
Patient was identified brought to the operating room placed on the table in supine position. After the adequate administration of anesthesia she was prepped and draped in the standard surgical fashion. A standard preoperative timeout was
undertaken and everybody was in agreement the plan. A longitudinal incision was made in the right proximal upper arm overlying the obvious hematoma to palpation. This was carried through skin subcutaneous tissue. I then popped into the hematoma
cavity. It was purulent infected hematoma clearly. I swabbed the purulent drainage. I then evacuated the entirety of the hematoma/abscess. It measured approximately 3.5 cm in spherical diameter. I examined the cavity and noted good granulation
at the base. No evidence of deeper tissue involvement. It was loculated abscess cavity. There was no AV graft that was exposed and it was well away from that site. I gently curetted and debrided the base/edges of the abscess cavity using a
Metzenbaum scissor. We then pulse lavage irrigated the abscess cavity copiously. Hemostasis was achieved and the wound was packed with wet-to-dry dressings. The patient tolerated procedure well.
--- NOTE | 2024-01-05 17:16 | W.PN.ID1 ---
Date of Service
Date of Service: January 05, 2024
Today's Communication
isolate is MRSE - Continue vancomycin for another 2 weeks through 01/16
- would exchange of the tunneled line if fistula cannot be used
- stable for dc from ID perspective
Assessment / Plan
S Epi (Coag neg staph) bacteremia sustained - 12/27-12/31
recent manipulation of RUE HD fistula with stent. Failed LUE fistula 10/12 - few strep in culture
RUE complex collection
Recommendations:
- body fluid from the abscess has also grown CONS (ie s epi) - s/p I&D 01/03
- isolate is MRSE - Continue vancomycin for another 2 weeks through 01/16
- would exchange of the tunneled line if fistula cannot be used
- stable for dc from ID perspective
Chief Complaint
-: Bacteremia
Subjective / Review of Systems
afebrile
bp stable
without leukocytosis
on hd today
wound vac in place
no complaints
Vital Signs / Physical Exam
Vital Signs
Vital Signs
Temp Pulse Resp BP Pulse Ox
97.7 F 54 16 156/80 98
01/05/24 15:37 01/05/24 15:37 01/05/24 15:37 01/05/24 16:20 01/05/24 15:37
Physical Exam
Constitutional: No Acute Distress
Cardiovascular: Regular Rate and S1/S2; Negative Murmur or Rub
Pulmonary: Clear and Symmetric; Negative Wheezes or Rales
Gastrointestinal: Soft, Non Tender, Non Distended and Normal Bowel Sounds
Skin: Warm and Dry; Negative Rash or Jaundice
Objective Data
Lab Data
Lab Results
01/05/24 12:28
01/05/24 12:28
Estimated Creat Clear 7 ml/min 01/05/24 12:28
Total Bilirubin 1.0 mg/dl (0.2-1.3) 12/28/23 10:09
AST 31 U/L (14-36) 12/28/23 10:09
ALT 16 U/L (0-35) 12/28/23 10:09
Alkaline Phosphatase 70 U/L (38-126) 12/28/23 10:09
Most recent labs reviewed.
Micro Results:
01/04/24 15:01 Blood Culture - Preliminary
Blood/Venous No Growth in 24 hours- Final report to follow
01/05/24 13:14 Blood Culture - Pending
Blood/Venous
01/04/24 18:41 Wound Culture - Pending
Fistula Gram Stain - Preliminary
01/02/24 09:26 Blood Culture - Preliminary
Blood/Venous No Growth in 72 hours- Final report to follow
01/02/24 15:31 Anaerobic Culture - Preliminary
Fluid Coagulase neg. staphylococcus
01/02/24 15:37 Body Fluid Culture - Preliminary
Fluid Coagulase neg. staphylococcus
Gram Stain - Preliminary
01/03/24 08:15 Blood Culture - Preliminary
Blood/Venous No Growth in 48 hours- Final report to follow
12/31/23 06:15 Blood Culture - Final
Blood/Venous No Growth - Final Report
01/04/24 18:41 Anaerobic Culture - Pending
Fistula
12/30/23 13:04 Blood Culture - Final
Blood/Venous Staphylococcus epidermidis
Gram Stain - Final
01/01/24 07:21 Blood Culture - Preliminary
Blood/Venous Staphylococcus epidermidis
Gram Stain - Preliminary
12/29/23 14:09 Blood Culture - Final
Blood/Venous Staphylococcus epidermidis
Gram Stain - Final
12/29/23 14:08 Blood Culture - Final
Blood/Venous Staphylococcus epidermidis
Gram Stain - Final
12/29/23 10:23 Blood Culture - Final
Blood/Venous Staphylococcus epidermidis
Gram Stain - Final
12/28/23 15:07 Blood Culture - Final
Blood/Venous Staphylococcus epidermidis
Gram Stain - Final
12/27/23 21:15 MRSA Screen - Final
Nose Staph aureus MRSA
12/27/23 13:33 Influenza Types A & B (SRINIVAS) - Final
Nasal Swab Negative for Influenza A & B, NAAT
Negative results must be combined with clinical observations
and patient history.
Nucleic Acid Amplification test (NAAT)performed on the
[employer] platform.
[2024-01-05] MEDS: LIPITOR 10 MG PO (21:30)
[2024-01-05] MEDS: DIOVAN 320 MG PO (21:30)
[2024-01-05] MEDS: TUMS 1 TABLET PO (22:55)
[2024-01-06 06:00] VITALS: BMI 22.6
[2024-01-06 08:11] VITALS: BP 178/76
[2024-01-06] MEDS: CARAFATE PO (08:36)
[2024-01-06] MEDS: NEPHROCAP 1 CAPSULE PO (08:40)
[2024-01-06] MEDS: COREG 25 MG PO ×2 (08:41→19:32)
[2024-01-06] MEDS: APRESOLINE 25 MG PO (08:41)
[2024-01-06] MEDS: PROTONIX 40 MG PO (08:41)
[2024-01-06] MEDS: ASPIRIN ENTERIC COATED 325 MG PO (08:41)
[2024-01-06] MEDS: RENVELA 1600 MG PO ×3 (08:41→16:59)
[2024-01-06] MEDS: MIRALAX PO (08:42)
[2024-01-06] MEDS: HEPARIN 5000 UNITS SC ×2 (08:42→19:33)
--- NOTE | 2024-01-06 08:51 | PHA.VAN.FU ---
Vancomycin Assessment / Plan
- Assessment
Hemodialysis Schedule: MWF
WBC's are: Trending Up (5.0>5.9)
In the past 24 hrs, patient has been: Afebrile
- Dosing Plan
Dosing by Level: Hold off on dosing today (Dose on Hemodialysis days)
- Monitoring Plan
No level(s) ordered at this time: Will order a random level pre-HD for Monday01/08/24
- Follow Up
Pharmacy will continue to follow.
Vancomycin Follow UP
- -
Patient Age: 68
Patient Sex: Female
Vancomycin Day #: 9
Indication: Bacteremia
Requesting Provider: Dr. Klein
Pertinent Antimicrobial Allergies:
cefazolin - itching
Height / Weight:
Height 5 ft 4 in
Actual Weight 59.676 kg
Pertinent Past Medical History: ESRD on HD
- Vital Signs / Lab Results
Temp Pulse Resp BP Pulse Ox
98.3 F 78 16 178/76 100
01/06/24 08:11 01/06/24 08:11 01/05/24 23:00 01/06/24 08:11 01/06/24 08:11
Lab Results - Hematology
01/03/24 01/04/24 01/05/24
12:52 08:45 12:28
WBC 5.7 5.0 5.9
Lab Results - Chemistry
01/03/24 01/04/24 01/05/24
12:53 08:45 12:28
BUN 32 H 16 32 H
Creatinine 6.9 H* 4.4 H* 6.5 H*
Estimated Creat Clear 7 10 7
Microbiology Results
01/02/24 15:37 Body Fluid Culture - Preliminary
Fluid Coagulase neg. staphylococcus
Gram Stain - Preliminary
01/04/24 15:01 Blood Culture - Preliminary
Blood/Venous No Growth in 24 hours- Final report to follow
01/04/24 18:41 Gram Stain - Preliminary
Fistula
01/02/24 09:26 Blood Culture - Preliminary
Blood/Venous No Growth in 72 hours- Final report to follow
01/02/24 15:31 Anaerobic Culture - Preliminary
Fluid Coagulase neg. staphylococcus
01/03/24 08:15 Blood Culture - Preliminary
Blood/Venous No Growth in 48 hours- Final report to follow
12/31/23 06:15 Blood Culture - Final
Blood/Venous No Growth - Final Report
Therapeutic Drug Monitoring
Random Vancomycin 12.6 ug/ml 01/05/24 12:28
--- NOTE | 2024-01-06 11:20 | W.PN.NEPH.PH ---
Today's Communication / Plan
-
HD Monday
BP meds adjustment
Assessment/Plan
-
Impression:
Falls back pain multiple joint arthralgias, weakness failure to thrive
End-stage renal disease Monday schedule
Multidrug-resistant hypertension
Hypoglycemia
Secondary hyperparathyroid
Hyperphosphatemia
Coronary artery disease
History of polycystic kidney disease
Right upper extremity AV graft, previous history of
�� interventions.
Angioplasty in October 2022
Peripheral arterial disease
Plan:
Persistent bacteremia with MRSE, bld cx neg 72hrs
abx per ID, AVG US shows complex fluid collection in upper arm- s/p aspiration +wound vac
AVG remains hopefully will try accessing if ok with vascular
TDC was placed during bacteremia hence will need to be exchanged before d/c if she still needs CVC
strict renal diet and FR for hyponatremia
BP are high , med list not accurate when compared to HD unit list-supposed to be on clonidine 0.2 BID and hydralazine 50mg TID
will titrate up meds to home doses
potassium also in normal range, holding LOkelma
HD Monday
on 01/01 we reviewed with pt in detail that smoking clearly causing many issues, AVG clotting etc..she is motivated to quit but never been successful before
-
-
Date of Service: January 06, 2024
CC / HPI / ROS
-
Chief Complaint:
ESRD on HD
History of Present Illness:
bld cx neg D3
TDC placed during bacteremia
BP sub optimal high, k normal
no fever
Review of Systems:
feeling well
wants to go home
no cp or sob
Labs
-
Labs:
WBC 5.9 10^3/uL (4.8-10.8) 01/05/24 12:28
RBC 2.46 10^6/uL (4.20-5.40) L 01/05/24 12:28
Hgb 7.7 g/dL (12.0-16.0) L 01/05/24 12:
Hct 23.8 % (37.0-47.0) L 01/05/24 12:
Plt Count 229 10^3/uL (130-400) 01/05/24 12:28
Sodium 132 mmol/L (135-145) L 01/05/24 12:28
Potassium 4.4 mmol/L (3.5-5.1) 01/05/24 12:
Chloride 91 mmol/L (98-107) L 01/05/24 12:28
Carbon Dioxide 29 mmol/L (22-30) 01/05/24 12:28
BUN 32 mg/dl (7-17) H 01/05/24 12:28
Creatinine 6.5 mg/dL (0.6-1.0) H* 01/05/24 12:28
eGFR 6.41 01/05/24 12:28
Glucose 110 mg/dl (70-99) H 01/05/24 12:28
Calcium 9.6 mg/dl (8.4-10.2) 01/05/24 12:28
Albumin 3.2 g/dl (3.5-5.0) L 12/28/23 10:09
Physical Exam
-
Vital Signs:
Vital Signs
Temp Pulse Resp BP Pulse Ox
98.3 F 78 16 178/76 100
01/06/24 08:11 01/06/24 08:11 01/05/24 23:00 01/06/24 08:11 01/06/24 08:11
Cardiovascular:: Regular rate and rhythm
Respiratory:: Bilateral: CTA
Lung Excursion:: Normal
Abdomen:: Nontender and Soft
Extremity Edema:: None: Bilateral:
Hwang Catheter: No
Other Findings::
AVG +bruit
--- NOTE | 2024-01-06 13:13 | W.PN.HOSP.TC ---
Today's Communication/Plan
-
HD Monday
cont IV vanco through 01/16
cont wound vac
Assessment / Plan
Assessment / Plan
Impression:
Staph epi(coag negative staph) bacteremia 12/27 - 12/31
Right AV fistula infected hematoma/abscess with concern for possible source
Back pain status post fall. CT scan consistent with compression fracture
Conditions prior to admit
End-stage renal disease on hemodialysis Monday.
PKD
Right upper extremity AV graft requiring angioplasty 11/14
Essential hypertension, multidrug-resistant
CAD.
PAD
Anemia of chronic disease
Plan:
01/05 -- here through the with IV ABX through 01/16-- cont wound vac--HD Monday
Staph epi bacteremia.
Aspirate culture from right upper extremity hematoma positive for staph epi confirming infected fluid collection as well as source of bacteremia.
Status post infected hematoma washout by vascular surgery on 01/03
Echocardiogram 01/01 preserved LVEF with no evidence of vegetation. Mild MR, moderate AAS, mild AI. Pulmonary hypertension with PASP 51 mmHg
Continue wound VAC
Continue vancomycin
Infectious disease input appreciated
End-stage renal disease
HD as per schedule
Patient has tunneled catheter placed prior to bacteremia clearance and may need exchange given possibility of seeding.
-Continue calcitriol
-Continue Lokelma for high potassium
� � K today 3.8
-Continue sevelamer
-Nephrology consulted for dialysis
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
-Continue Cinacalcet
Chronic anemia of renal disease
-Hemoglobin relatively stable at 8.9
Coronary artery disease
-Continue aspirin
Essential hypertension
-Continue Coreg, hydralazine, valsartan
Hypercholesterolemia
-Continue statin
GERD
-Continue Protonix, sucralfate
Smoker
-Smokes 2 cigarettes a day
Full code
DVT prophylaxis heparin
Renal diet
Episode of hypoglycemia
Resolved.
Anticipated Discharge: > 48 hours
Subjective/Interval History
-
Date of Service: January 06, 2024
pt without c/o
Objective Data
-
Vital Signs:
max temp for 24 hours
01/05/24
23:00
Temp 98.4 F
Vital Signs
Temp Pulse Resp BP Pulse Ox
98.3 F 78 16 178/76 100
01/06/24 08:11 01/06/24 08:11 01/05/24 23:00 01/06/24 08:11 01/06/24 08:11
I&O
01/05/24 01/06/24 01/07/24
06:59 06:59 06:59
Intake Total 410 / 410 960 / 960
Balance 410 / 410 960 / 960
Review of Systems
-
All other systems: Reviewed and negative
Physical Exam
-
General: Well Developed, Well Nourished and No Apparent Distress
HEENT: Normocephalic and Atraumatic
Respiratory: Clear to Auscultation; Negative Wheezes or Rhonchi
Cardiac: Regular Rhythm and S1/S2; Negative Murmur
GI: Soft, Nontender, Nondistended and Normal Bowel Sounds
Musculoskeletal: No Clubbing, No Cyanosis, No Edema and Other (wound vac to right arm)
Neuro: Awake
Psych: Calm
[2024-01-06] MEDS: TYLENOL 650 MG PO (14:15)
[2024-01-06 15:00] VITALS: BP 145/55
[2024-01-06] MEDS: CARAFATE 1 GRAM PO (16:59)
[2024-01-06] MEDS: APRESOLINE 50 MG PO ×2 (17:05→21:49)
[2024-01-06] MEDS: LIPITOR 10 MG PO (21:48)
[2024-01-06] MEDS: DIOVAN 320 MG PO (21:49)
[2024-01-06 23:05] VITALS: BP 151/61
[2024-01-07] MEDS: TYLENOL 650 MG PO ×2 (05:14→20:56)
[2024-01-07 06:00] VITALS: BMI 22.9
[2024-01-07 07:05] VITALS: BP 136/70
[2024-01-07] MEDS: CARAFATE PO (08:09)
[2024-01-07] MEDS: COREG 25 MG PO ×2 (08:22→20:56)
[2024-01-07] MEDS: RENVELA 1600 MG PO ×3 (08:22→16:36)
[2024-01-07] MEDS: PROTONIX 40 MG PO (08:22)
[2024-01-07] MEDS: HEPARIN 5000 UNITS SC ×2 (08:22→20:56)
[2024-01-07] MEDS: MIRALAX PO (08:23)
[2024-01-07] MEDS: NEPHROCAP 1 CAPSULE PO (08:23)
[2024-01-07] MEDS: ASPIRIN ENTERIC COATED 325 MG PO (08:23)
[2024-01-07] MEDS: LIDOCAINE 4% PATCH 2 PATCH TOPICAL (08:25)
[2024-01-07] MEDS: APRESOLINE PO (08:42)
[2024-01-07] MEDS: APRESOLINE 50 MG PO ×3 (08:43→22:35)
--- NOTE | 2024-01-07 09:00 | W.PN.ID1 ---
Date of Service
Date of Service: January 07, 2024
Today's Communication
DC HD cath.
Assessment / Plan
S Epi (Coag neg staph) bacteremia sustained - 12/27-01/04
recent manipulation of RUE HD fistula with stent. Failed LUE fistula 10/12 - few strep in culture
RUE complex collection
Recommendations:
- body fluid from the abscess has also grown CONS (ie s epi) - s/p I&D 01/03
- isolate is MRSE - Continue vancomycin
-01/04 blood culture turned positive
- Recommend dc HD cath (placed when bacteremic). Discussed with renal, Dr. uPrdy -> plan on line holiday.
-Continue repeat blood cx's.
Chief Complaint
-: Bacteremia
Subjective / Review of Systems
No complaints today.
Vital Signs / Physical Exam
Vital Signs
Vital Signs
Temp Pulse Resp BP Pulse Ox
98.2 F 86 16 136/70 100
01/07/24 07:05 01/07/24 07:05 01/07/24 07:05 01/07/24 07:05 01/07/24 07:05
Physical Exam
Constitutional: No Acute Distress
Gastrointestinal: Non Tender and Non Distended
Wound: Other (RUE with wound vac, no erythema)
Lines: HD Cath (Left chest no erythema)
Objective Data
Lab Data
Lab Results
01/05/24 12:28
01/05/24 12:28
Estimated Creat Clear 7 ml/min 01/05/24 12:28
Total Bilirubin 1.0 mg/dl (0.2-1.3) 12/28/23 10:09
AST 31 U/L (14-36) 12/28/23 10:09
ALT 16 U/L (0-35) 12/28/23 10:09
Alkaline Phosphatase 70 U/L (38-126) 12/28/23 10:09
Most recent labs reviewed.
Micro Results:
01/03/24 08:15 Blood Culture - Preliminary
Blood/Venous No Growth in 4 days- Final report to follow
01/06/24 06:47 Blood Culture - Preliminary
Blood/Venous No Growth in 24 hours- Final report to follow
01/07/24 07:08 Blood Culture - Pending
Blood/Venous
01/04/24 15:01 Blood Culture - Preliminary
Blood/Venous No Growth in 48 hours- Final report to follow
01/05/24 13:14 Blood Culture - Preliminary
Blood/Venous Positive culture in progress
Gram Stain - Preliminary
01/04/24 18:41 Anaerobic Culture - Preliminary
Fistula Culture pending. Anaerobic cultures are examined after 3
days incubation. Additional information to follow.
01/04/24 18:41 Wound Culture - Preliminary
Fistula Gram Stain - Preliminary
01/02/24 09:26 Blood Culture - Preliminary
Blood/Venous No Growth in 4 days- Final report to follow
01/02/24 15:31 Anaerobic Culture - Final
Fluid Staphylococcus epidermidis
01/02/24 15:37 Body Fluid Culture - Final
Fluid Staphylococcus epidermidis
Gram Stain - Final
12/31/23 06:15 Blood Culture - Final
Blood/Venous No Growth - Final Report
12/30/23 13:04 Blood Culture - Final
Blood/Venous Staphylococcus epidermidis
Gram Stain - Final
01/01/24 07:21 Blood Culture - Preliminary
Blood/Venous Staphylococcus epidermidis
Gram Stain - Preliminary
12/29/23 14:09 Blood Culture - Final
Blood/Venous Staphylococcus epidermidis
Gram Stain - Final
12/29/23 14:08 Blood Culture - Final
Blood/Venous Staphylococcus epidermidis
Gram Stain - Final
12/29/23 10:23 Blood Culture - Final
Blood/Venous Staphylococcus epidermidis
Gram Stain - Final
12/28/23 15:07 Blood Culture - Final
Blood/Venous Staphylococcus epidermidis
Gram Stain - Final
12/27/23 21:15 MRSA Screen - Final
Nose Staph aureus MRSA
12/27/23 13:33 Influenza Types A & B (SRINIVAS) - Final
Nasal Swab Negative for Influenza A & B, NAAT
Negative results must be combined with clinical observations
and patient history.
Nucleic Acid Amplification test (NAAT)performed on the
[employer] platform.
Care Review
Plan reviewed with: Physician (Dr. Purdy)
--- NOTE | 2024-01-07 09:49 | PHA.VAN.FU ---
Vancomycin Assessment / Plan
- Assessment
Hemodialysis Schedule: MWF
WBC's are: Trending Up (5.0>5.9)
In the past 24 hrs, patient has been: Afebrile
- Dosing Plan
Dosing by Level: Hold off on dosing today (dosing on HD days)
- Monitoring Plan
Random Level: Ordered for 01/08/24 at 06:00
- Follow Up
Pharmacy will continue to follow.
Vancomycin Follow UP
- -
Patient Age: 68
Patient Sex: Female
Vancomycin Day #: 10
Indication: Bacteremia
Requesting Provider: Dr. Klein
Pertinent Antimicrobial Allergies:
cefazolin - itching
Height / Weight:
Height 5 ft 4 in
Actual Weight 60.356 kg
Pertinent Past Medical History: ESRD on HD
- Vital Signs / Lab Results
Temp Pulse Resp BP Pulse Ox
98.2 F 86 16 136/70 100
01/07/24 07:05 01/07/24 07:05 01/07/24 07:05 01/07/24 07:05 01/07/24 07:05
Lab Results - Hematology
01/05/24
12:28
WBC 5.9
Lab Results - Chemistry
01/05/24
12:28
BUN 32 H
Creatinine 6.5 H*
Estimated Creat Clear 7
Microbiology Results
01/02/24 09:26 Blood Culture - Final
Blood/Venous No Growth - Final Report
01/03/24 08:15 Blood Culture - Preliminary
Blood/Venous No Growth in 4 days- Final report to follow
01/06/24 06:47 Blood Culture - Preliminary
Blood/Venous No Growth in 24 hours- Final report to follow
01/04/24 15:01 Blood Culture - Preliminary
Blood/Venous No Growth in 48 hours- Final report to follow
01/05/24 13:14 Blood Culture - Preliminary
Blood/Venous Positive culture in progress
Gram Stain - Preliminary
01/04/24 18:41 Anaerobic Culture - Preliminary
Fistula Culture pending. Anaerobic cultures are examined after 3
days incubation. Additional information to follow.
01/04/24 18:41 Wound Culture - Preliminary
Fistula Gram Stain - Preliminary
01/02/24 15:31 Anaerobic Culture - Final
Fluid Staphylococcus epidermidis
01/02/24 15:37 Body Fluid Culture - Final
Fluid Staphylococcus epidermidis
Gram Stain - Final
12/31/23 06:15 Blood Culture - Final
Blood/Venous No Growth - Final Report
Therapeutic Drug Monitoring
Random Vancomycin 12.6 ug/ml 01/05/24 12:28
--- NOTE | 2024-01-07 12:57 | W.PN.HOSP.TC ---
Today's Communication/Plan
-
HD Monday and hopefully d/c
Assessment / Plan
Assessment / Plan
Impression:
Staph epi(coag negative staph) bacteremia 12/27 - 12/31
Right AV fistula infected hematoma/abscess with concern for possible source
Back pain status post fall. CT scan consistent with compression fracture
Conditions prior to admit
End-stage renal disease on hemodialysis Monday.
PKD
Right upper extremity AV graft requiring angioplasty 11/14
Essential hypertension, multidrug-resistant
CAD.
PAD
Anemia of chronic disease
Plan:
01/06 -- HD Monday--hopefully d/c then--no other changes
01/05 -- here through the with IV ABX through 01/16-- cont wound vac--HD Monday
Staph epi bacteremia.
Aspirate culture from right upper extremity hematoma positive for staph epi confirming infected fluid collection as well as source of bacteremia.
Status post infected hematoma washout by vascular surgery on 01/03
Echocardiogram 01/01 preserved LVEF with no evidence of vegetation. Mild MR, moderate AAS, mild AI. Pulmonary hypertension with PASP 51 mmHg
Continue wound VAC
Continue vancomycin
Infectious disease input appreciated
End-stage renal disease
HD as per schedule
Patient has tunneled catheter placed prior to bacteremia clearance and may need exchange given possibility of seeding.
-Continue calcitriol
-Continue Lokelma for high potassium
� � K today 3.8
-Continue sevelamer
-Nephrology consulted for dialysis
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
-Continue Cinacalcet
Chronic anemia of renal disease
-Hemoglobin relatively stable at 8.9
Coronary artery disease
-Continue aspirin
Essential hypertension
-Continue Coreg, hydralazine, valsartan
Hypercholesterolemia
-Continue statin
GERD
-Continue Protonix, sucralfate
Smoker
-Smokes 2 cigarettes a day
Full code
DVT prophylaxis heparin
Renal diet
Episode of hypoglycemia
Resolved.
Anticipated Discharge: Within 24 hours
Subjective/Interval History
-
Date of Service: January 07, 2024
pt waiting to go home
Objective Data
-
Vital Signs:
max temp for 24 hours
01/06/24
23:05
Temp 98.5 F
Vital Signs
Temp Pulse Resp BP Pulse Ox
98.2 F 86 16 136/70 100
01/07/24 07:05 01/07/24 07:05 01/07/24 07:05 01/07/24 07:05 01/07/24 07:05
I&O
01/06/24 01/07/24 01/08/24
06:59 06:59 06:59
Intake Total 960 / 960 700 / 700
Balance 960 / 960 700 / 700
Review of Systems
-
All other systems: Reviewed and negative
Physical Exam
-
General: Well Developed, Well Nourished and No Apparent Distress
HEENT: Normocephalic and Atraumatic
Respiratory: Clear to Auscultation; Negative Wheezes or Rhonchi
Cardiac: Regular Rhythm and S1/S2; Negative Murmur
GI: Soft, Nontender, Nondistended and Normal Bowel Sounds
Musculoskeletal: No Clubbing, No Cyanosis, No Edema and Other (wound vac right upper arm)
Neuro: Awake and Alert
Psych: Calm
--- NOTE | 2024-01-07 15:03 | W.PN.NEPH.PH ---
Today's Communication / Plan
-
HD tomorrow then line holiday
Assessment/Plan
-
Impression:
Falls back pain multiple joint arthralgias, weakness failure to thrive
End-stage renal disease Monday schedule
Multidrug-resistant hypertension
Hypoglycemia
Secondary hyperparathyroid
Hyperphosphatemia
Coronary artery disease
History of polycystic kidney disease
Right upper extremity AV graft, previous history of
�� interventions.
Angioplasty in October 2022
Peripheral arterial disease
Plan:
Persistent bacteremia with MRSE
abx per ID, AVG US shows complex fluid collection in upper arm- s/p aspiration +wound vac
AVG remains hopefully will try accessing if ok with vascular
due to recurrent +ve bld cx -plan line holiday-d/w ID
HD tomorrow and remove HD catheter after-IR notified
strict renal diet and FR for hyponatremia
BP are better today with home meds except clonidine suggest diet indiscretion at home
potassium also in normal range, holding LOkelma
HD Monday
Do not think ready for d/c yet
d/w pt in detail
-
-
Date of Service: January 07, 2024
CC / HPI / ROS
-
Chief Complaint:
ESRD on HD
History of Present Illness:
bld cx positive still
TDC placed during bacteremia
BP stable, k normal
no fever
Review of Systems:
feeling well
wants to go home
no cp or sob
Labs
-
Labs:
WBC 5.9 10^3/uL (4.8-10.8) 01/05/24 12:28
RBC 2.46 10^6/uL (4.20-5.40) L 01/05/24 12:28
Hgb 7.7 g/dL (12.0-16.0) L 01/05/24 12:
Hct 23.8 % (37.0-47.0) L 01/05/24 12:
Plt Count 229 10^3/uL (130-400) 01/05/24 12:
Sodium 132 mmol/L (135-145) L 01/05/24 12:
Potassium 4.4 mmol/L (3.5-5.1) 01/05/24 12:
Chloride 91 mmol/L (98-107) L 01/05/24 12:
Carbon Dioxide 29 mmol/L (22-30) 01/05/24 12:
BUN 32 mg/dl (7-17) H 01/05/24 12:
Creatinine 6.5 mg/dL (0.6-1.0) H* 01/05/24 12:
eGFR 6.41 01/05/24 12:
Glucose 110 mg/dl (70-99) H 01/05/24 12:
Calcium 9.6 mg/dl (8.4-10.2) 01/05/24 12:
Albumin 3.2 g/dl (3.5-5.0) L 12/28/23 10:09
Physical Exam
-
Vital Signs:
Vital Signs
Temp Pulse Resp BP Pulse Ox
98.2 F 86 16 136/70 100
01/07/24 07:05 01/07/24 07:05 01/07/24 07:05 01/07/24 07:05 01/07/24 07:05
Cardiovascular:: Regular rate and rhythm
Respiratory:: Bilateral: CTA
Lung Excursion:: Normal
Abdomen:: Nontender and Soft
Extremity Edema:: None: Bilateral:
Hwang Catheter: No
[2024-01-07 15:05] VITALS: BP 144/54
[2024-01-07] MEDS: CARAFATE 1 GRAM PO (16:36)
[2024-01-07 20:55] VITALS: BP 158/60
[2024-01-07 22:34] VITALS: BP 146/55
[2024-01-07] MEDS: LIPITOR 10 MG PO (22:35)
[2024-01-07] MEDS: DIOVAN 320 MG PO (22:35)
[2024-01-08 05:21] VITALS: BMI 23.1
[2024-01-08 07:12] VITALS: BP 151/78
[2024-01-08] MEDS: HEPARIN 500 UNITS IV ×2 (07:50→08:50)
[2024-01-08 08:44] LABS: Hematocrit 23.7 % (37.0-47.0); Hemoglobin 7.6 g/dL (12.0-16.0); Mean Corp Hgb Conc. 32.1 g/dL (33.0-37.0); Mean Corpuscular Hgb 31.7 pg (27.0-31.0); Mean Corpuscular Volume 98.8 fL (81.0-99.0); Mean Platelet Volume 9.9 fL (7.4-10.4); Platelet Count 212 10^3/uL (130-400); Red Cell Dist. Width 17.9 % (11.5-14.5); White Blood Cell Count 4.9 10^3/uL (4.8-10.8)
[2024-01-08 08:51] LABS: Vancomycin Random 13.4 ug/ml
[2024-01-08] MEDS: RETACRIT 10000 UNITS IV (08:53)
--- NOTE | 2024-01-08 09:02 | PHA.VAN.FU ---
Vancomycin Assessment / Plan
- Assessment
Hemodialysis Schedule: MWF
Last Hemodialysis performed: 01/04
WBC's are: WNL
In the past 24 hrs, patient has been: Afebrile
- Assessment - Therapeutic Drug Monitoring
Random Level: pre-HD = 13.4
- Dosing Plan
Adjust Regimen to: Vanc 750mg HD MWF
Dosing Comments: follow HD plans with line holiday
- Monitoring Plan
No level(s) ordered at this time: may consider level in next few days depending on HD Plans
- Follow Up
Pharmacy will continue to follow.
Vancomycin Follow UP
- -
Patient Age: 68
Patient Sex: Female
Vancomycin Day #: 11
Indication: Bacteremia
Requesting Provider: Dr. Klein
Pertinent Antimicrobial Allergies:
cefazolin - itching
Height / Weight:
Height 5 ft 4 in
Actual Weight 60.963 kg
Pertinent Past Medical History: ESRD on HD
- Vital Signs / Lab Results
Temp Pulse Resp BP Pulse Ox
98.3 F 83 16 146/55 100
01/07/24 22:34 01/07/24 22:35 01/07/24 22:34 01/07/24 22:35 01/07/24 22:34
Lab Results - Hematology
01/05/24 01/08/24
12:28 08:01
WBC 5.9 4.9
Lab Results - Chemistry
01/05/24
12:28
BUN 32 H
Creatinine 6.5 H*
Estimated Creat Clear 7
Microbiology Results
01/03/24 08:15 Blood Culture - Final
Blood/Venous No Growth - Final Report
01/06/24 06:47 Blood Culture - Preliminary
Blood/Venous Positive culture in progress
Gram Stain - Final
01/07/24 07:08 Blood Culture - Preliminary
Blood/Venous No Growth in 24 hours- Final report to follow
01/04/24 15:01 Blood Culture - Preliminary
Blood/Venous No Growth in 72 hours- Final report to follow
01/04/24 18:41 Wound Culture - Preliminary
Fistula Coagulase neg. staphylococcus
Gram Stain - Preliminary
01/05/24 13:14 Blood Culture - Preliminary
Blood/Venous Coagulase neg. staphylococcus
Gram Stain - Preliminary
01/02/24 09:26 Blood Culture - Final
Blood/Venous No Growth - Final Report
01/04/24 18:41 Anaerobic Culture - Preliminary
Fistula Culture pending. Anaerobic cultures are examined after 3
days incubation. Additional information to follow.
01/02/24 15:31 Anaerobic Culture - Final
Fluid Staphylococcus epidermidis
01/02/24 15:37 Body Fluid Culture - Final
Fluid Staphylococcus epidermidis
Gram Stain - Final
Therapeutic Drug Monitoring
Random Vancomycin 13.4 ug/ml 01/08/24 08:01
[2024-01-08 09:09] LABS: ALT (SGPT) 13 U/L (0-35); AST (SGOT) 25 U/L (14-36); Albumin 3.1 g/dl (3.5-5.0); Alkaline Phosphatase 92 U/L (38-126); Blood Urea Nitrogen 46 mg/dl (7-17); Calcium 9.4 mg/dl (8.4-10.2); Carbon Dioxide 26 mmol/L (22-30); Chloride 99 mmol/L (98-107); Estimated Creatinine Clearance 6 ml/min; Glucose 85 mg/dl (70-99); Magnesium 2.4 mg/dl (1.6-2.3); Potassium 4.3 mmol/L (3.5-5.1); Sodium 131 mmol/L (135-145); Total Bilirubin 0.5 mg/dl (0.2-1.3); Total Protein 6.1 g/dl (6.3-8.2); eGFR 4.92
--- NOTE | 2024-01-08 09:18 | W.PN.NEPH.HD ---
Assessment
-
Patient seen on HD
sbp at 131 at current u/f
patient with persistent positive blood cultures
Remains on vancomycin
For removal of tunneled catheter today and will have catheter holiday
Plan on placing temporary catheter on Monday
Progress Note - Hemodialysis
-
Date of Service: January 08, 2024
Duration: 30 minutes and 3 hours
Potassium Bath: 2
Calcium Bath: 2.5
Opti-Dialyzer: 160
Ultrafiltration: Other (2.5kg)
Blood Flow: 400
Dialysate Flow: 600
Heparin: 500 times two
EPO: 10K
--- NOTE | 2024-01-08 09:47 | W.PN.ID1 ---
Date of Service
Date of Service: January 08, 2024
Today's Communication
line holiday planned
continue to follow blood cultures
Assessment / Plan
S Epi (Coag neg staph) bacteremia sustained - 12/27-01/05
recent manipulation of RUE HD fistula with stent. Failed LUE fistula 10/12 - few strep in culture
RUE complex collection
Recommendations:
- body fluid from the abscess has also grown CONS (ie s epi) - s/p I&D 01/03
- isolate is MRSE - Continue vancomycin
- 01/04 blood culture turned positive
- for HD cath removal and line holiday; if not resolving may need to readdress fistula
- Continue repeat blood cx's.
Chief Complaint
-: Bacteremia
Subjective / Review of Systems
afebrile
bp stable
no leukocytosis
cr stable
01/04 and 01/05 blood cultures now positive
Vital Signs / Physical Exam
Vital Signs
Vital Signs
Temp Pulse Resp BP Pulse Ox
98.3 F 88 16 151/78 100
01/08/24 07:12 01/08/24 07:12 01/08/24 07:12 01/08/24 07:12 01/08/24 07:12
Physical Exam
Constitutional: No Acute Distress
Cardiovascular: Regular Rate and S1/S2; Negative Murmur or Rub
Pulmonary: Clear and Symmetric; Negative Wheezes or Rales
Gastrointestinal: Soft, Non Tender, Non Distended and Normal Bowel Sounds
Extremities: Other (no erythema or swelling over the R arm fistula)
Skin: Warm and Dry; Negative Rash or Jaundice
Objective Data
Lab Data
Lab Results
01/08/24 08:01
01/08/24 08:01
Estimated Creat Clear 6 ml/min 01/08/24 08:01
Total Bilirubin 0.5 mg/dl (0.2-1.3) 01/08/24 08:01
AST 25 U/L (14-36) 01/08/24 08:01
ALT 13 U/L (0-35) 01/08/24 08:01
Alkaline Phosphatase 92 U/L (38-126) 01/08/24 08:01
Most recent labs reviewed.
Micro Results:
01/06/24 06:47 Blood Culture - Preliminary
Blood/Venous Coagulase neg. staphylococcus
Gram Stain - Final
01/03/24 08:15 Blood Culture - Final
Blood/Venous No Growth - Final Report
01/08/24 08:01 Blood Culture - Pending
Blood/Venous
01/07/24 07:08 Blood Culture - Preliminary
Blood/Venous No Growth in 24 hours- Final report to follow
01/04/24 15:01 Blood Culture - Preliminary
Blood/Venous No Growth in 72 hours- Final report to follow
01/04/24 18:41 Wound Culture - Preliminary
Fistula Coagulase neg. staphylococcus
Gram Stain - Preliminary
01/05/24 13:14 Blood Culture - Preliminary
Blood/Venous Coagulase neg. staphylococcus
Gram Stain - Preliminary
01/02/24 09:26 Blood Culture - Final
Blood/Venous No Growth - Final Report
01/04/24 18:41 Anaerobic Culture - Preliminary
Fistula Culture pending. Anaerobic cultures are examined after 3
days incubation. Additional information to follow.
01/02/24 15:31 Anaerobic Culture - Final
Fluid Staphylococcus epidermidis
01/02/24 15:37 Body Fluid Culture - Final
Fluid Staphylococcus epidermidis
Gram Stain - Final
12/31/23 06:15 Blood Culture - Final
Blood/Venous No Growth - Final Report
12/30/23 13:04 Blood Culture - Final
Blood/Venous Staphylococcus epidermidis
Gram Stain - Final
01/01/24 07:21 Blood Culture - Preliminary
Blood/Venous Staphylococcus epidermidis
Gram Stain - Preliminary
12/29/23 14:09 Blood Culture - Final
Blood/Venous Staphylococcus epidermidis
Gram Stain - Final
12/29/23 14:08 Blood Culture - Final
Blood/Venous Staphylococcus epidermidis
Gram Stain - Final
12/29/23 10:23 Blood Culture - Final
Blood/Venous Staphylococcus epidermidis
Gram Stain - Final
12/28/23 15:07 Blood Culture - Final
Blood/Venous Staphylococcus epidermidis
Gram Stain - Final
12/27/23 21:15 MRSA Screen - Final
Nose Staph aureus MRSA
12/27/23 13:33 Influenza Types A & B ([facility]IVAS) - Final
Nasal Swab Negative for Influenza A & B, NAAT
Negative results must be combined with clinical observations
and patient history.
Nucleic Acid Amplification test (NAAT)performed on the
[employer] platform.
[2024-01-08] MEDS: TYLENOL 650 MG PO ×2 (09:53→20:33)
[2024-01-08] MEDS: MANNITOL 12.5 GRAMS IV (10:35)
[2024-01-08] MEDS: FLEXBUMIN 25% FOR HEMODIALYSIS 12.5 GRAMS IV (10:36)
--- NOTE | 2024-01-08 10:38 | W.PN.HOSP.TC ---
Addendum entered and electronically signed by Delon Radford MD 01/08/24 15:32:
Patient seen and examined
Discussed with resident Dr. Lou
Impression/plan
Persistent MSSA bacteremia secondary to infected AV fistula hematoma
Status post washout with wound VAC in place.
Persistently elevated blood cultures while on vancomycin
Right chest tunneled catheter suspected infected through seeding.
For HD cath removal today
Continue IV vancomycin pending repeated blood culture for clearance.
She has persistent lower back pain with new compression fracture recently imaging. Check MRI of the L-spine rule out osteomyelitis/abscess. An ultrasound in addition to Tylenol for pain control.
Original Note:
Today's Communication/Plan
-
Continue Vancomycin.
Dialysis today
HD cath removal and line holiday
Temporary Catheter on Monday.
Repeat Blood culture x2.
Replace Catheter when Repeat BC negative
Assessment / Plan
Assessment / Plan
Impression:
Staph epi(coag negative staph) bacteremia 12/27 - 12/31
Right AV fistula infected hematoma/abscess with concern for possible source
Back pain status post fall. CT scan consistent with compression fracture
Conditions prior to admit
End-stage renal disease on hemodialysis Monday.
PKD
Right upper extremity AV graft requiring angioplasty 11/14
Essential hypertension, multidrug-resistant
CAD.
PAD
Anemia of chronic disease
Plan:
Staph epi bacteremia.
Aspirate culture from right upper extremity hematoma positive for staph epi confirming infected fluid collection as well as source of bacteremia.
Status post infected hematoma washout by vascular surgery on 01/03
Echocardiogram 01/01 preserved LVEF with no evidence of vegetation. Mild MR, moderate AAS, mild AI. Pulmonary hypertension with PASP 51 mmHg
Continue wound VAC
Continue vancomycin
Infectious disease input appreciated
End-stage renal disease
HD as per schedule
Patient has tunneled catheter placed prior to bacteremia clearance and may need exchange given possibility of seeding.
-Continue calcitriol
- K today 4.3, Hold Lokelma as Potassium in normal range
-Continue sevelamer
-Nephrology consulted for dialysis
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
-Continue Cinacalcet
Coronary artery disease
-Continue aspirin
Essential hypertension
-Continue Coreg, hydralazine, valsartan
Hypercholesterolemia
-Continue statin
GERD
-Continue Protonix, sucralfate
Smoker
-Smokes 2 cigarettes a day
Full code
DVT prophylaxis heparin
Renal diet
Episode of hypoglycemia
Resolved.
Anticipated Discharge: 24 - 48 hours
Subjective/Interval History
-
Date of Service: January 08, 2024
Objective Data
-
Labs:
Laboratory Results
01/08/24
08:01
WBC 4.9
Hgb 7.6 L
Hct 23.7 L
Plt Count 212
Sodium 131 L
Potassium 4.3
Chloride 99
Carbon Dioxide 26
BUN 46 H
Creatinine 8.1 H*
Glucose 85
Calcium 9.4
Total Bilirubin 0.5
AST 25
ALT 13
Alkaline Phosphatase 92
Vital Signs:
Vital Signs
Temp Pulse Resp BP Pulse Ox
98.3 F 88 16 151/78 100
01/08/24 07:12 01/08/24 07:12 01/08/24 07:12 01/08/24 07:12 01/08/24 07:12
I&O
01/07/24 01/08/24 01/09/24
06:59 06:59 06:59
Intake Total 700 / 700 1040 / 1040
Balance 700 / 700 1040 / 1040
Physical Exam
-
General: Other (patient in no acute distress )
HEENT: Normocephalic
Respiratory: Clear to Auscultation; Negative Wheezes or Rales
Cardiac: S1/S2
GI: Soft, Nontender, Nondistended and Normal Bowel Sounds
Musculoskeletal: Other (no erythema or swelling over the R arm fistula)
Skin: Warm
Psych: Calm
Data Reviewed
-
Labs: Labs Reviewed by me and Discussed with Physician
[2024-01-08] MEDS: VANCOCIN 150 IV (10:43)
--- NOTE | 2024-01-08 12:10 | WOUNDNOTE ---
R ARM (UPPER NEAR AXILLA)
--- NOTE | 2024-01-08 12:11 | WOUNDNOTE ---
R ARM (UPPER NEAR AXILLA)
--- NOTE | 2024-01-08 12:15 | WOUNDNOTE ---
WOC RN note: Patient admitted with weakness, falls. s/p I+D RUE infected hematoma, possible graft infection. Has wound vac.
See H&P for complete history.
PMH: ESRD on hemodialysis Monday, Monday, Monday, polycystic kidney disease, coronary artery disease, hypertension, hypercholesteremia, GERD.
Wound Location and type/assessment: Patient has RUE full thickness surgical wound near axilla to subcutaneous layer, pink, moderate ss drainage. No surrounding erythema.
Appetite: fair.
Pressure redistribution devices in place: [employer] Accumax. Patient if mobile.
Plan: RUE wound vac changed as ordered. Waiting for home ready vac approval from Delia Corbin from . Next vac dressing change due Mon. Patient current with [facility] as per CM note.
Will follow as needed.
[2024-01-08] MEDS: COREG 25 MG PO ×2 (12:19→20:33)
[2024-01-08] MEDS: ROCALTROL 0.5 MCG PO (12:20)
[2024-01-08] MEDS: SENSIPAR 60 MG PO (12:20)
[2024-01-08] MEDS: ASPIRIN ENTERIC COATED 325 MG PO (12:21)
[2024-01-08] MEDS: CARAFATE 1 GRAM PO ×2 (12:21→17:48)
[2024-01-08] MEDS: NEPHROCAP 1 CAPSULE PO (12:21)
[2024-01-08] MEDS: PROTONIX 40 MG PO (12:21)
[2024-01-08] MEDS: APRESOLINE 50 MG PO ×3 (12:21→22:38)
[2024-01-08] MEDS: RENVELA 1600 MG PO ×2 (12:22→17:48)
[2024-01-08] MEDS: HEPARIN 5000 UNITS SC ×2 (12:22→20:34)
[2024-01-08] MEDS: RENVELA PO (12:22)
[2024-01-08] MEDS: MIRALAX 17 GRAMS PO (12:22)
[2024-01-08 15:16] VITALS: BP 132/54
[2024-01-08] MEDS: ULTRAM 25 MG PO (15:49)
--- NOTE | 2024-01-08 15:58 | CM ---
CM reviewed chart, per wound care nurse, waiting for home ready vac approval. CM will update [facility] upon patients discharge, CM will continue to follow for discharge planning needs.
Plan; home with [facility] when stable.
--- NOTE | 2024-01-08 17:47 | WOUNDNOTE ---
WOC RN Note: Faxed Demo sheet to Delia Corbin from as requested by Delia.
[2024-01-08 20:32] VITALS: BP 152/62
[2024-01-08 22:33] VITALS: BP 122/49
[2024-01-08] MEDS: LIPITOR 10 MG PO (22:39)
[2024-01-08] MEDS: DIOVAN 320 MG PO (22:39)
[2024-01-09] MEDS: ULTRAM 25 MG PO ×2 (04:20→11:26)
[2024-01-09 06:00] VITALS: BMI 22.4
[2024-01-09] MEDS: TYLENOL 650 MG PO (06:27)
[2024-01-09 07:59] VITALS: BP 134/62
[2024-01-09] MEDS: RENVELA 1600 MG PO ×3 (08:29→17:55)
[2024-01-09] MEDS: COREG 25 MG PO ×2 (08:29→19:29)
[2024-01-09] MEDS: ASPIRIN ENTERIC COATED 325 MG PO (08:29)
[2024-01-09] MEDS: NEPHROCAP 1 CAPSULE PO (08:29)
[2024-01-09] MEDS: PROTONIX 40 MG PO (08:29)
[2024-01-09] MEDS: APRESOLINE 50 MG PO ×3 (08:30→21:43)
[2024-01-09] MEDS: MIRALAX PO (08:30)
[2024-01-09] MEDS: HEPARIN 5000 UNITS SC ×2 (08:30→19:30)
--- NOTE | 2024-01-09 10:08 | PHA.VAN.FU ---
Vancomycin Assessment / Plan
- Assessment
Hemodialysis Schedule: MWF
Last Hemodialysis performed: Mon 01/07
WBC's are: WNL
In the past 24 hrs, patient has been: Afebrile
- Dosing Plan
Continue: Vanc 750mg HD MWF
- Monitoring Plan
No level(s) ordered at this time: consider pre-HD level for Mon or Mon
- Follow Up
Pharmacy will continue to follow.
Vancomycin Follow UP
- -
Patient Age: 68
Patient Sex: Female
Vancomycin Day #: 12
Indication: Bacteremia
Requesting Provider: Dr. Klein
Pertinent Antimicrobial Allergies:
cefazolin - itching
Height / Weight:
Height 5 ft 4 in
Actual Weight 59.024 kg
Pertinent Past Medical History: ESRD on HD
- Vital Signs / Lab Results
Temp Pulse Resp BP Pulse Ox
97.7 F 58 16 134/62 98
01/09/24 07:59 01/09/24 07:59 01/09/24 07:59 01/09/24 07:59 01/09/24 07:59
Lab Results - Hematology
01/08/24
08:01
WBC 4.9
Lab Results - Chemistry
01/08/24
08:01
BUN 46 H
Creatinine 8.1 H*
Estimated Creat Clear 6
Albumin 3.1 L
Microbiology Results
01/04/24 18:41 Wound Culture - Preliminary
Fistula Staphylococcus epidermidis
Gram Stain - Preliminary
01/06/24 06:47 Blood Culture - Preliminary
Blood/Venous Staphylococcus epidermidis
Gram Stain - Final
01/05/24 13:14 Blood Culture - Preliminary
Blood/Venous Staphylococcus epidermidis
Gram Stain - Preliminary
01/08/24 08:01 Blood Culture - Preliminary
Blood/Venous No Growth in 24 hours- Final report to follow
01/07/24 07:08 Blood Culture - Preliminary
Blood/Venous No Growth in 48 hours- Final report to follow
01/04/24 15:01 Blood Culture - Preliminary
Blood/Venous No Growth in 4 days- Final report to follow
01/01/24 07:21 Blood Culture - Final
Blood/Venous Staphylococcus epidermidis
Gram Stain - Final
01/04/24 18:41 Anaerobic Culture - Preliminary
Fistula NO ANAEROBES ISOLATED
01/03/24 08:15 Blood Culture - Final
Blood/Venous No Growth - Final Report
01/02/24 09:26 Blood Culture - Final
Blood/Venous No Growth - Final Report
Therapeutic Drug Monitoring
Random Vancomycin 13.4 ug/ml 01/08/24 08:01
[2024-01-09] MEDS: CARAFATE 1 GRAM PO ×2 (10:14→16:52)
--- NOTE | 2024-01-09 10:49 | W.PN.HOSP.TC ---
Addendum entered and electronically signed by Delon Radford MD 01/09/24 14:34:
Seen and examined
Discussed with resident
Impression/plan:
Staphylococcal bacteremia secondary to infected AV fistula graft.
End-stage renal disease on hemodialysis.
Tunneled HD catheter removed on 01/07
IV vancomycin for total of 6 weeks of treatment.
Wound care/wound VAC as per vascular.
If AV graft not usable, will need temporary catheter placement
Repeated blood cultures negative to date.
Original Note:
Today's Communication/Plan
-
Temporary Cath placement
Hemodialysis
Assessment / Plan
Assessment / Plan
Impression:
Staph epi(coag negative staph) bacteremia 12/27 - 12/31
Right AV fistula infected hematoma/abscess with concern for possible source
Back pain status post fall. CT scan consistent with compression fracture
Conditions prior to admit
End-stage renal disease on hemodialysis Monday.
PKD
Right upper extremity AV graft requiring angioplasty 11/14
Essential hypertension, multidrug-resistant
CAD.
PAD
Anemia of chronic disease
Plan:
Staph epi bacteremia.
Aspirate culture from right upper extremity hematoma positive for staph epi confirming infected fluid collection as well as source of bacteremia.
Status post infected hematoma washout by vascular surgery on 01/03
Echocardiogram 01/01 preserved LVEF with no evidence of vegetation. Mild MR, moderate AAS, mild AI. Pulmonary hypertension with PASP 51 mmHg
Continue wound VAC
For HD cath removal
Continue IV vancomycin pending repeated blood culture for clearance.
Back pain status post fall.
CT scan consistent with compression fracture
MRI of the L-spine 01/08- No epidural fluid collection/abscess.
Tylenol for pain control.
End-stage renal disease
HD as per schedule
Patient has tunneled catheter placed prior to bacteremia clearance and may need exchange given possibility of seeding.
-Continue calcitriol
- K today 4.3, Hold Lokelma as Potassium in normal range
-Continue sevelamer
-Nephrology consulted for dialysis
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
-Continue Cinacalcet
Coronary artery disease
-Continue aspirin
Essential hypertension
-Continue Coreg, hydralazine, valsartan
Hypercholesterolemia
-Continue statin
GERD
-Continue Protonix, sucralfate
Smoker
-Smokes 2 cigarettes a day
Full code
DVT prophylaxis heparin
Renal diet
Episode of hypoglycemia
Resolved.
Anticipated Discharge: > 48 hours
Subjective/Interval History
-
Date of Service: January 09, 2024
Objective Data
-
Vital Signs:
Vital Signs
Temp Pulse Resp BP Pulse Ox
97.7 F 58 16 134/62 98
01/09/24 07:59 01/09/24 07:59 01/09/24 07:59 01/09/24 07:59 01/09/24 07:59
I&O
01/08/24 01/09/24 01/10/24
06:59 06:59 06:59
Intake Total 1040 / 1040 350 / 350
Balance 1040 / 1040 350 / 350
Physical Exam
-
General: Other (patient in no acute distress)
HEENT: Normocephalic
Respiratory: Clear to Auscultation; Negative Wheezes or Rales
Cardiac: S1/S2
GI: Soft, Nontender and Nondistended
Skin: Warm
Neuro: Awake, Alert, Oriented and AO x 3
Psych: Calm
[2024-01-09 10:55] VITALS: BP 108/65; BP 128/72; PULSE 80
--- NOTE | 2024-01-09 12:36 | W.PN.NEPH.PH ---
Today's Communication / Plan
-
Hd tomorrow after temp cath placement
Assessment/Plan
-
Impression:
Falls back pain multiple joint arthralgias, weakness failure to thrive
End-stage renal disease Monday schedule
Multidrug-resistant hypertension
Hypoglycemia
Secondary hyperparathyroid
Hyperphosphatemia
Coronary artery disease
History of polycystic kidney disease
Right upper extremity AV graft, previous history of
�� interventions.
Angioplasty in October 2022
Peripheral arterial disease
Plan:
Persistent bacteremia with MRSE: on vanco
01/06 adn 01/07 cultures negative at 48hrs
abx per ID, AVG US shows complex fluid collection in upper arm- s/p aspiration +wound vac
AVG remains hopefully will try accessing if ok with vascular
due to recurrent +ve bld cx -plan line holiday-d/w ID
strict renal diet and FR for hyponatremia
BP are better today with home meds except clonidine suggest diet indiscretion at home
potassium also in normal range, holding LOkelma
HD tomorrow,orders provided
-
-
Date of Service: January 09, 2024
CC / HPI / ROS
-
Chief Complaint:
ESRD on HD
History of Present Illness:
bld cx positive still
TDC placed during bacteremia
BP stable, k normal
no fever
Review of Systems:
feeling well
wants to go home
no cp or sob
Labs
-
Labs:
WBC 4.9 10^3/uL (4.8-10.8) 01/08/24 08:01
RBC 2.40 10^6/uL (4.20-5.40) L 01/08/24 08:01
Hgb 7.6 g/dL (12.0-16.0) L 01/08/24 08:01
Hct 23.7 % (37.0-47.0) L 01/08/24 08:01
Plt Count 212 10^3/uL (130-400) 01/08/24 08:01
Sodium 131 mmol/L (135-145) L 01/08/24 08:01
Potassium 4.3 mmol/L (3.5-5.1) 01/08/24 08:01
Chloride 99 mmol/L (98-107) 01/08/24 08:01
Carbon Dioxide 26 mmol/L (22-30) 01/08/24 08:01
BUN 46 mg/dl (7-17) H 01/08/24 08:01
Creatinine 8.1 mg/dL (0.6-1.0) H* 01/08/24 08:01
eGFR 4.92 01/08/24 08:01
Glucose 85 mg/dl (70-99) 01/08/24 08:01
Calcium 9.4 mg/dl (8.4-10.2) 01/08/24 08:01
Albumin 3.1 g/dl (3.5-5.0) L 01/08/24 08:01
Physical Exam
-
Vital Signs:
Vital Signs
Temp Pulse Resp BP Pulse Ox
97.7 F 58 16 134/62 98
01/09/24 07:59 01/09/24 07:59 01/09/24 07:59 01/09/24 07:59 01/09/24 07:59
Cardiovascular:: Regular rate and rhythm
Respiratory:: Bilateral: CTA
Lung Excursion:: Normal
Abdomen:: Nontender and Soft
Bowel Sounds:: Normal
Extremity Edema:: None: Bilateral:
Hwang Catheter: No
--- NOTE | 2024-01-09 12:44 | W.PN.ID1 ---
Date of Service
Date of Service: January 09, 2024
Today's Communication
on line holiday
will plan 6 weeks of IV antibiotics
fistula use per vascular
Assessment / Plan
S Epi (Coag neg staph) bacteremia sustained - 12/27-01/05
recent manipulation of RUE HD fistula with stent. Failed LUE fistula 10/12 - few strep in culture
RUE complex collection
Recommendations:
- body fluid from the abscess has also grown CONS (ie s epi) - s/p I&D 01/03
- 01/03 culture from the infected hematoma per OR note - not the fistula; positive for e spi as expected
- 01/04 and 01/05 blood cultures now also positive; line removed yesterday 01/07
- 01/06 blood cultures and 01/07 blood cultures no growth to date
- decisions re: use of fistula - per vascular surgery
- MRI lumbar spine most suggestive of post traumatic inflammation, cannot fully exclude discitis - will plan a 6 week course of treatment from clearance of blood cultures
- I do not think that the disc or bone was the primary source of infection - there is a very clear history of trauma, however it could have become secondarily infected particularly given the bacteremia
- Continue vancomycin
- appreciate vascular input
- follow clinically
Chief Complaint
-: Bacteremia
Subjective / Review of Systems
afebrile
bp stable
on line holiday
tolerating current therapies
MRI lumbar spine reviewed - patient reports a known fall during the snow a few weeks ago; fell onto her back then with new spinal tenderness
no signficiant change in the pain in this time
Vital Signs / Physical Exam
Vital Signs
Vital Signs
Temp Pulse Resp BP Pulse Ox
97.7 F 58 16 134/62 98
01/09/24 07:59 01/09/24 07:59 01/09/24 07:59 01/09/24 07:59 01/09/24 07:59
Physical Exam
Constitutional: No Acute Distress
Cardiovascular: Regular Rate and S1/S2; Negative Murmur or Rub
Pulmonary: Clear and Symmetric; Negative Wheezes or Rales
Gastrointestinal: Soft, Non Tender, Non Distended and Normal Bowel Sounds
Skin: Warm, Dry and Other (RUE fisutla no erythema, warmth, tenderness, there is a small thrill); Negative Rash or Jaundice
Objective Data
Lab Data
Lab Results
01/08/24 08:01
01/08/24 08:01
Estimated Creat Clear 6 ml/min 01/08/24 08:01
Total Bilirubin 0.5 mg/dl (0.2-1.3) 01/08/24 08:01
AST 25 U/L (14-36) 01/08/24 08:01
ALT 13 U/L (0-35) 01/08/24 08:01
Alkaline Phosphatase 92 U/L (38-126) 01/08/24 08:01
Most recent labs reviewed.
Micro Results:
01/06/24 06:47 Blood Culture - Preliminary
Blood/Venous Staphylococcus epidermidis
Gram Stain - Final
01/04/24 18:41 Wound Culture - Preliminary
Fistula Staphylococcus epidermidis
Gram Stain - Preliminary
01/05/24 13:14 Blood Culture - Preliminary
Blood/Venous Staphylococcus epidermidis
Gram Stain - Preliminary
01/08/24 08:01 Blood Culture - Preliminary
Blood/Venous No Growth in 24 hours- Final report to follow
01/09/24 07:09 Blood Culture - Pending
Blood/Venous
01/07/24 07:08 Blood Culture - Preliminary
Blood/Venous No Growth in 48 hours- Final report to follow
01/04/24 15:01 Blood Culture - Preliminary
Blood/Venous No Growth in 4 days- Final report to follow
01/01/24 07:21 Blood Culture - Final
Blood/Venous Staphylococcus epidermidis
Gram Stain - Final
01/04/24 18:41 Anaerobic Culture - Preliminary
Fistula NO ANAEROBES ISOLATED
01/03/24 08:15 Blood Culture - Final
Blood/Venous No Growth - Final Report
01/02/24 09:26 Blood Culture - Final
Blood/Venous No Growth - Final Report
01/02/24 15:31 Anaerobic Culture - Final
Fluid Staphylococcus epidermidis
01/02/24 15:37 Body Fluid Culture - Final
Fluid Staphylococcus epidermidis
Gram Stain - Final
12/31/23 06:15 Blood Culture - Final
Blood/Venous No Growth - Final Report
12/30/23 13:04 Blood Culture - Final
Blood/Venous Staphylococcus epidermidis
Gram Stain - Final
12/29/23 14:09 Blood Culture - Final
Blood/Venous Staphylococcus epidermidis
Gram Stain - Final
12/29/23 14:08 Blood Culture - Final
Blood/Venous Staphylococcus epidermidis
Gram Stain - Final
12/29/23 10:23 Blood Culture - Final
Blood/Venous Staphylococcus epidermidis
Gram Stain - Final
12/28/23 15:07 Blood Culture - Final
Blood/Venous Staphylococcus epidermidis
Gram Stain - Final
12/27/23 21:15 MRSA Screen - Final
Nose Staph aureus MRSA
12/27/23 13:33 Influenza Types A & B (SRINIVAS) - Final
Nasal Swab Negative for Influenza A & B, NAAT
Negative results must be combined with clinical observations
and patient history.
Nucleic Acid Amplification test (NAAT)performed on the
[employer] platform.
--- NOTE | 2024-01-09 13:35 | CM ---
Patient out of room this am when CM attempted to visit. Plan per chart review is home with wound vac possibly and [facility]. CM will continue to follow for discharge planning needs.
Plan; home with wound vac/and [facility]
[2024-01-09 15:05] VITALS: BP 153/61
[2024-01-09] MEDS: LIPITOR 10 MG PO (21:42)
[2024-01-09] MEDS: DIOVAN 320 MG PO (21:43)
[2024-01-09 22:51] VITALS: BP 126/54
[2024-01-10] MEDS: TYLENOL 650 MG PO ×2 (02:39→15:44)
[2024-01-10 06:00] VITALS: BMI 22.6
[2024-01-10] MEDS: CARAFATE 1 GRAM PO (07:13)
[2024-01-10 07:30] VITALS: BP 159/87
[2024-01-10] MEDS: SENSIPAR 60 MG PO (07:55)
[2024-01-10] MEDS: ROCALTROL 0.5 MCG PO (07:55)
[2024-01-10] MEDS: NEPHROCAP 1 CAPSULE PO (07:55)
[2024-01-10] MEDS: ASPIRIN ENTERIC COATED 325 MG PO (07:55)
[2024-01-10] MEDS: RENVELA 1600 MG PO (07:55)
[2024-01-10] MEDS: PROTONIX 40 MG PO (07:55)
[2024-01-10] MEDS: HEPARIN 5000 UNITS SC ×2 (08:00→19:16)
[2024-01-10 08:35] LABS: Hematocrit 26.1 % (37.0-47.0); Hemoglobin 8.3 g/dL (12.0-16.0)
[2024-01-10 08:48] LABS: Carbon Dioxide 27 mmol/L (22-30); Chloride 95 mmol/L (98-107); Potassium 4.1 mmol/L (3.5-5.1); Sodium 130 mmol/L (135-145)
--- NOTE | 2024-01-10 08:48 | WOUNDNOTE ---
WO RN note: Patient's RUE wound vac changed. Patient tolerated well. Wound dark pink, small-moderate ss drainage. No erythema. Sacral and heel skin intact. Patient reports a good appetite and moves self in bed. Patient for new hemodialysis catheter
today, s/p remove of HD catheter 01/08/24. Plan is home with VN. Patient stated plan is IV antibiotic during hemodialysis after discharge. Delia from [employer] notified this fha underwriter home vac script was invalid d/t no physician 1st name was on the script.
Notified Lillian Cha, gave Lillian the vac form who will ask Dr. Proctor to add his first name and initial next to it on the vac form as per Delia Corbin request from [employer]. Will fax amended home vac script when completed/received. Next vac dressing change
due on Monday.
--- NOTE | 2024-01-10 08:50 | WOUNDNOTE ---
R ARM (NEAR AXILLA)
--- NOTE | 2024-01-10 08:50 | WOUNDNOTE ---
R ARM (NEAR AXILLA)
[2024-01-10 08:59] VITALS: BP 124/72
[2024-01-10] MEDS: COREG 25 MG PO ×2 (09:00→19:16)
[2024-01-10] MEDS: APRESOLINE 50 MG PO ×2 (09:00→21:15)
[2024-01-10] MEDS: MIRALAX PO (09:03)
--- NOTE | 2024-01-10 09:08 | W.PN.ID1 ---
Date of Service
Date of Service: January 10, 2024
Today's Communication
- decisions re: use of fistula - per vascular surgery
- I do not think that the disc or bone was the primary source of infection - there is a very clear history of trauma, however it could have become secondarily infected particularly given the long duration of bacteremia
- Continue vancomycin through 02/16
- appreciate vascular input
Assessment / Plan
S Epi (Coag neg staph) bacteremia sustained - 12/27-01/05
recent manipulation of RUE HD fistula with stent. Failed LUE fistula 10/12 - few strep in culture
RUE complex collection
Recommendations:
- 01/06 blood cultures and 01/07 blood cultures no growth to date
- decisions re: use of fistula - per vascular surgery
- MRI lumbar spine most suggestive of post traumatic inflammation, cannot fully exclude discitis - will plan a 6 week course of treatment from clearance of blood cultures
- I do not think that the disc or bone was the primary source of infection - there is a very clear history of trauma, however it could have become secondarily infected particularly given the long duration of bacteremia
- Continue vancomycin through 02/16
- appreciate vascular input
- follow clinically
Chief Complaint
-: Bacteremia
Subjective / Review of Systems
afebrile
bp stable
minimal spinal tenderness
tolerating current therapies
Vital Signs / Physical Exam
Vital Signs
Vital Signs
Temp Pulse Resp BP Pulse Ox
97.8 F 46 18 159/87 100
01/10/24 07:30 01/10/24 07:30 01/10/24 07:30 01/10/24 07:30 01/10/24 07:30
Physical Exam
Constitutional: No Acute Distress
Cardiovascular: Regular Rate and S1/S2; Negative Murmur or Rub
Pulmonary: Clear and Symmetric; Negative Wheezes or Rales
Gastrointestinal: Soft, Non Tender, Non Distended and Normal Bowel Sounds
Musculoskeletal: Spinal Tenderness (mild lumbar spinal tenderness)
Skin: Warm and Dry; Negative Rash or Jaundice
Objective Data
Lab Data
Lab Results
01/10/24 08:17
01/10/24 08:17
Estimated Creat Clear 6 ml/min 01/08/24 08:01
Total Bilirubin 0.5 mg/dl (0.2-1.3) 01/08/24 08:01
AST 25 U/L (14-36) 01/08/24 08:01
ALT 13 U/L (0-35) 01/08/24 08:01
Alkaline Phosphatase 92 U/L (38-126) 01/08/24 08:01
Most recent labs reviewed.
Micro Results:
01/08/24 08:01 Blood Culture - Preliminary
Blood/Venous No Growth in 48 hours- Final report to follow
01/10/24 08:17 Blood Culture - Pending
Blood/Venous
01/09/24 07:09 Blood Culture - Preliminary
Blood/Venous No Growth in 24 hours- Final report to follow
01/07/24 07:08 Blood Culture - Preliminary
Blood/Venous No Growth in 72 hours- Final report to follow
01/04/24 15:01 Blood Culture - Final
Blood/Venous No Growth - Final Report
01/06/24 06:47 Blood Culture - Preliminary
Blood/Venous Staphylococcus epidermidis
Gram Stain - Final
01/04/24 18:41 Wound Culture - Preliminary
Fistula Staphylococcus epidermidis
Gram Stain - Preliminary
01/05/24 13:14 Blood Culture - Preliminary
Blood/Venous Staphylococcus epidermidis
Gram Stain - Preliminary
01/01/24 07:21 Blood Culture - Final
Blood/Venous Staphylococcus epidermidis
Gram Stain - Final
01/04/24 18:41 Anaerobic Culture - Preliminary
Fistula NO ANAEROBES ISOLATED
01/03/24 08:15 Blood Culture - Final
Blood/Venous No Growth - Final Report
01/02/24 09:26 Blood Culture - Final
Blood/Venous No Growth - Final Report
01/02/24 15:31 Anaerobic Culture - Final
Fluid Staphylococcus epidermidis
01/02/24 15:37 Body Fluid Culture - Final
Fluid Staphylococcus epidermidis
Gram Stain - Final
12/31/23 06:15 Blood Culture - Final
Blood/Venous No Growth - Final Report
12/30/23 13:04 Blood Culture - Final
Blood/Venous Staphylococcus epidermidis
Gram Stain - Final
12/29/23 14:09 Blood Culture - Final
Blood/Venous Staphylococcus epidermidis
Gram Stain - Final
12/29/23 14:08 Blood Culture - Final
Blood/Venous Staphylococcus epidermidis
Gram Stain - Final
12/29/23 10:23 Blood Culture - Final
Blood/Venous Staphylococcus epidermidis
Gram Stain - Final
12/28/23 15:07 Blood Culture - Final
Blood/Venous Staphylococcus epidermidis
Gram Stain - Final
12/27/23 21:15 MRSA Screen - Final
Nose Staph aureus MRSA
12/27/23 13:33 Influenza Types A & B (SRINIVAS) - Final
Nasal Swab Negative for Influenza A & B, NAAT
Negative results must be combined with clinical observations
and patient history.
Nucleic Acid Amplification test (NAAT)performed on the
[employer] platform.
Care Review
Plan reviewed with: Physician (Dr Proctor - patient requests to speak with )
--- NOTE | 2024-01-10 09:14 | WOUNDNOTE ---
R ARM (with photo flash)
--- NOTE | 2024-01-10 09:33 | CM ---
Addendum entered by Ariana Carson 01/10/24 12:43:
Patient seen bedside.
patient off floor for temporary dialysis cath.
HD today.
patient with wound vac to E.
[facility] updated re need for wound vac at d/c.
Plan: home with VN and outpatient HD at [facility].
Original Note:
Spoke with Cayden at [facility]
She was updated re need for IV anbx post HD - when d/c.
[facility]
Script faxed to [phone]
--- NOTE | 2024-01-10 09:34 | PHA.VAN.FU ---
Vancomycin Assessment / Plan
- Assessment
Hemodialysis Schedule: MWF
Last Hemodialysis performed: Mon 01/07
WBC's are: WNL
In the past 24 hrs, patient has been: Afebrile
- Dosing Plan
Continue: Vanc 750mg HD MWF
- Monitoring Plan
No level(s) ordered at this time: consider levels prior to HD Fri or Mon
- Follow Up
Pharmacy will continue to follow.
Vancomycin Follow UP
- -
Patient Age: 68
Patient Sex: Female
Vancomycin Day #: 13
Indication: Bacteremia
Requesting Provider: Dr. Klein
Pertinent Antimicrobial Allergies:
cefazolin - itching
Height / Weight:
Height 5 ft 4 in
Actual Weight 59.619 kg
Pertinent Past Medical History: ESRD on HD
- Vital Signs / Lab Results
Temp Pulse Resp BP Pulse Ox
97.8 F 75 18 124/72 100
01/10/24 07:30 01/10/24 08:59 01/10/24 08:59 01/10/24 08:59 01/10/24 08:59
Lab Results - Hematology
01/08/24
08:01
WBC 4.9
Lab Results - Chemistry
01/08/24
08:01
BUN 46 H
Creatinine 8.1 H*
Estimated Creat Clear 6
Albumin 3.1 L
Microbiology Results
01/08/24 08:01 Blood Culture - Preliminary
Blood/Venous No Growth in 48 hours- Final report to follow
01/09/24 07:09 Blood Culture - Preliminary
Blood/Venous No Growth in 24 hours- Final report to follow
01/07/24 07:08 Blood Culture - Preliminary
Blood/Venous No Growth in 72 hours- Final report to follow
01/04/24 15:01 Blood Culture - Final
Blood/Venous No Growth - Final Report
01/06/24 06:47 Blood Culture - Preliminary
Blood/Venous Staphylococcus epidermidis
Gram Stain - Final
01/04/24 18:41 Wound Culture - Preliminary
Fistula Staphylococcus epidermidis
Gram Stain - Preliminary
01/05/24 13:14 Blood Culture - Preliminary
Blood/Venous Staphylococcus epidermidis
Gram Stain - Preliminary
01/01/24 07:21 Blood Culture - Final
Blood/Venous Staphylococcus epidermidis
Gram Stain - Final
01/04/24 18:41 Anaerobic Culture - Preliminary
Fistula NO ANAEROBES ISOLATED
01/03/24 08:15 Blood Culture - Final
Blood/Venous No Growth - Final Report
Therapeutic Drug Monitoring
Random Vancomycin 13.4 ug/ml 01/08/24 08:01
--- NOTE | 2024-01-10 09:51 | PTCARENOTE ---
Patient noted to have an irregular HR and low rate on auscultation and VS machine. No complaints from patient at this time. EKG performed, notified. Patient placed on telemetry.
--- NOTE | 2024-01-10 10:24 | W.PN.VS ---
Addendum entered and electronically signed by Ronen Proctor MD 01/10/24 11:27:
Seen and examined with JEREMY Cha. Agree with findings as noted below. Right upper extremity VAC in place. AV graft site with good thrill. No fluctuance. No erythema. No tenderness. Blood cultures last 2 sets negative to date. Plan/as discussed
and noted below.
Original Note:
Today's Communication / Plan
-
Patient seen and examined at bedside with Dr. Ronen Proctor, below plan reviewed with attending.
Assessment/Plan
-
Assessment: 68-year-old female with end-stage renal disease and right arm edema secondary to the strong flow volumes through the graft following recent declot in the setting of a chronic central venous occlusion, no evidence to suggest graft
infection. Status post IR aspiration of right upper extremity collection that is consistent with chronic hematoma, however culture demonstrates Coagulase neg. staphylococcus. POD #6 Right upper extremity hematoma washout.
Plan:
Continue with wound VAC therapy to right upper extremity hematoma washout site
Consult to wound care
Can attempt arm compression and elevation to help with current right upper extremity edema
Subjective Data
-
Date of Service: January 10, 2024
Patient seen and examined at bedside, reports adequate pain control and compliance with wound vac. Denies nausea, vomiting, fever, and chills.
Objective Data
-
Vital Signs
Temp Pulse Resp BP Pulse Ox
97.8 F 75 18 124/72 100
01/10/24 07:30 01/10/24 08:59 01/10/24 08:59 01/10/24 08:59 01/10/24 08:59
Intake and Output
01/09/24 01/10/24 01/11/24
06:59 06:59 06:59
Intake Total 350 / 350 600 / 600
Balance 350 / 350 600 / 600
Intake:
Oral fluids 350 / 350 600 / 600
Other:
Number of approximated MODERATE 2
amounts of urine
Lab Results
01/10/24 08:17
01/10/24 08:17
Calcium 9.4 mg/dl (8.4-10.2) 01/08/24 08:
Magnesium 2.4 mg/dl (1.6-2.3) H 01/08/24 08:
Total Bilirubin 0.5 mg/dl (0.2-1.3) 01/08/24 08:
AST 25 U/L (14-36) 01/08/24 08:
ALT 13 U/L (0-35) 01/08/24 08:01
Alkaline Phosphatase 92 U/L (38-126) 01/08/24 08:01
Total Protein 6.1 g/dl (6.3-8.2) L 01/08/24 08:01
Albumin 3.1 g/dl (3.5-5.0) L 01/08/24 08:01
Physical Exam
-
General: NAD, in bed resting comfortably
Pulm: Reg effort. Room air
Abd: Nondistended and nontender
RUE: +1 right upper extremity edema, AV graft with positive thrill, right hand warm, motor and sensation intact, wound vac CDI and holding adequate suction
--- NOTE | 2024-01-10 10:36 | W.PN.HOSP.TC ---
Addendum entered and electronically signed by Delon Radford MD 01/10/24 14:05:
Patient seen and examined
Discussed with resident
Impression/plan:
Infected right upper extremity AV graft hematoma status post evacuation with wound VAC in place
Coag negative staph bacteremia
Infected tunneled HD catheter removed
Continue wound VAC
Continue IV antibiotics/vancomycin
For temporary catheter and HD today
Noted bradycardic
ECG with sinus rhythm at 76 with occasional PVC
Continue telemetry monitoring
Continue Coreg with caution
Original Note:
Today's Communication/Plan
-
Temp cath placement
HD
IV vancomycin for total of 6 weeks of treatment
Assessment / Plan
Assessment / Plan
Impression:
Staph epi(coag negative staph) bacteremia 12/27 - 12/31
Right AV fistula infected hematoma/abscess with concern for possible source
Back pain status post fall. CT scan consistent with compression fracture
Conditions prior to admit
End-stage renal disease on hemodialysis Monday.
PKD
Right upper extremity AV graft requiring angioplasty 11/14
Essential hypertension, multidrug-resistant
CAD.
PAD
Anemia of chronic disease
Plan:
Staph epi bacteremia.
Aspirate culture from right upper extremity hematoma positive for staph epi confirming infected fluid collection as well as source of bacteremia.
Status post infected hematoma washout by vascular surgery on 01/03
Echocardiogram 01/01 preserved LVEF with no evidence of vegetation. Mild MR, moderate AAS, mild AI. Pulmonary hypertension with PASP 51 mmHg
Wound care/wound VAC as per vascular.
Tunneled HD catheter removed on 01/07
IV vancomycin for total of 6 weeks of treatment.
Repeated blood cultures negative to date.
Back pain status post fall.
CT scan consistent with compression fracture
MRI of the L-spine 01/08- No epidural fluid collection/abscess.
Tylenol for pain control.
End-stage renal disease
HD as per schedule
Tunneled HD catheter removed on 01/07
Coronary artery disease
-Continue aspirin
Essential hypertension
-Continue Coreg, hydralazine, valsartan
Hypercholesterolemia
-Continue statin
GERD
-Continue Protonix, sucralfate
Smoker
-Smokes 2 cigarettes a day
Full code
DVT prophylaxis heparin
Renal diet
Episode of hypoglycemia
Resolved.
Anticipated Discharge: 24 - 48 hours
Subjective/Interval History
-
Date of Service: January 10, 2024
Objective Data
-
Labs:
Laboratory Results
01/10/24
08:17
Hgb 8.3 L
Hct 26.1 L
Sodium 130 L
Potassium 4.1
Chloride 95 L
Carbon Dioxide 27
Vital Signs:
Vital Signs
Temp Pulse Resp BP Pulse Ox
97.8 F 75 18 124/72 100
01/10/24 07:30 01/10/24 08:59 01/10/24 08:59 01/10/24 08:59 01/10/24 08:59
I&O
01/09/24 01/10/24 01/11/24
06:59 06:59 06:59
Intake Total 350 / 350 600 / 600
Balance 350 / 350 600 / 600
Physical Exam
-
General: No Apparent Distress
HEENT: Normocephalic
Respiratory: Clear to Auscultation; Negative Wheezes or Rales
Cardiac: Regular Rhythm and S1/S2
GI: Soft, Nontender, Nondistended and Normal Bowel Sounds
Musculoskeletal: No Cyanosis
Skin: Warm and Dry
Neuro: Awake, Alert, Oriented and AO x 3
Psych: Calm
[2024-01-10 11:30] VITALS: BP 142/49
[2024-01-10] MEDS: HEPARIN 500 UNITS IV ×2 (14:40→15:40)
--- NOTE | 2024-01-10 14:40 | WOUNDNOTE ---
WOC RN note: Delia Corbin from confirmed patient's ready home vac pump/equipment was approved. Home vac in this casualty underwriter's office and can bring up to patient on day of discharge.
[2024-01-10] MEDS: RETACRIT 10000 UNITS IV (15:39)
[2024-01-10] MEDS: RENVELA PO ×2 (15:45→17:51)
[2024-01-10 16:00] VITALS: BP 125/57
--- NOTE | 2024-01-10 16:06 | W.PN.NEPH.HD ---
Assessment
-
pt seen during HD
vitals stable
AVG did not function , now temp HD catheter in
eventual tunneled HD catheter when ok with ID
on vanc
d/w pt
Progress Note - Hemodialysis
-
Date of Service: January 10, 2024
Duration: 30 minutes and 3 hours
Potassium Bath: 2
Calcium Bath: 2.5
Opti-Dialyzer: 160
Ultrafiltration: Other (2-3kg)
Blood Flow: 400
Dialysate Flow: 600
Heparin: yesx2
EPO: [id number]
[2024-01-10] MEDS: MANNITOL 12.5 GRAMS IV (16:39)
[2024-01-10] MEDS: APRESOLINE PO (17:22)
[2024-01-10] MEDS: CARAFATE PO (17:24)
[2024-01-10] MEDS: HEPARIN 2500 UNITS INTRACATH (18:07)
[2024-01-10] MEDS: VANCOCIN 150 IV (18:46)
[2024-01-10] MEDS: ULTRAM 25 MG PO (19:20)
[2024-01-10 20:19] VITALS: BP 127/61
[2024-01-10] MEDS: DIOVAN 320 MG PO (21:14)
[2024-01-10] MEDS: LIPITOR 10 MG PO (21:15)
[2024-01-10 23:37] VITALS: BP 135/51
[2024-01-11 03:30] VITALS: BP 150/67
[2024-01-11 04:30] VITALS: BP 152/60
[2024-01-11 05:53] VITALS: BMI 22.1
[2024-01-11] MEDS: CARAFATE 1 GRAM PO ×2 (06:25→16:35)
[2024-01-11 07:30] VITALS: BP 171/62
--- NOTE | 2024-01-11 08:40 | PHA.VAN.FU ---
Vancomycin Assessment / Plan
- Assessment
Hemodialysis Schedule: MWF
Last Hemodialysis performed: 01/09
- Dosing Plan
Continue: Vanc 750mg HD MWF
- Monitoring Plan
Random Level: 01/11 0600
- Follow Up
Pharmacy will continue to follow.
Vancomycin Follow UP
- -
Patient Age: 68
Patient Sex: Female
Vancomycin Day #: 14
Indication: Bacteremia
Requesting Provider: Dr. Klein
Pertinent Antimicrobial Allergies:
cefazolin - itching
Height / Weight:
Height 5 ft 4 in
Actual Weight 58.315 kg
Pertinent Past Medical History: ESRD on HD
- Vital Signs / Lab Results
Temp Pulse Resp BP Pulse Ox
98.5 F 83 18 171/62 100
01/11/24 07:30 01/11/24 07:30 01/11/24 07:30 01/11/24 07:30 01/11/24 07:30
Lab Results - Hematology
01/08/24
08:01
WBC 4.9
Lab Results - Chemistry
01/08/24
08:01
BUN 46 H
Creatinine 8.1 H*
Estimated Creat Clear 6
Albumin 3.1 L
Microbiology Results
01/08/24 08:01 Blood Culture - Preliminary
Blood/Venous No Growth in 72 hours- Final report to follow
01/10/24 08:17 Blood Culture - Preliminary
Blood/Venous No Growth in 24 hours- Final report to follow
01/09/24 07:09 Blood Culture - Preliminary
Blood/Venous No Growth in 48 hours- Final report to follow
01/07/24 07:08 Blood Culture - Preliminary
Blood/Venous No Growth in 4 days- Final report to follow
01/04/24 18:41 Wound Culture - Final
Fistula Staphylococcus epidermidis
Gram Stain - Final
01/04/24 18:41 Anaerobic Culture - Final
Fistula NO ANAEROBES ISOLATED
01/06/24 06:47 Blood Culture - Final
Blood/Venous Staphylococcus epidermidis
Gram Stain - Final
01/04/24 15:01 Blood Culture - Final
Blood/Venous No Growth - Final Report
01/05/24 13:14 Blood Culture - Preliminary
Blood/Venous Staphylococcus epidermidis
Gram Stain - Preliminary
Therapeutic Drug Monitoring
Random Vancomycin 13.4 ug/ml 01/08/24 08:01
[2024-01-11] MEDS: ASPIRIN ENTERIC COATED 325 MG PO (09:32)
[2024-01-11] MEDS: PROTONIX 40 MG PO (09:32)
[2024-01-11] MEDS: MIRALAX 17 GRAMS PO (09:32)
[2024-01-11] MEDS: RENVELA 1600 MG PO ×3 (09:32→16:28)
[2024-01-11] MEDS: COREG 25 MG PO ×2 (09:33→19:33)
[2024-01-11] MEDS: NEPHROCAP 1 CAPSULE PO (09:33)
[2024-01-11] MEDS: HEPARIN 5000 UNITS SC ×2 (09:33→19:34)
[2024-01-11] MEDS: APRESOLINE 50 MG PO ×3 (09:33→21:50)
--- NOTE | 2024-01-11 10:41 | W.PN.HOSP.TC ---
Addendum entered and electronically signed by Delon Radford MD 01/11/24 15:14:
Patient seen and examined
Discussed with resident and nephrology
MSSA bacteremia with infected AV fistula graft status post washout with wound VAC in place
Blood culture cleared.
L-spine imaging was not consistent with infectious process and likely traumatic with compression fracture.
Remains on IV vancomycin.
Let us post catheter holiday with temporary HD catheter in place to be exchanged tunneled prior to discharge.
N.p.o. postmidnight.
Original Note:
Today's Communication/Plan
-
Temp HD catheter in
Continue Vancomycin
HD today
Discharge home today.
Assessment / Plan
Assessment / Plan
Impression:
Staph epi(coag negative staph) bacteremia 12/27 - 12/31
Right AV fistula infected hematoma/abscess with concern for possible source
Back pain status post fall. CT scan consistent with compression fracture
Conditions prior to admit
End-stage renal disease on hemodialysis Monday.
PKD
Right upper extremity AV graft requiring angioplasty 11/14
Essential hypertension, multidrug-resistant
CAD.
PAD
Anemia of chronic disease
Plan:
Staph epi bacteremia.
Aspirate culture from right upper extremity hematoma positive for staph epi confirming infected fluid collection as well as source of bacteremia.
Status post infected hematoma washout by vascular surgery on 01/03
Echocardiogram 01/01 preserved LVEF with no evidence of vegetation. Mild MR, moderate AAS, mild AI. Pulmonary hypertension with PASP 51 mmHg
Wound care/wound VAC as per vascular.
Tunneled HD catheter removed on 01/07
IV vancomycin for total of 6 weeks of treatment.
Repeated blood cultures negative to date.
Back pain status post fall.
CT scan consistent with compression fracture
MRI of the L-spine 01/08- No epidural fluid collection/abscess.
Tylenol for pain control.
End-stage renal disease
HD as per schedule
Tunneled HD catheter removed on 01/07
Coronary artery disease
-Continue aspirin
Essential hypertension
-Continue Coreg, hydralazine, valsartan
Hypercholesterolemia
-Continue statin
GERD
-Continue Protonix, sucralfate
Smoker
-Smokes 2 cigarettes a day
Full code
DVT prophylaxis heparin
Renal diet
Episode of hypoglycemia
Resolved.
Anticipated Discharge: Today
Subjective/Interval History
-
Date of Service: January 11, 2024
Objective Data
-
Vital Signs:
Vital Signs
Temp Pulse Resp BP Pulse Ox
98.5 F 83 18 171/62 100
01/11/24 07:30 01/11/24 07:30 01/11/24 07:30 01/11/24 07:30 01/11/24 07:30
I&O
01/10/24 01/11/24 01/12/24
06:59 06:59 06:59
Intake Total 600 / 600 660 / 660
Balance 600 / 600 660 / 660
Physical Exam
-
General: No Apparent Distress
HEENT: Normocephalic
Respiratory: Clear to Auscultation; Negative Wheezes or Rales
Cardiac: Regular Rhythm and S1/S2
GI: Soft, Nontender, Nondistended and Normal Bowel Sounds
Musculoskeletal: No Cyanosis
Skin: Warm
Neuro: Awake, Alert, Oriented and AO x 3
Psych: Calm
[2024-01-11] MEDS: TYLENOL 650 MG PO (10:52)
[2024-01-11 11:30] VITALS: BP 130/54
--- NOTE | 2024-01-11 11:31 | CM ---
Addendum entered by Ariana Carson 01/11/24 15:33:
Spoke with Loretta at [facility] [phone], updated re tunneled cath scheduled for tomorrow.
Next outpatient HD will be scheduled for Monday 5:30 am.
Addendum entered by Ariana Carson 01/11/24 15:17:
Patient for tunneled catheter prior to d/c.
Addendum entered by Ariana Carson 01/11/24 11:56:
IMM completed.
Plan: home with VN, wound vac and outpatient HD, sister will transport.
[facility]

Original Note:
Spoke with Loretta from [facility]
HD scheduled - 5:30 am.
Will re-fax script to fax# [phone] (verified)
Loretta aware of d/c scheduled for today and patient has wound vac RUE and temporary Dialysis catheter.
Loretta will notify this movie writer after reviewing with Marina if there are any questions or of script is not received.
[facility] updated re d/c date today.
--- NOTE | 2024-01-11 13:36 | VNURNOTE ---
[facility] referral updated in [facility] after review of chart.
--- NOTE | 2024-01-11 14:38 | WOUNDNOTE ---
WO RN note: Patient for discharge today. Switched patient to the home ready vac serial number [id number]. Patient signed proof of deliver foam and was faxed to . Patient and sister instructed how to turn on and off the home vac, how to change the
home vac canister and to call or 15/05 for vac questions/problems. Patient aware if the vac suction fails for longer than 2 hrs, the vac dressing should be removed and saline moistened gauze applied until VN can apply a new dressing. Instructed
reinforcing dressing with strip of Tegaderm if an air leak occurs. Patient instructed if mari bleeding occurs, to clamp tubing, turn off vac pump and call 911. Wound dressings in room along with home vac pump, home vac canisters and vac dressings.
Patient home vac teaching pamphlet with VAC supplies. Patient's sacrum and heels intact. Sister to take patient home when discharged.
--- NOTE | 2024-01-11 14:47 | W.PN.NEPH.PH ---
Addendum entered and electronically signed by Kennedi Purdy MD 01/11/24 14:51:
she will cont f/u with vascular for wound vac and access
Original Note:
Today's Communication / Plan
-
see plan
Assessment/Plan
-
Impression:
Falls back pain multiple joint arthralgias, weakness failure to thrive
End-stage renal disease Monday schedule
Multidrug-resistant hypertension
Hypoglycemia
Secondary hyperparathyroid
Hyperphosphatemia
Coronary artery disease
History of polycystic kidney disease
Right upper extremity AV graft, previous history of
�� interventions.
Angioplasty in October 2022
Peripheral arterial disease
Plan:
Persistent bacteremia with MRSE: on vanco
cultures negative and need Vanc till 02/16
could not access AVG-non functioning
had temp catheter yesterday, need to change to tunneled catheter before she leaves today
resume all home meds at d/c
d/w pt and sister at bedside
d/w primary
d/w nursing
-
-
Date of Service: January 11, 2024
CC / HPI / ROS
-
Chief Complaint:
ESRD on HD
History of Present Illness:
bld cx negative
BP stable, k normal
Review of Systems:
feeling well
wants to go home
no fever
Labs
-
Labs:
WBC 4.9 10^3/uL (4.8-10.8) 01/08/24 08:01
RBC 2.40 10^6/uL (4.20-5.40) L 01/08/24 08:01
Hgb 8.3 g/dL (12.0-16.0) L 01/10/24 08:17
Hct 26.1 % (37.0-47.0) L 01/10/24 08:17
Plt Count 212 10^3/uL (130-400) 01/08/24 08:01
Sodium 130 mmol/L (135-145) L 01/10/24 08:17
Potassium 4.1 mmol/L (3.5-5.1) 01/10/24 08:17
Chloride 95 mmol/L (98-107) L 01/10/24 08:17
Carbon Dioxide 27 mmol/L (22-30) 01/10/24 08:17
BUN 46 mg/dl (7-17) H 01/08/24 08:01
Creatinine 8.1 mg/dL (0.6-1.0) H* 01/08/24 08:01
eGFR 4.92 01/08/24 08:01
Glucose 85 mg/dl (70-99) 01/08/24 08:01
Calcium 9.4 mg/dl (8.4-10.2) 01/08/24 08:01
Albumin 3.1 g/dl (3.5-5.0) L 01/08/24 08:01
Physical Exam
-
Vital Signs:
Vital Signs
Temp Pulse Resp BP Pulse Ox
98.2 F 81 18 130/54 100
01/11/24 11:30 01/11/24 11:30 01/11/24 11:30 01/11/24 11:30 01/11/24 11:30
Other Findings::
appears comfortable in chair
skin no rash
no edema
chr edema of rt UE
normal respiration
speech clear
--- NOTE | 2024-01-11 14:54 | PN.CDI ---
CDI
- -
CDI:
Physician Documentation Request
Admit Date: 01/01/24 07:20
Dear Doctor Malina,
Please review the following and provide your response in the progress notes.
Clinical Indicators:
- 01/10 PN 'CT scan consistent with compression fracture' without specificity of location
- 01/08 Lumbar/spine MRI 'Mild compression fractures at the superior endplate of L3 and inferior endplate of L2'
Please clarify the location of the compression fractures in your Progress note or DC Summary
Use of terms such as suspected, likely, concern for, or probable (associated with a specific diagnosis that is being evaluated, monitored, or treated as if it exists) are acceptable and can be coded in the inpatient setting, when documented at the
time of discharge.
Thank you,
Kendra Mena RN
CDI Specialist
Please use your independent medical judgment in providing your response.
--- NOTE | 2024-01-11 15:32 | PTCARENOTE ---
Notified provider that the patient would need to be dialyzed here because her appointment tomorrow is set for 0530 and the patient will still be in the hospital.
[2024-01-11] MEDS: ULTRAM 25 MG PO (16:25)
--- NOTE | 2024-01-11 17:07 | W.PN.ID1 ---
Date of Service
Date of Service: January 11, 2024
Today's Communication
- Continue vancomycin through 02/16
Assessment / Plan
S Epi (Coag neg staph) bacteremia sustained - 12/27-01/05
recent manipulation of RUE HD fistula with stent. Failed LUE fistula 10/12 - few strep in culture
RUE complex collection
Recommendations:
- 01/06 blood cultures and 01/07 blood cultures no growth to date
- MRI lumbar spine most suggestive of post traumatic inflammation, cannot fully exclude discitis - will plan a 6 week course of treatment from clearance of blood cultures
- I do not think that the disc or bone was the primary source of infection - there is a very clear history of trauma, however it could have become secondarily infected particularly given the long duration of bacteremia
- Continue vancomycin through 02/16
- appreciate vascular input
- follow up with nephrology
Chief Complaint
-: Bacteremia
Subjective / Review of Systems
afebrile
bp stable
tolerating current therapies
minimal back pain
Vital Signs / Physical Exam
Vital Signs
Vital Signs
Temp Pulse Resp BP Pulse Ox
98.2 F 81 18 130/54 100
01/11/24 11:30 01/11/24 11:30 01/11/24 11:30 01/11/24 11:30 01/11/24 11:30
Physical Exam
Constitutional: No Acute Distress
Cardiovascular: Regular Rate and S1/S2; Negative Murmur or Rub
Pulmonary: Clear and Symmetric; Negative Wheezes or Rales
Gastrointestinal: Soft, Non Tender, Non Distended and Normal Bowel Sounds
Skin: Warm and Dry; Negative Rash or Jaundice
Wound: Other (wound vac in place, right fistula no erythema, warmth, tenderness or drainage)
Objective Data
Lab Data
Lab Results
01/10/24 08:17
01/10/24 08:17
Estimated Creat Clear 6 ml/min 01/08/24 08:01
Total Bilirubin 0.5 mg/dl (0.2-1.3) 01/08/24 08:01
AST 25 U/L (14-36) 01/08/24 08:01
ALT 13 U/L (0-35) 01/08/24 08:01
Alkaline Phosphatase 92 U/L (38-126) 01/08/24 08:01
Most recent labs reviewed.
Micro Results:
01/08/24 08:01 Blood Culture - Preliminary
Blood/Venous No Growth in 72 hours- Final report to follow
01/10/24 08:17 Blood Culture - Preliminary
Blood/Venous No Growth in 24 hours- Final report to follow
01/09/24 07:09 Blood Culture - Preliminary
Blood/Venous No Growth in 48 hours- Final report to follow
01/07/24 07:08 Blood Culture - Preliminary
Blood/Venous No Growth in 4 days- Final report to follow
01/04/24 18:41 Wound Culture - Final
Fistula Staphylococcus epidermidis
Gram Stain - Final
01/04/24 18:41 Anaerobic Culture - Final
Fistula NO ANAEROBES ISOLATED
01/06/24 06:47 Blood Culture - Final
Blood/Venous Staphylococcus epidermidis
Gram Stain - Final
01/04/24 15:01 Blood Culture - Final
Blood/Venous No Growth - Final Report
01/05/24 13:14 Blood Culture - Preliminary
Blood/Venous Staphylococcus epidermidis
Gram Stain - Preliminary
01/01/24 07:21 Blood Culture - Final
Blood/Venous Staphylococcus epidermidis
Gram Stain - Final
01/03/24 08:15 Blood Culture - Final
Blood/Venous No Growth - Final Report
01/02/24 09:26 Blood Culture - Final
Blood/Venous No Growth - Final Report
01/02/24 15:31 Anaerobic Culture - Final
Fluid Staphylococcus epidermidis
01/02/24 15:37 Body Fluid Culture - Final
Fluid Staphylococcus epidermidis
Gram Stain - Final
12/31/23 06:15 Blood Culture - Final
Blood/Venous No Growth - Final Report
12/30/23 13:04 Blood Culture - Final
Blood/Venous Staphylococcus epidermidis
Gram Stain - Final
12/29/23 14:09 Blood Culture - Final
Blood/Venous Staphylococcus epidermidis
Gram Stain - Final
12/29/23 14:08 Blood Culture - Final
Blood/Venous Staphylococcus epidermidis
Gram Stain - Final
12/29/23 10:23 Blood Culture - Final
Blood/Venous Staphylococcus epidermidis
Gram Stain - Final
12/28/23 15:07 Blood Culture - Final
Blood/Venous Staphylococcus epidermidis
Gram Stain - Final
12/27/23 21:15 MRSA Screen - Final
Nose Staph aureus MRSA
12/27/23 13:33 Influenza Types A & B (SRINIVAS) - Final
Nasal Swab Negative for Influenza A & B, NAAT
Negative results must be combined with clinical observations
and patient history.
Nucleic Acid Amplification test (NAAT)performed on the
[email or web address] platform.
[2024-01-11 19:34] VITALS: BP 144/58
[2024-01-11] MEDS: TUMS 1 TABLET PO (20:29)
[2024-01-11] MEDS: DIOVAN 320 MG PO (21:50)
[2024-01-11] MEDS: LIPITOR 10 MG PO (21:50)
[2024-01-11 22:59] VITALS: BP 134/52
[2024-01-12] VITALS (7 sets, daily range): BP systolic 76–156; BP diastolic 53–62; BMI 22.0
[2024-01-12] MEDS: TYLENOL 650 MG PO (05:32)
[2024-01-12] MEDS: CARAFATE 1 GRAM PO (06:08)
--- NOTE | 2024-01-12 07:45 | WOUNDNOTE ---
R ARM (NEAR AXILLA)
--- NOTE | 2024-01-12 07:48 | WOUNDNOTE ---
WO RN note: Patient R arm wound vac changed and is connected to her home vac. Patient tolerated well. Wound about the same as Monday. No surrounding erythema. Small ss drainage. Updated RN Melissa who is aware to [facility] in
soiled utility if patient is discharged today. Patient is receiving dialysis this morning then is supposed to go to IR for a tunneled cath as per HD nurse Hilary. Patient stated she has no questions about the home vac that was instructed to her
yesterday. Next vac change due Monday.
[2024-01-12] MEDS: RENVELA PO ×3 (08:29→15:33)
[2024-01-12] MEDS: HEPARIN 500 UNITS IV ×2 (08:37→08:38)
[2024-01-12] MEDS: RETACRIT 10000 UNITS IV (08:38)
--- NOTE | 2024-01-12 08:55 | PHA.VAN.FU ---
Vancomycin Assessment / Plan
- Assessment
Hemodialysis Schedule: MWF
Last Hemodialysis performed: 01/09
In the past 24 hrs, patient has been: Afebrile
- Assessment - Therapeutic Drug Monitoring
Random Level: pre-HD level = 18
- Dosing Plan
Continue: Vanc 750mg HD MWF
- Monitoring Plan
No level(s) ordered at this time: levels remain appropriate, consider weekly levels prior to HD
- Follow Up
Pharmacy will continue to follow.
Vancomycin Follow UP
- -
Patient Age: 68
Patient Sex: Female
Vancomycin Day #: 15
Indication: Bacteremia
Requesting Provider: Dr. Klein
Pertinent Antimicrobial Allergies:
cefazolin - itching
Height / Weight:
Height 5 ft 4 in
Actual Weight 58.202 kg
Pertinent Past Medical History: ESRD on HD
- Vital Signs / Lab Results
Temp Pulse Resp BP Pulse Ox
98.1 F 75 16 156/62 100
01/12/24 08:08 01/12/24 08:08 01/12/24 08:08 01/12/24 08:08 01/12/24 08:08
Microbiology Results
01/08/24 08:01 Blood Culture - Preliminary
Blood/Venous No Growth in 4 days- Final report to follow
01/10/24 08:17 Blood Culture - Preliminary
Blood/Venous No Growth in 48 hours- Final report to follow
01/09/24 07:09 Blood Culture - Preliminary
Blood/Venous No Growth in 72 hours- Final report to follow
01/07/24 07:08 Blood Culture - Final
Blood/Venous No Growth - Final Report
01/04/24 18:41 Wound Culture - Final
Fistula Staphylococcus epidermidis
Gram Stain - Final
01/04/24 18:41 Anaerobic Culture - Final
Fistula NO ANAEROBES ISOLATED
01/06/24 06:47 Blood Culture - Final
Blood/Venous Staphylococcus epidermidis
Gram Stain - Final
Therapeutic Drug Monitoring
Random Vancomycin 13.4 ug/ml 01/08/24 08:01
[2024-01-12 09:00] LABS: Hematocrit 25.4 % (37.0-47.0)
[2024-01-12 09:18] LABS: Vancomycin Random 18.2 ug/ml
[2024-01-12 09:19] LABS: Blood Urea Nitrogen 33 mg/dl (7-17); Carbon Dioxide 27 mmol/L (22-30); Chloride 95 mmol/L (98-107); Estimated Creatinine Clearance 7 ml/min; Glucose 89 mg/dl (70-99); Potassium 4.3 mmol/L (3.5-5.1); Sodium 130 mmol/L (135-145); eGFR 6.07
--- NOTE | 2024-01-12 09:21 | W.PN.HOSP.TC ---
Addendum entered and electronically signed by Delon Radford MD 01/25/24 15:29:
Endplate of L3 and inferior endplate of L2 compression fracture as an incidental finding on imaging
Original Note:
Today's Communication/Plan
-
Temporary HD catheter yesterday
change to tunneled catheter before discharge
Hemodialysis today
IV vancomycin through 02/16
Assessment / Plan
Assessment / Plan
Impression:
Staph epi(coag negative staph) bacteremia 12/27 - 12/31
Right AV fistula infected hematoma/abscess with concern for possible source
Back pain status post fall. CT scan consistent with compression fracture
Conditions prior to admit
End-stage renal disease on hemodialysis Monday.
PKD
Right upper extremity AV graft requiring angioplasty 11/14
Essential hypertension, multidrug-resistant
CAD.
PAD
Anemia of chronic disease
Plan:
Staph epi bacteremia.
Aspirate culture from right upper extremity hematoma positive for staph epi confirming infected fluid collection as well as source of bacteremia.
Status post infected hematoma washout by vascular surgery on 01/03
Echocardiogram 01/01 preserved LVEF with no evidence of vegetation. Mild MR, moderate AAS, mild AI. Pulmonary hypertension with PASP 51 mmHg
Wound care/wound VAC as per vascular.
Infected tunneled HD catheter removed on 01/07
IV vancomycin through 02/16
Blood culture cleared.
Back pain status post fall.
CT scan consistent with compression fracture
L-spine imaging was not consistent with infectious process and likely traumatic with compression fracture.
End-stage renal disease
HD as per schedule
Infected tunneled HD catheter removed on 01/07
Coronary artery disease
-Continue aspirin
Essential hypertension
-Continue Coreg, hydralazine, valsartan
Hypercholesterolemia
-Continue statin
GERD
-Continue Protonix, sucralfate
Smoker
-Smokes 2 cigarettes a day
Full code
DVT prophylaxis heparin
Renal diet
Episode of hypoglycemia
Resolved.
Anticipated Discharge: Within 24 hours
Subjective/Interval History
-
Date of Service: January 12, 2024
Objective Data
-
Labs:
Laboratory Results
01/12/24
08:03
Hgb 8.0 L
Hct 25.4 L
Sodium 130 L
Potassium 4.3
Chloride 95 L
Carbon Dioxide 27
BUN 33 H
Creatinine 6.8 H*
Glucose 89
Calcium 10.0
Vital Signs:
Vital Signs
Temp Pulse Resp BP Pulse Ox
98.1 F 75 16 156/62 100
01/12/24 08:08 01/12/24 08:08 01/12/24 08:08 01/12/24 08:08 01/12/24 08:08
I&O
01/11/24 01/12/24 01/13/24
06:59 06:59 06:59
Intake Total 660 / 660 660 / 660
Balance 660 / 660 660 / 660
Physical Exam
-
General: No Apparent Distress
HEENT: Normocephalic
Respiratory: Clear to Auscultation; Negative Wheezes or Rales
Cardiac: Regular Rhythm and S1/S2
GI: Soft, Nontender and Nondistended
Musculoskeletal: No Cyanosis
Skin: Warm
Neuro: Awake, Alert, Oriented and AO x 3
Psych: Calm
--- NOTE | 2024-01-12 10:17 | W.PN.NEPH.HD ---
Assessment
-
Patient seen on HD
sbp 135 at current u/f
vanco until 02/16
HD via temp catheter today
for tunneled HD catheter today then d/c
Progress Note - Hemodialysis
-
Date of Service: January 12, 2024
Duration: 30 minutes and 3 hours
Potassium Bath: 2
Calcium Bath: 2.5
Opti-Dialyzer: 160
Ultrafiltration: Other (2kg)
Blood Flow: 400
Dialysate Flow: 600
Heparin: 500 times two
EPO: 10K
[2024-01-12] MEDS: VANCOCIN 150 IV (10:26)
[2024-01-12] MEDS: HEPARIN 5000 UNITS SC (10:40)
[2024-01-12] MEDS: HEPARIN 2100 UNITS INTRACATH (11:17)
--- NOTE | 2024-01-12 11:18 | CM ---
Patient for HD, tunneled cath today. Patient also for discharge. CM will review IMM with patient and confirm discharge home with family
--- NOTE | 2024-01-12 11:26 | CM ---
Patient seen at bedside, IMM signed and on chart yesterday. Patient finishing up HD and for a tunneled cath placement. Patient states her sister is transporting her home when called. Patient has transportation home and for HD. CM will continue to
follow for discharge planning needs.
Plan; home with HD follow up and [facility].
[2024-01-12] MEDS: ULTRAM 25 MG PO (11:54)
[2024-01-12] MEDS: MIRALAX PO (12:24)
[2024-01-12] MEDS: ROCALTROL 0.5 MCG PO (12:25)
[2024-01-12] MEDS: ASPIRIN ENTERIC COATED 325 MG PO (12:25)
[2024-01-12] MEDS: SENSIPAR 60 MG PO (12:25)
[2024-01-12] MEDS: NEPHROCAP 1 CAPSULE PO (12:25)
[2024-01-12] MEDS: APRESOLINE 50 MG PO ×2 (12:25→15:32)
[2024-01-12] MEDS: COREG 25 MG PO (12:25)
[2024-01-12] MEDS: PROTONIX 40 MG PO (12:25)
[2024-01-12] MEDS: CARAFATE PO (15:32)
== END 2024-01-12 17:02 | disposition home health service (06) | DRG 314 ==
LOC: 4 WEST ACU 07:20
PROVIDERS: Internal Medicine; Internal Medicine Infectious Disease; Nurse Practitioner; Nurse Practitioner Acute Care; Radiology Diagnostic Radiology; Radiology Vascular & Interventional Radiology; Specialist; Student in an Organized Health Care Education/Training Program; Surgery Vascular Surgery; ADMITTING PHYSICIAN Hospitalist; ATTENDING PHYSICIAN Internal Medicine; EMERGENCY PHYSICIAN Emergency Medicine; FAMILY PHYSICIAN Physician Assistant Medical; OTHER PHYSICIAN Surgery Vascular Surgery
PROC: 05HN33Z Insertion of Infusion Device into Left Internal Jugular Vein, Percutaneous Approach (ICD-10-PCS; 2023-12-29)
PROC: 0H9BXZX Drainage of Right Upper Arm Skin, External Approach, Diagnostic (ICD-10-PCS; 2024-01-02)
PROC: 0H9BXZZ Drainage of Right Upper Arm Skin, External Approach (ICD-10-PCS; 2024-01-04)
PROC: 0JPT3XZ Removal of Tunneled Vascular Access Device from Trunk Subcutaneous Tissue and Fascia, Percutaneous Approach (ICD-10-PCS; 2024-01-09)
PROC: 0JH63XZ Insertion of Tunneled Vascular Access Device into Chest Subcutaneous Tissue and Fascia, Percutaneous Approach (ICD-10-PCS; 2024-01-12)
PROC: 05HM33Z Insertion of Infusion Device into Right Internal Jugular Vein, Percutaneous Approach (ICD-10-PCS; 2024-01-12)
DX: T82.7XXA Infection and inflammatory reaction due to other cardiac and vascular devices, implants and grafts, initial encounter (principal); N18.6 End stage renal disease; Q61.3 Polycystic kidney, unspecified; I12.0 Hypertensive chronic kidney disease with stage 5 chronic kidney disease or end stage renal disease; R78.81 Bacteremia; M48.56XA Collapsed vertebra, not elsewhere classified, lumbar region, initial encounter for fracture; Y83.8 Other surgical procedures as the cause of abnormal reaction of the patient, or of later complication, without mention of misadventure at the time of the procedure; I25.10 Atherosclerotic heart disease of native coronary artery without angina pectoris; I73.9 Peripheral vascular disease, unspecified; D63.1 Anemia in chronic kidney disease; B95.7 Other staphylococcus as the cause of diseases classified elsewhere; I1A.0 Resistant hypertension; Z99.2 Dependence on renal dialysis
CPT/HCPCS: 10140; 10160; 36556; 36558; 36589; 36598; 70450; 71046; 72100; 72148; 74176; 76937; 76942; 77001; 80048; 80051; 80053; 80202; 83735; 84145; 85014; 85018; 85025; 85027; 86850; 86900; 86901; 87015; 87040; 87070; 87075; 87147; 87150; 87186; 87205; 87502; 87811; 93005; 93306; 93990; 96365; 97116; 97161; 97530; 99152; 99153; 99285; 99406; C1750; C1752; C1769; G0257; P9047; Q5106

== ENCOUNTER 2024-01-22 11:27 | Emergency (ER) | payer MEDICARE, BC, SELFPAY ==
[2024-01-22] MEDS: PEPCID 20 MG PO (11:52)
[2024-01-22] MEDS: DELTASONE 50 MG PO (11:53)
[2024-01-22] MEDS: BENADRYL 25 MG PO (11:53)
--- NOTE | 2024-01-22 12:56 | ED.GENMED ---
History of Present Illness
General
Chief Complaint: Allergic Reaction
Source: patient and family
Time Seen by Provider: 01/22/24 12:23
Travel History
Have you had any contact with someone who has COVID-19?: No
Do you have any symptoms of coronavirus? Fever > 100 degrees, chills, cough, shortness of breath, sore throat, loss of taste or smell, muscle aches, or headache?: No
History of Present Illness
History of Present Illness:
This patient is a 68-year-old female who presents emergency department with her sister, Margarita. The patient was recently in the hospital, and is suffering from pain related to compression fracture in her spine. She was prescribed oxycodone, 1
tablet just before dialysis. She typically takes it at 3:30 AM in preparation for getting up for dialysis at 5:30 AM. This morning she took the medicine at 3:30 AM as usual. However, she was still having pain at 5:30 AM and called the dialysis
center asking to postpone it till 3 PM today. She then took her usual medications at 7 AM. At 10 AM when she was starting to get ready she noted that her face was swollen. She denies associated lip or tongue swelling but noted that the
periorbital area was swollen as well as her entire face. This was not associated with rash, itching, trouble swallowing, chest pain, shortness of breath, abdominal pain, nausea, vomiting. She did note that her throat felt 'dry'. There was no
change in voice. No other symptoms noted. Her back pain is now manageable. She denies any new complaints. She has been on these medications for some time.
Past History
Past History
ED Past Medical History: HTN, Hypercholesterolemia, Renal failure (Polycystic kidney disease) and Other (Polycystic kidney disease, hypertension, CAD, PAD)
ED Past Surgical History: Cholecystectomy and Other (Renal artery stent, left arm AV fistula removed, dialysis catheter right chest wall)
Social History
Tobacco: Smoker (smokers 10 sticks per day)
Alcohol: None
Drug: None
Personal: Single
Living: with family
Employment: Retired
Family History
Family History: Other (Coronary artery disease, hypertension, brother with pacemaker, PCKD)
Phy Exam
Physical Exam
Physical Exam:
GENERAL: Alert , in no apparent distress
EYE: pupils equal and reactive
NECK: Supple, no significant adenopathy.
ENT: o/p clr, mmm, no trismus, no drool, voice clear no lip or tongue swelling noted.
CARDIAC: Regular rate and rhythm .
LUNGS: Clear breath sounds bilaterally, no acute respiratory distress, no wheezes/rales/rhonchi
ABDOMEN: Soft, without focal tenderness, no r/g
NEUROLOGICAL: Alert and oriented, no focal neuro deficits
SKIN: Warm and dry, skin intact. except for well healing, noninfected linear wound R UE
MUSCULOSKELETAL: No edema, well perfused.
PSYCH: Normal and appropriate interaction.
BACK: nontender to palpation, no rash
Course
Orders/Labs/Results
Orders:
Orders
01/22/24 11:48
Diphenhydramine [Benadryl] 25 mg .ROUTE .STK-MED ONE
Famotidine [Pepcid] 20 mg .ROUTE .STK-MED ONE
Prednisone [Deltasone] 50 mg .ROUTE .STK-MED ONE
01/22/24 11:52
Diphenhydramine [Benadryl] 25 mg PO NOW STA
Famotidine [Pepcid] 20 mg PO NOW STA
01/22/24 11:53
Prednisone [Deltasone] 50 mg PO NOW STA
01/22/24 11:43
01/22/24 11:43
Vital Signs
Initial and Last Documented VS:
Initial Vital Signs
Pulse Resp BP Pulse Ox
75 18 135/62 100
01/22/24 13:08 01/22/24 13:08 01/22/24 13:08 01/22/24 13:08
Last Documented Vital Signs
Pulse Resp BP Pulse Ox
75 18 135/62 100
01/22/24 13:08 01/22/24 13:08 01/22/24 13:08 01/22/24 13:08
*Critical Care Note
Total Time (30-74mins, 75-104mins- exclusive of procedures): Not Applicable
Update Note
Update Note:
Patient presents to the Emergency Department with facial swelling
Number and Complexity of Problems Addressed at the Encounter
� Chronic conditions affecting care:
� Acute Exacerbation and/or Progression of Chronic Illness:
� Differential Diagnosis includes: But not limited to angioedema, nonspecific allergic reaction, environmental allergies, etc.
Amount and/or Complexity of Data to be Reviewed and Analyzed
� I performed an independent evaluation of and my interpretation is:
EKG:
CT:
Xrays:
Laboratory Studies:
Other:
� Review of other/old records reveals: Patient was just discharged earlier in December with bacteremia, etc. She was diagnosed with a compression fracture at that time.
� Clinical information was obtained by an independent historian: Margarita sister who is bedside
� Prescriptions/Medications Considered but not given:
� Further testing considered but not performed:
Risk of Complications and/or Morbidity or Mortality of Patient Management
� Social determinants of health affecting care: Patient has hemodialysis at 3 PM and is able to get there.
� Discussion with other providers (PCP, Hospitalists, Consultants, etc): Case discussed with nephrology on-call, Dr. ASHLEY FRANCISCO, I sent her the medication list as well as history. Recommends holding ARB and increase hydralazine
to 50 mg 3 times daily if needed for high blood pressure. Will communicate to patient. Also will discuss with patient importance of follow-up and reasons to return to the emergency department. She remains asymptomatic and well-appearing here.
� Escalation of care including admission/observation vs risk of discharge considered:
ED Attending Note
-
Portions of this chart may have been created with voice recognition software.� Occasional wrong word or��sound alike� substitutions may have occurred due to the inherent limitations of voice recognition software.
Discharge Plan
Departure
Patient Disposition: Home (Routine Discharge)
Date of Disposition: 01/22/24
Time of Disposition: 13:15
Patient with high blood pressure during this ER visit?: Yes
Condition: Good
Discharge Problem:
Facial swelling
Instructions: BLOOD PRESSURE
Prescriptions:
No Action
aspirin 325 MG tablet,delayed release (DR/EC)
325 mg PO DAILY
Lokelma 10 gram Powder In Packet
10 g PO QPM
carvedilol 25 mg Tablet
25 mg PO BID
valsartan 320 mg Tablet
320 mg PO HS
sucralfate 1 gram tablet
1 g PO BID
atorvastatin 10 mg tablet
10 mg PO HS
ProRenal 8 mg iron-800 mcg-1,000 unit tablet
1 tab PO DAILY
pantoprazole [Protonix] 40 mg tablet,delayed release (DR/EC)
40 mg PO DAILY Qty: 30 0RF
cinacalcet [Sensipar] 60 mg Tablet
60 mg PO MOWEFR@0800
sevelamer carbonate [Renvela] 800 mg Tablet
1,600 mg PO AC
polyethylene glycol 3350 [Miralax] 17 gram/dose Powder
17 g PO DAILY
lidocaine 4 % Adhesive Patch,Medicated
2 patch TOPICAL DAILY PRN (Reason: apply to left hip/thigh and left lower back)
Patient Comments:
12/22/2023, pt. currently wearing half of a patch on their left thigh and half of a patch on their left lower back; pt. also wearing a full patch on their left hip.
hydralazine 25 mg Tablet
25 mg PO BID
calcitriol 0.5 mcg Capsule
0.5 mcg PO MOWEFR@0800
clonidine HCl 0.2 mg Tablet
0.2 mg PO BID
tramadol 50 mg Tablet
25 mg PO BIDPRN PRN (Reason: severe pain) Qty: 14 0RF
vancomycin in 0.9 % sodium chl 750 mg/150 mL Piggyback
750 mg IV HD-MOWEFR Qty: 15 0RF
Referrals:
Genesis Jean Baptiste PA-C [Family Provider] - Tomorrow
UNKNOWN - PT DOES,NOT KNOW [Unknown Provider] -
Activity Restrictions/Additional Instructions:
GIVEN THE FACIAL SWELLING THAT YOU HAD TODAY, WE RECOMMEND THAT YOU STOP VALSARTAN (DIOVAN), AND INCREASE THE HYDRALAZINE (APRESOLINE) TO 50 MG THREE TIMES A DAY NEEDED FOR BLOOD PRESSURE CONTROL. yOU ARE SCHEDULED TO SEE YOUR DOCTOR TOMORROW.
PLEASE BRING THIS PAPERWORK WITH YOU. IF YOU DEVELOP CHEST PAIN, TROUBLE BREATHING, FACIAL/TONGUE/LIP SWELLING, TROUBLE SWALLOWING, OR OTHER WORRISOME SIGNS, GO TO THE ER IMMEDIATELY!
Interventions
Interventions:
*Risk Screen - Suicide Last Done: 01/22/24 11:40
*General Assessment Last Done: 01/22/24 11:40
*Neglect/Abuse Screening Last Done: 01/22/24 11:40
ED- Fall Risk Assessment Last Done: 01/22/24 12:18
*ED COVID-19 Vaccine History Last Done: 01/22/24 12:18
ED- Cardiac Assessment Last Done: 01/22/24 12:17
ED- Pulmonary Assessment Last Done: 01/22/24 12:17
ED-Skin Assessment Last Done: 01/22/24 12:17
Discharge Date and Time
Print Language: DUTCH
[2024-01-22 13:08] VITALS: BP 135/62
== END 2024-01-22 13:25 | disposition home or self-care (01) ==
LOC: EMR 11:27
PROVIDERS: EMERGENCY PHYSICIAN Emergency Medicine; FAMILY PHYSICIAN Physician Assistant Medical
DX: R22.0 Localized swelling, mass and lump, head (principal); F17.210 Nicotine dependence, cigarettes, uncomplicated; I12.0 Hypertensive chronic kidney disease with stage 5 chronic kidney disease or end stage renal disease; N19 Unspecified kidney failure
CPT/HCPCS: 99283

== ENCOUNTER 2024-01-24 05:03 | Emergency (ER) | payer MEDICARE, BC, SELFPAY ==
[2024-01-24 05:06] VITALS: BMI 23.9
[2024-01-24 05:16] VITALS: BP 152/69
--- NOTE | 2024-01-24 05:29 | ED.GENMED ---
History of Present Illness
<REHANA Weinstein - Last Filed: 01/24/24 05:38>
General
Chief Complaint: Allergic Reaction
Source: patient
Exam Limitations: none
Time Seen by Provider: 01/24/24 05:15
Nursing documentation reviewed up to this point in time: agreed with
Travel History
Have you had any contact with someone who has COVID-19?: No
Do you have any symptoms of coronavirus? Fever > 100 degrees, chills, cough, shortness of breath, sore throat, loss of taste or smell, muscle aches, or headache?: No
History of Present Illness
History of Present Illness:
patient is a 68 y/o female with PMH of ESRD, CAD presenting with an allergic reaction. Patient states that she woke up this morning and noticed her eyes and tongue were swollen. Patient states she had trouble seeing due to the level of swelling.
Patient states that she had trouble breathing at the time of the episode. patient states she took 3 Benadryl at home and her symptoms have greatly decreased. Patient states that she now feels like she has a very dry mouth. Patient denies N/V/D/C,
wheezing, CP, [place], Rash. patient states that when this occurred on Monday they thought it may be due to valsartan. Patient states the only new medication that she has started and Monday has been oxycodone. Patient states that she goes to
dialysis M,W,F and was suppose to go this morning.
Past History
<REHANA Weinstein - Last Filed: 01/24/24 05:38>
Past History
ED Past Medical History: HTN, Hypercholesterolemia, Renal failure (Polycystic kidney disease) and Other (Polycystic kidney disease, hypertension, CAD, PAD)
ED Past Surgical History: Cholecystectomy and Other (Renal artery stent, left arm AV fistula removed, dialysis catheter right chest wall)
Social History
Tobacco: Smoker (smokers 10 sticks per day)
Alcohol: None
Drug: None
Personal: Single
Living: with family
Employment: Retired
Family History
Family History: Other (Coronary artery disease, hypertension, brother with pacemaker, PCKD)
Review of Systems
<Chanel MishrawsonREHANA - Last Filed: 01/24/24 05:38>
Review of Systems
Constitutional: Reports no symptoms
EENT: Reports mouth swelling
Respiratory: Reports trouble breathing
Cardiac: Reports no symptoms
ABD/GI: Reports no symptoms
: Reports no symptoms
Musculoskeletal: Reports no symptoms
Skin: Reports no symptoms
Neurological: Reports no symptoms
Endocrine: Reports no symptoms
Hematologic/Lymphatic: Reports no symptoms
Psychiatric: Reports no symptoms
Phy Exam
<ST CorinnaSC - Last Filed: 01/24/24 05:38>
General Physical Exam
General Presentation: well appearing and no apparent distress
General Skin: warm and dry
General Habitus: normal
General Mental: alert
General Hydration: appears well hydrated
ENT Exam
ENT Exam: EOMI, pharynx normal, neck supple and normocephalic
Additional ENT: dry mucous membranes
Eye Exam
Eye Exam: PERRL, cornea clear and conjunctiva normal
Cardiovascular Exam
Cardiovascular Exam: regular rate/rhythm, no edema, no murmur and normal peripheral pulses
Pulmonary Exam
Pulmonary Exam: lungs clear, no respiratory distress, no rales, no crackles, no rhonchi, no stridor, no wheezing and no cough
Gastrointestinal Exam
Gastrointestinal Exam: normal bowel sounds, non tender, soft, no organomegaly, no pulsatile mass and non distended
Neurological Exam
Neurological Exam: alert, oriented x3, no motor deficits and speech normal
Musculoskeletal Exam
Musculoskeletal Exam: full ROM and no edema
Skin Exam
Skin Exam: normal color, warm/dry, no rash and no petechia
Psychiatric Exam
Psychiatric Exam: normal mood/affect
Course
<REHANA Weinstein - Last Filed: 01/24/24 05:38>
Vital Signs
Initial and Last Documented VS:
Initial Vital Signs
Temp Pulse Resp BP Pulse Ox
97.8 F 78 21 152/69 100
01/24/24 05:16 01/24/24 05:16 01/24/24 05:16 01/24/24 05:16 01/24/24 05:16
Last Documented Vital Signs
Temp Pulse Resp BP Pulse Ox
97.8 F 78 21 152/69 100
01/24/24 05:16 01/24/24 05:16 01/24/24 05:16 01/24/24 05:16 01/24/24 05:28
<Graham Sanchez DO - Last Filed: 01/24/24 06:19>
Vital Signs
Initial and Last Documented VS:
Initial Vital Signs
Temp Pulse Resp BP Pulse Ox
97.8 F 78 21 152/69 100
01/24/24 05:16 01/24/24 05:16 01/24/24 05:16 01/24/24 05:16 01/24/24 05:16
Last Documented Vital Signs
Temp Pulse Resp BP Pulse Ox
97.8 F 78 21 152/69 100
01/24/24 05:16 01/24/24 05:16 01/24/24 05:16 01/24/24 05:16 01/24/24 05:28
<REHANA Weinstein - Last Filed: 01/24/24 05:38>
MDM/Problems Addressed
Differential Diagnosis Includes:
angioedema
anaphylaxis
MDM/Problems Addressed:
allergic reaction
<REHANA Weinstein - Last Filed: 01/24/24 05:38>
*Critical Care Note
Total Time (30-74mins, 75-104mins- exclusive of procedures): Not Applicable
ED Attending Note
<REHANA Weinstein - Last Filed: 01/24/24 05:38>
-
Portions of this chart may have been created with voice recognition software.� Occasional wrong word or��sound alike� substitutions may have occurred due to the inherent limitations of voice recognition software.
<Graham Sanchez DO - Last Filed: 01/24/24 06:19>
ED Attending Note
Patient seen and examined by attending physician: Yes
I performed the substantive portion of visit, reviewed & personally made and approve the management plan that is documented in note by myself or JOCELYN.: Yes
ED Attending Note:
This a pleasant 68-year-old female who presents after having allergic reaction. She was seen earlier in the week for similar reaction. At 2 AM she started to have a return of symptoms so she took diphenhydramine. She states that her symptoms
resolved and by the time EMS arrived, she came to the hospital 'just to get checked out '. She had no symptoms. She denied any airway issues. Denied fever, chills, nausea or vomiting. Patient was seen in conjunction with the PA student. I have
reviewed and agree with the history and treatment plan presented. On my independent physical exam, patient is awake, alert, and oriented x3, skin is warm and dry. No urticaria. Airway is clear. No wheezing or stridor present. She does have a
dialysis cath in her left chest wall. There is a scar in the right chest wall. Plan is to be discharged home. She will follow-up with an supervisor asbestos removal. She will take her dialysis today.
Discharge Plan
Departure
Patient Disposition: Home (Routine Discharge)
Date of Disposition: 01/24/24
Time of Disposition: 06:14
Patient with high blood pressure during this ER visit?: Yes
Condition: Good
Discharge Problem:
Allergic reaction
Instructions: Allergic Reaction ED
Prescriptions:
New
diphenhydramine HCl [Benadryl] 25 mg capsule
25 mg PO TID PRN (Reason: allergy symptoms) Qty: 14 0RF
epinephrine [EpiPen] 0.3 mg/0.3 mL auto-injector
0.3 mg IM .STAT PRN (Reason: anaphylaxis) Qty: 1 0RF
prednisone 50 mg tablet
50 mg PO DAILY Qty: 4 0RF
No Action
aspirin 325 MG tablet,delayed release (DR/EC)
325 mg PO DAILY
Lokelma 10 gram Powder In Packet
10 g PO QPM
carvedilol 25 mg Tablet
25 mg PO BID
sucralfate 1 gram tablet
1 g PO BID
atorvastatin 10 mg tablet
10 mg PO HS
ProRenal 8 mg iron-800 mcg-1,000 unit tablet
1 tab PO DAILY
pantoprazole [Protonix] 40 mg tablet,delayed release (DR/EC)
40 mg PO DAILY Qty: 30 0RF
cinacalcet [Sensipar] 60 mg Tablet
60 mg PO MOWEFR@0800
sevelamer carbonate [Renvela] 800 mg Tablet
1,600 mg PO AC
polyethylene glycol 3350 [Miralax] 17 gram/dose Powder
17 g PO DAILY
hydralazine 25 mg Tablet
25 mg PO BID
calcitriol 0.5 mcg Capsule
0.5 mcg PO MOWEFR@0800
clonidine HCl 0.2 mg Tablet
0.2 mg PO BID
Referrals:
Marleen Le MD [Consulting Staff] -
Interventions
Interventions:
*Risk Screen - Suicide Last Done: 01/24/24 05:16
*General Assessment Last Done: 01/24/24 05:16
*Neglect/Abuse Screening Last Done: 01/24/24 05:16
ED- Fall Risk Assessment Last Done: 01/24/24 05:28
*ED COVID-19 Vaccine History Last Done: 01/24/24 05:28
ED- Cardiac Assessment Last Done: 01/24/24 05:28
ED- Pulmonary Assessment Last Done: 01/24/24 05:28
ED-Skin Assessment Last Done: 01/24/24 05:28
Discharge Date and Time
Print Language: FILIPINO
[2024-01-24 06:00] VITALS: BP 152/48
== END 2024-01-24 06:44 | disposition home or self-care (01) ==
LOC: EMR 05:03
PROVIDERS: EMERGENCY PHYSICIAN Student in an Organized Health Care Education/Training Program; FAMILY PHYSICIAN Physician Assistant Medical
DX: T78.40XA Allergy, unspecified, initial encounter (principal); R22.0 Localized swelling, mass and lump, head; R06.02 Shortness of breath; R68.2 Dry mouth, unspecified; H53.8 Other visual disturbances; I25.10 Atherosclerotic heart disease of native coronary artery without angina pectoris; I12.0 Hypertensive chronic kidney disease with stage 5 chronic kidney disease or end stage renal disease; N18.6 End stage renal disease; Z99.2 Dependence on renal dialysis; I42.9 Cardiomyopathy, unspecified; E78.00 Pure hypercholesterolemia, unspecified; I73.9 Peripheral vascular disease, unspecified; K21.9 Gastro-esophageal reflux disease without esophagitis; M10.9 Gout, unspecified; D64.9 Anemia, unspecified; F17.210 Nicotine dependence, cigarettes, uncomplicated; I25.2 Old myocardial infarction; Z86.73 Personal history of transient ischemic attack (TIA), and cerebral infarction without residual deficits; Z79.82 Long term (current) use of aspirin; Z90.49 Acquired absence of other specified parts of digestive tract; Z88.1 Allergy status to other antibiotic agents
CPT/HCPCS: 99283

== ENCOUNTER 2024-01-24 13:59 | Inpatient (IN) | payer MEDICARE, BC, SELFPAY ==
[2024-01-24 09:48] VITALS: BP 143/68
--- NOTE | 2024-01-24 11:28 | ED.GENMED ---
History of Present Illness
<Ben Shepard PA-C - Last Filed: 01/24/24 15:40>
General
Chief Complaint: Allergic Reaction
Time Seen by Provider: 01/24/24 10:59
Travel History
Have you had any contact with someone who has COVID-19?: No
Do you have any symptoms of coronavirus? Fever > 100 degrees, chills, cough, shortness of breath, sore throat, loss of taste or smell, muscle aches, or headache?: No
History of Present Illness
History of Present Illness:
68-year-old female with history of end-stage renal disease on dialysis and recent Staph epidermidis bacteremia currently on IV vancomycin presents to the emergency department for evaluation of recurrent facial swelling and throat tightness ongoing
for the past several days. Has been evaluated in this emergency department twice in the past 3 days for this and treated with steroids and antihistamines. Symptoms continue to recur with antihistamines wear off. Was contacted by her infectious
disease specialist and advised to return to emergency department for admission as this could be related to the vancomycin in which case a switch to a new agent will be prudent.
Past History
<Ben Shepard PA-C - Last Filed: 01/24/24 15:40>
Past History
ED Past Medical History: HTN, Hypercholesterolemia, Renal failure (Polycystic kidney disease) and Other (Polycystic kidney disease, hypertension, CAD, PAD)
ED Past Surgical History: Cholecystectomy and Other (Renal artery stent, left arm AV fistula removed, dialysis catheter right chest wall)
Social History
Tobacco: Smoker (smokers 10 sticks per day)
Alcohol: None
Drug: None
Personal: Single
Living: with family
Employment: Retired
Family History
Family History: Other (Coronary artery disease, hypertension, brother with pacemaker, PCKD)
Review of Systems
<Ben Shepard PA-C - Last Filed: 01/24/24 15:40>
Review of Systems
Allergies reviewed?: Yes
All Other Systems: ROS reviewed and negative except as documented in HPI and ROS
Phy Exam
<Ben Shepard PA-C - Last Filed: 01/24/24 15:40>
Physical Exam
Physical Exam:
GEN: Well appearing, NAD, WDWN
HEENT: Oral mucosa moist, no scleral icterus. Moderate diffuse facial angioedema involving the eyelids and cheeks, airway is patent with no edema
Cardiac: Regular rate
Lung: No respiratory distress, no tachypnea
Chest: Left upper chest wall tunneled dialysis catheter present, site is clean and dry. Healing scar from prior right chest wall dialysis catheter
MSK: No gross deformity or injuries
Skin: Good color, no pallor or jaundice, no rashes
Neuro: AO x3, moves all extremities freely
Psych: Calm, cooperative
Course
<Ben Shepard PA-C - Last Filed: 01/24/24 15:40>
Orders/Labs/Results
Orders:
Orders
01/24/24 11:41
Complete Blood Count/With Diff Urgent
Comprehensive Metabolic Panel Urgent
01/24/24 11:59
Diphenhydramine [Benadryl] 12.5 mg IV NOW STA
01/24/24 13:27
Admit/Transfer Patient As Directed
Co-Sign Provider:
Level of Care: Inpatient admission
Assign to:: Telemetry
Physician / Group: Donna
Diagnosis: Angioedema
Reason for Telemetry: Arrhythmia
Date to Stop Telemetry: 01/27/24
Time to Stop Telemetry: 11:00
Reason for Hospitalization: Recurrent Angioedema
Expected length of stay greater than two midnights?: Yes
ELOS- Estimated Length of Stay in days: 3
I certify the patient meets the requirements for IP care: Yes
01/24/24 13:35
Code Status As Directed
Resuscitation Status: Full Code
01/24/24 13:39
INFECTIOUS DISEASE CONSULT Routine
Consulting Provider: Shante Klein
Was physician already notified: Yes
NEPHROLOGY CONSULT Routine
Consulting Provider: Isaac Almanzar V.
Was physician already notified: Yes
01/24/24 14:00
Dexamethasone Sod Phosphate [Decadron] 10 mg IV NOW STA
Famotidine [Pepcid] 20 mg IV NOW STA
01/24/24 14:41
Acetaminophen [Tylenol] 650 mg PO Q4HPRN PRN
Diphenhydramine [Benadryl] 12.5 mg PO Q4HPRN PRN
01/24/24 14:41
Activity As Directed
Activity Level: Out of Bed-Early Mobility
With Assistance
I&O [Intake/ Output] As Directed
Frequency: q12h
Vital Signs As Directed
Frequency: Per unit guidelines
Weight As Directed
Frequency: Daily
Pulse Ox/cont/shift [RESP] Routine
Quantity: 1
DX Deep Vein Thrombosis Video Routine
01/24/24 16:00
Heparin 5,000 units SC Q8
01/24/24 17:30
Sevelamer Carbonate [Renvela] 1,600 mg PO MEALS
01/24/24 20:00
Atorvastatin [Lipitor] 10 mg PO DAILY@1999
Carvedilol [Coreg] 25 mg PO BID
Clonidine [Catapres] 0.2 mg PO BID
HydrALAZINE [Apresoline] 50 mg PO BID
Sucralfate [Carafate] 1 gram PO BID
01/25/24 06:00
Basic Metabolic Panel IN AM
Complete Blood Count/No Diff IN AM
01/25/24 08:00
Aspirin Enteric Coated 325 mg PO DAILY
Pantoprazole [Protonix] 40 mg PO DAILY
Renal Cap [Nephrocap] 1 capsule PO DAILY
01/26/24 08:00
Calcitriol [Rocaltrol] 0.5 mcg PO MOWEFR@0800
Cinacalcet HCl [Sensipar] 60 mg PO MOWEFR@0800
01/27/24 11:00
DC Protocol for Telemetry ONCE
Abnormal Lab Results
01/24/24
11:41
RBC 2.89 L 10^6/uL
(4.20-5.40)
Hgb 9.1 L g/dL
(12.0-16.0)
Hct 29.1 L %
(37.0-47.0)
MCV 100.7 H fL
(81.0-99.0)
MCH 31.5 H pg
(27.0-31.0)
MCHC 31.3 L g/dL
(33.0-37.0)
RDW 17.0 H %
(11.5-14.5)
MPV 10.7 H fL
(7.4-10.4)
Sodium 132 L mmol/L
(135-145)
Chloride 89 L mmol/L
(98-107)
Carbon Dioxide 32 H mmol/L
(22-30)
BUN 36 H mg/dl
(7-17)
Creatinine 5.5 H* mg/dL
(0.6-1.0)
AST 44 H U/L
(14-36)
01/24/24 11:41
01/24/24 11:41
Vital Signs
Initial and Last Documented VS:
Initial Vital Signs
Temp Pulse Resp BP Pulse Ox
97.7 F 66 20 143/68 98
01/24/24 09:48 01/24/24 09:48 01/24/24 09:48 01/24/24 09:48 01/24/24 09:48
Last Documented Vital Signs
Temp Pulse Resp BP Pulse Ox
97.7 F 75 9 131/58 80
01/24/24 09:48 01/24/24 13:00 01/24/24 12:45 01/24/24 13:00 01/24/24 13:12
<Jan Arteaga, DO - Last Filed: 01/24/24 12:09>
Orders/Labs/Results
Orders:
Orders
01/24/24 11:41
Complete Blood Count/With Diff Urgent
Comprehensive Metabolic Panel Urgent
01/24/24 11:59
Diphenhydramine [Benadryl] 12.5 mg IV NOW STA
01/24/24 13:27
Admit/Transfer Patient As Directed
Co-Sign Provider:
Level of Care: Inpatient admission
Assign to:: Telemetry
Physician / Group: Donna
Diagnosis: Angioedema
Reason for Telemetry: Arrhythmia
Date to Stop Telemetry: 01/27/24
Time to Stop Telemetry: 11:00
Reason for Hospitalization: Recurrent Angioedema
Expected length of stay greater than two midnights?: Yes
ELOS- Estimated Length of Stay in days: 3
I certify the patient meets the requirements for IP care: Yes
01/24/24 13:35
Code Status As Directed
Resuscitation Status: Full Code
01/24/24 13:39
INFECTIOUS DISEASE CONSULT Routine
Consulting Provider: Shante Klein
Was physician already notified: Yes
NEPHROLOGY CONSULT Routine
Consulting Provider: Isaac Almanzar V.
Was physician already notified: Yes
01/24/24 14:00
Dexamethasone Sod Phosphate [Decadron] 10 mg IV NOW STA
Famotidine [Pepcid] 20 mg IV NOW STA
01/24/24 14:41
Acetaminophen [Tylenol] 650 mg PO Q4HPRN PRN
Diphenhydramine [Benadryl] 12.5 mg PO Q4HPRN PRN
01/24/24 14:41
Activity As Directed
Activity Level: Out of Bed-Early Mobility
With Assistance
I&O [Intake/ Output] As Directed
Frequency: q12h
Vital Signs As Directed
Frequency: Per unit guidelines
Weight As Directed
Frequency: Daily
Pulse Ox/cont/shift [RESP] Routine
Quantity: 1
DX Deep Vein Thrombosis Video Routine
01/24/24 16:00
Heparin 5,000 units SC Q8
01/24/24 17:30
Sevelamer Carbonate [Renvela] 1,600 mg PO MEALS
01/24/24 20:00
Atorvastatin [Lipitor] 10 mg PO DAILY@1999
Carvedilol [Coreg] 25 mg PO BID
Clonidine [Catapres] 0.2 mg PO BID
HydrALAZINE [Apresoline] 50 mg PO BID
Sucralfate [Carafate] 1 gram PO BID
01/25/24 06:00
Basic Metabolic Panel IN AM
Complete Blood Count/No Diff IN AM
01/25/24 08:00
Aspirin Enteric Coated 325 mg PO DAILY
Pantoprazole [Protonix] 40 mg PO DAILY
Renal Cap [Nephrocap] 1 capsule PO DAILY
01/26/24 08:00
Calcitriol [Rocaltrol] 0.5 mcg PO MOWEFR@0800
Cinacalcet HCl [Sensipar] 60 mg PO MOWEFR@0800
01/27/24 11:00
DC Protocol for Telemetry ONCE
Abnormal Lab Results
01/24/24
11:41
RBC 2.89 L 10^6/uL
(4.20-5.40)
Hgb 9.1 L g/dL
(12.0-16.0)
Hct 29.1 L %
(37.0-47.0)
MCV 100.7 H fL
(81.0-99.0)
MCH 31.5 H pg
(27.0-31.0)
MCHC 31.3 L g/dL
(33.0-37.0)
RDW 17.0 H %
(11.5-14.5)
MPV 10.7 H fL
(7.4-10.4)
Sodium 132 L mmol/L
(135-145)
Chloride 89 L mmol/L
(98-107)
Carbon Dioxide 32 H mmol/L
(22-30)
BUN 36 H mg/dl
(7-17)
Creatinine 5.5 H* mg/dL
(0.6-1.0)
AST 44 H U/L
(14-36)
01/24/24 11:41
01/24/24 11:41
Vital Signs
Initial and Last Documented VS:
Initial Vital Signs
Temp Pulse Resp BP Pulse Ox
97.7 F 66 20 143/68 98
01/24/24 09:48 01/24/24 09:48 01/24/24 09:48 01/24/24 09:48 01/24/24 09:48
Last Documented Vital Signs
Temp Pulse Resp BP Pulse Ox
97.7 F 75 9 131/58 80
01/24/24 09:48 01/24/24 13:00 01/24/24 12:45 01/24/24 13:00 01/24/24 13:12
Jerellt;Ben Shepard PA-C - Last Filed: 01/24/24 15:40>
MDM/Problems Addressed
MDM/Problems Addressed:
Patient presents with persistent angioedema, uncertain etiology whether this be the vancomycin or the new narcotics that she is taking. Requested that the patient be admitted by infectious disease as they may need to adjust her antibiotic therapy.
Clinically stable, no indication for emergent dialysis
<Ben Shepard PA-C - Last Filed: 01/24/24 15:40>
*Critical Care Note
Total Time (30-74mins, 75-104mins- exclusive of procedures): Not Applicable
ED Attending Note
<Ben Shepard PA-C - Last Filed: 01/24/24 15:40>
-
Portions of this chart may have been created with voice recognition software.� Occasional wrong word or��sound alike� substitutions may have occurred due to the inherent limitations of voice recognition software.
<Jan Arteaga DO - Last Filed: 01/24/24 12:09>
ED Attending Note
Patient seen and examined by attending physician: Yes
I performed the substantive portion of visit, reviewed & personally made and approve the management plan that is documented in note by myself or JOCELYN.: Yes
ED Attending Note:
I have seen and evaluated the patient with a [id number] encounter. I have spoken to the advance practicer provider and involved in the medical history, the physical exam, medical decision making.
Evaluation and management service: agree unless noted differently below.
Results interpretation: agree unless noted differently below.
Focused HPI:
68-year-old female was recently evaluated for angioedema. She was discharged home. Patient currently on outpatient vancomycin. She discussed the case with her infectious disease doctor sent her back in for admission as there was concerned she
could be having an allergic reaction to the vancomycin
Physical exam: Sitting in bed comfortably. Mild facial swelling. Posterior pharynx clear
Medical Decision Making: EJ placed for IV access. Will admit. Infectious disease following
Discharge Plan
Departure
Patient Disposition: Admit
Date of Disposition: 01/24/24
Time of Disposition: 12:31
Admit to: Med/Surg
Presentation/result/management discussed w/ accepting MD/DO: Hospitalist
Discharge Problem:
Angioedema
Interventions
Interventions:
*Risk Screen - Suicide Last Done: 01/24/24 15:27
*ED COVID-19 Vaccine History Last Done: 01/24/24 15:19
ED- Cardiac Assessment Last Done: 01/24/24 13:12
ED- Pulmonary Assessment Last Done: 01/24/24 13:12
ED-Skin Assessment Last Done: 01/24/24 13:12
[2024-01-24 12:00] VITALS: BP 140/44
[2024-01-24 12:01] LABS: % Basophils 0.6 % (0-2); % Eosinophils 5.6 % (0-6); % Immature Granulocytes 0.2 % (0-0.5); % Monocytes 8.8 % (1.7-9.3); % Neutrophils 58.8 % (42.2-75.2); Absolute Eosinophils 0.3 10^3/uL (0-0.7); Absolute Lymphocytes 1.4 10^3/uL (1.2-3.4); Absolute Monocytes 0.5 10^3/uL (0.1-0.6); Absolute Neutrophils 3.1 10^3/uL (1.4-6.5); Hematocrit 29.1 % (37.0-47.0); Hemoglobin 9.1 g/dL (12.0-16.0); Mean Corp Hgb Conc. 31.3 g/dL (33.0-37.0); Mean Corpuscular Hgb 31.5 pg (27.0-31.0); Mean Corpuscular Volume 100.7 fL (81.0-99.0); Mean Platelet Volume 10.7 fL (7.4-10.4); Nucleated Red Blood Cells % 0 %; Platelet Count 181 10^3/uL (130-400); Red Blood Cell Count 2.89 10^6/uL (4.20-5.40); White Blood Cell Count 5.2 10^3/uL (4.8-10.8)
[2024-01-24 12:19] LABS: ALT (SGPT) 22 U/L (0-35); AST (SGOT) 44 U/L (14-36); Albumin 3.5 g/dl (3.5-5.0); Alkaline Phosphatase 107 U/L (38-126); Blood Urea Nitrogen 36 mg/dl (7-17); Calcium 9.4 mg/dl (8.4-10.2); Carbon Dioxide 32 mmol/L (22-30); Chloride 89 mmol/L (98-107); Glucose 80 mg/dl (70-99); Potassium 3.9 mmol/L (3.5-5.1); Sodium 132 mmol/L (135-145); Total Bilirubin 1.1 mg/dl (0.2-1.3); Total Protein 6.6 g/dl (6.3-8.2); eGFR 7.84
[2024-01-24 13:00] VITALS: BP 131/58
[2024-01-24] MEDS: BENADRYL 12.5 MG IV (13:07)
--- NOTE | 2024-01-24 13:27 | HPS.HSE ---
Family Physician
-
Family Physician: Genesis Jean Baptiste
Chief Complaint
-
Recurent facial swelling
History of Present Illness
Patient is a 68 y/o female past medical history of CAD and ESRD who presents with recurrent facial/tongue swelling. Patient was seen here at the ED on January 21 with facial, neck and tongue swelling. At that time it was thought to be related to
valsartan. She stopped the valsartan, but reports she continued to use the same pill box.This morning she developed recurrent symptoms which prompted her to come to emergency department for evaluation. She is also currently receiving vancomycin
post-HD for recent staph epidermidis bacteremia and is scheduled to complete coarse on February 16. She received last dose of vancomycin on Monday evening (two days ago).
Medical History
Past Medical History
Past Medical History: Reports Other
Additional Past Medical History:
Coronary Artery Disease
Essential Hypertension
Hyperlipidemia
ESRD secondary to Polycystic Kidney Disease on HD
GERD
Past Surgical History: Reports Other
Additional Past Surgical History:
AV Fistula
Renal Artery Stent
Cardiac Stent
Cholecystectomy
Social History
Tobacco: Smoker (1/2 ppd)
Family History
Family History: Not pertinent
Allergies / Home Medications
Allergies reflects when Allergies were last updated in [employer].
Home Medications with original date entered in [employer]
Allergy/Medication List:
Allergies
Allergy/AdvReac Type Severity Reaction Status Date / Time
cefazolin [From [facility]] Allergy Itching Verified 01/24/24 09:47
Home Medications
aspirin 325 mg tablet,delayed release 325 mg PO DAILY Blood Clot Prevention/Tx 03/14/22
sodium zirconium cyclosilicate 10 gram oral powder packet (Lokelma) 10 g PO QPM high potassium 06/13/22
carvedilol 25 mg tablet 25 mg PO BID Heart Disease/Condition 10/21/22
sucralfate 1 gram tablet 1 g PO BID Gastrointestinal Issue 01/30/23
atorvastatin 10 mg tablet 10 mg PO DAILY@2000 High Cholesterol 05/15/23
vit B complx, C-iron 8 mg-folic acid 800 mcg-D3 1,000 unit-zinc tablet (ProRenal) 1 tab PO DAILY Supplement 05/15/23
cinacalcet 60 mg tablet (Sensipar) 60 mg PO MOWEFR@0800 Kidney Disease 09/18/23
sevelamer carbonate 800 mg tablet (Renvela) 1,600 mg PO MEALS Kidney Disease 09/18/23
polyethylene glycol 3350 17 gram/dose oral powder (Miralax) 17 g PO DAILY Constipation 09/21/23
calcitriol 0.5 mcg capsule 0.5 mcg PO MOWEFR@0800 Supplement 12/22/23
hydralazine 25 mg tablet 50 mg PO BID Blood Pressure 12/22/23
clonidine HCl 0.2 mg tablet 0.2 mg PO BID Blood Pressure 01/06/24
diphenhydramine HCl 25 mg capsule (Benadryl) 25 mg PO TID PRN allergy symptoms #14 caps 01/24/24
oxycodone 5 mg tablet 2.5 mg PO BID PRN severe pain 01/24/24
oxycodone 5 mg tablet 5 mg PO MOWEFR Pain 01/24/24
pantoprazole 40 mg tablet,delayed release (Protonix) 40 mg PO DAILY Gastrointestinal Issue 01/24/24
propylene glycol 0.6 % eye drops (Systane Complete) 1 drp BOTH EYES BID Eye Condition 01/24/24
Review of Systems
-
A 12 point ROS was completed and negative except as noted: Yes
Constitutional: Denies Fever or Chills
Respiratory: Denies Cough or Trouble Breathing
Cardiac: Denies Chest Pain or Palpitations
Physical Exam
Vital Signs
Vital Signs
Temp Pulse Resp BP Pulse Ox
97.7 F 75 9 131/58 80
01/24/24 09:48 01/24/24 13:00 01/24/24 12:45 01/24/24 13:00 01/24/24 13:12
Physical Exam
General: Comfortable and Conversant (Speech is slightly thick)
HEENT: Anicteric, Moist mucous membranes and Other (Facial swelling noted in the cheeks, and eyelids)
Respiratory: Clear and Non Labored Respirations
Cardiac: S1/S2, Regular Rhythm and Other (RUE AV fistula with bruit)
GI: Soft and Non Tender
Rectal: Deferred by Provider
Musculoskeletal: No Clubbing, No Cyanosis and No Edema
Skin: Warm and Dry
Neuro: Awake, Alert and Nonfocal/grossly intact
Laboratory Results
-
01/24/24 11:41
01/24/24 11:41
Laboratory Results
Total Bilirubin 1.1 mg/dl (0.2-1.3) 01/24/24 11:41
AST 44 U/L (14-36) H 01/24/24 11:41
ALT 22 U/L (0-35) 01/24/24 11:41
Alkaline Phosphatase 107 U/L (38-126) 01/24/24 11:41
Data Reviewed
-
Lab Data: Labs Reviewed by me
Old Records: Reviewed
Impression/Plan
-
Recurrent Angioedema, possibly related to Valsartan vs Vancomycin
-Give dose of Decadron and Pepcid now
-Continue Benadryl prn
-Monitor with continuous pulse ox
Recent Staph Epidermidis Bacteremia
-Consult Infectious Disease
-Hold vancomycin for now
ESRD secondary to Polycystic Kidney Disease on HD MoWeFr
-Consult Nephrology
-Continue calcitriol, Sensipar and Renvela
Coronary Artery Disease s/p Stent
Renal Artery Stent
-Continue Aspirin
Essential Hypertension
-Continue carvedilol, clonidine, and hydralazine
Hyperlipidemia
-Continue atorvastatin
GERD
-Continue Protonix and Carafate
DVT Proph: SC Heparin
Code Status: Full Code
--- NOTE | 2024-01-24 13:56 | W.PN.UPDATE ---
Update Note
Progress Note Update
I saw and examined the patient.
The DATA SERVICES DEVELOPER's note was reviewed and I agree with the note.
This is addendum to H&P
Comment:
68 female extensive past medical history recent diagnosis of staph bacteremia, concern for right AV fistula infected hematoma and abscess, back pain, ESRD on hemodialysis, hypertension, CAD, peripheral arterial disease, anemia of chronic disease who
is presenting with facial swelling. Concern for allergic reaction to vancomycin. Patient was seen in ER and discharged. Patient stated overnight she with facial swelling and took Benadryl which resolved the symptoms. Patient came into the ER for
further management. Patient discussed case with infectious disease who recommended to come to the hospital. Currently comfortable without any complaints. Denies any dysphagia or odynophagia. Denies any numbing or tingling back of the mouth.
General: Comfortable and Conversant (Speech is slightly thick) not tachypneic.
HEENT: Anicteric, Moist mucous membranes and Other (Facial swelling noted in the cheeks, and eyelids), no swelling of tongue noted
Respiratory: Clear and Non Labored Respirations
Cardiac: S1/S2, Regular Rhythm and Other (RUE AV fistula with bruit)
GI: Soft and Non Tender
Rectal: Deferred by Provider
Musculoskeletal: No Clubbing, No Cyanosis and No Edema
Skin: Warm and Dry
Neuro: Awake, Alert and Nonfocal/grossly intact
Impression
Angioedema likely secondary to vancomycin vs ARB
ESRD on hemodialysis
Recent staph bacteremia
Renal artery stent
Polycystic kidney disease
Recent compression fracture
Plan
Ordered 1 dose of Decadron and Pepcid. Monitor closely.
Continuous pulse oximetry for 24 hours
Liquid diet only for now
DC IV and vancomycin
Plan for as needed
Infectious disease consulted for antibiotic
Due for HD nephrology consulted
Continue home meds
DVT ppx
I spent a total of 78 minutes with the patient or on the floor. More than 50% of this time involved counseling and coordination of care.
[2024-01-24] MEDS: DECADRON 10 MG IV (14:57)
[2024-01-24] MEDS: NSS (PRESERVATIVE FREE) 8 ML IV (14:58)
[2024-01-24] MEDS: PEPCID 20 MG IV (14:58)
--- NOTE | 2024-01-24 15:15 | W.CON.NEPH ---
Consultation
-
Date/Time Consultation Requested: 01/24/24 13:39
Date/Time Consultation Performed: 01/24/24 3:15PM
Requesting Provider: Krystal Holm
Performing Provider: Rosalie Poe
Reason for Consultation: ESRD on HD
Medical History
-
Chief Complaint: ESRD on HD
History of Present Illness:
Patient is a 68 y/o female past medical history of CAD and ESRD who presents with recurrent facial/tongue swelling. Patient was seen here at the ED on January 21 with facial, neck and tongue swelling. At that time it was thought to be related to
valsartan. She stopped the valsartan, but reports she continued to use the same pill box.
This morning she developed recurrent symptoms which prompted her to come to emergency department for evaluation. She is also currently receiving vancomycin post-HD for recent staph epidermidis bacteremia and is scheduled to complete course on January
. She received last dose of vancomycin on Monday evening (two days ago). She did not complete her dialysis today.
Past Medical History
Coronary Artery Disease
Essential Hypertension
Hyperlipidemia
ESRD secondary to Polycystic Kidney Disease on HD
GERD
Past Surgical History: Other (AV Fistula Renal Artery Stent Cardiac Stent Cholecystectomy)
Social History
Tobacco: Smoker
Alcohol: None
Drug: None
Family History
Family History: Not Pertinent
Allergies / Home Medications
Allergy/AdvReac Type Severity Reaction Status Date / Time
cefazolin [From Anc] Allergy Itching Verified 01/24/24 09:47
�Medication �Instructions �Recorded �Confirmed �Type
aspirin 325 mg tablet,delayed 325 mg PO DAILY Blood Clot 03/14/22 01/24/24 History
release Prevention/Tx
sodium zirconium cyclosilicate 10 10 g PO QPM high potassium 06/13/22 01/24/24 History
gram oral powder packet (Lokelma)
carvedilol 25 mg tablet 25 mg PO BID Heart 10/21/22 01/24/24 History
Disease/Condition
sucralfate 1 gram tablet 1 g PO BID Gastrointestinal Issue 01/30/23 01/24/24 History
atorvastatin 10 mg tablet 10 mg PO DAILY@2000 High 05/15/23 01/24/24 History
Cholesterol
vit B complx, C-iron 8 mg-folic 1 tab PO DAILY Supplement 05/15/23 01/24/24 History
acid 800 mcg-D3 1,000 unit-zinc
tablet (ProRenal)
cinacalcet 60 mg tablet (Sensipar) 60 mg PO MOWEFR@0800 Kidney Disease 09/18/23 01/24/24 History
sevelamer carbonate 800 mg tablet 1,600 mg PO MEALS Kidney Disease 09/18/23 01/24/24 History
(Renvela)
polyethylene glycol 3350 17 17 g PO DAILY Constipation 09/21/23 01/24/24 History
gram/dose oral powder (Miralax)
calcitriol 0.5 mcg capsule 0.5 mcg PO MOWEFR@0800 Supplement 12/22/23 01/24/24 History
hydralazine 25 mg tablet 50 mg PO BID Blood Pressure 12/22/23 01/24/24 History
clonidine HCl 0.2 mg tablet 0.2 mg PO BID Blood Pressure 01/06/24 01/24/24 History
diphenhydramine HCl 25 mg capsule 25 mg PO TID PRN allergy symptoms 01/24/24 01/24/24 Rx
(Benadryl) #14 caps
oxycodone 5 mg tablet 2.5 mg PO BID PRN severe pain 01/24/24 01/24/24 History
oxycodone 5 mg tablet 5 mg PO MOWEFR Pain 01/24/24 01/24/24 History
pantoprazole 40 mg tablet,delayed 40 mg PO DAILY Gastrointestinal 01/24/24 01/24/24 History
release (Protonix) Issue
propylene glycol 0.6 % eye drops 1 drp BOTH EYES BID Eye Condition 01/24/24 01/24/24 History
(Systane Complete)
Review of Systems
-
History Source: Patient
All other systems: Negative unless noted
EENT: Mouth Swelling
Respiratory: Trouble Breathing
Physical Exam
Vital Signs
Vital Signs
Temp Pulse Resp BP Pulse Ox
97.7 F 75 9 131/58 80
01/24/24 09:48 01/24/24 13:00 01/24/24 12:45 01/24/24 13:00 01/24/24 13:12
Lab Results
WBC 5.2 10^3/uL (4.8-10.8) 01/24/24 11:41
RBC 2.89 10^6/uL (4.20-5.40) L 01/24/24 11:41
Hgb 9.1 g/dL (12.0-16.0) L 01/24/24 11:41
Hct 29.1 % (37.0-47.0) L 01/24/24 11:41
Plt Count 181 10^3/uL (130-400) 01/24/24 11:41
Sodium 132 mmol/L (135-145) L 01/24/24 11:41
Potassium 3.9 mmol/L (3.5-5.1) 01/24/24 11:41
Chloride 89 mmol/L (98-107) L 01/24/24 11:41
Carbon Dioxide 32 mmol/L (22-30) H 01/24/24 11:41
BUN 36 mg/dl (7-17) H 01/24/24 11:41
Creatinine 5.5 mg/dL (0.6-1.0) H* 01/24/24 11:41
eGFR 7.84 01/24/24 11:41
Glucose 80 mg/dl (70-99) 01/24/24 11:41
Calcium 9.4 mg/dl (8.4-10.2) 01/24/24 11:41
Albumin 3.5 g/dl (3.5-5.0) 01/24/24 11:41
Physical Exam
General: AOx3, No Distress and Nontoxic
HEENT: PERRL, EOMI, Anicteric, Conjunctivae Clear, Ear/Nose Intact, Facial Symmetry and Other (some swelling noted around eyes)
Respiratory: Clear
Cardiac: S1/S2
Breast: Deferred by me
Abdomen: Soft, Nontender and Nondistended
Rectal: Deferred by Provider
Musculoskeletal: No Edema
Skin: No Rash, Warm and Dry
Neuro: Nonfocal/Grossly Intact
Psych: Mood/afflect pleasant
Assessment/Plan
-
Assessment:
Recurrent angioedema
Staph Epidermidis bacteremia
ESRD 2/2 to PCKD on HD MWF
CAD s/p stent
HTN
DLD
GERD
Plan:
- we will plan for HD tomorrow
- defer abx plan to ID
- of note, the patient was started on oxycodone for back pain, unlikely to be the culprit but need to consider if her reactions continue to recur despite stopping valsartan and vanc
- continue calcitriol sensipar and renvela
Data Reviewed
-
Labs: Labs Reviewed by me, Discussed with Physician and Discussed with Patient
Old Records: Reviewed
[2024-01-24 15:17] VITALS: BMI 24.1
--- NOTE | 2024-01-24 16:00 | CON.ID ---
Consultation
-
Date/Time Consultation Requested: 01/24/24 13:39
Date/Time Consultation Performed: 01/24/24 16:01
Requesting Provider: Alta
Performing Provider: Dr Klein
Reason for Consultation: angioedema, on vancomycin
Chief Complaint / Past History
Chief Complaint
eye, lip, tongue swelling
History of Present Illness
Ms Vernon is a 68 year old female with recent admission in December for sustained S epidermidis bacteremia possibly complicated by disicits, fisutal infection; she is on a 6 week course of IV vancomycin with HD thorugh 02/16. She presented to the ER
today at 5AM for eye, lip and tongue swelling and throat tightness 'I looked like a marshmallow! I could barely see my eyes were so swollen.' Vision was blurry. Had difficulty swallowing this AM, which has since improved. She was given high dose
steroids and antihistamines. I found records of her two ER visits today while reviewing her vancomycin levels, called the patient who had been discharged home and asked her to return. Of note the oxycodone was recently started due to presistent
back pain.
Since arrival here this visit she has been afebrile, bp stable, wbc 5.2, hgb 9.1, plt 181, no left shift, eos are present, K 3.9, cr 5.5 today, glucose 80, t bili 1.1, ast 44, alt 22, alk pohs 107, no current culture data. Patient did not have
vancomycin today ID is consulted for assistance with management.
Past History
Additional Past Medical History:
Coronary Artery Disease
Essential Hypertension
Hyperlipidemia
ESRD secondary to Polycystic Kidney Disease on HD
GERD
Additional Past Surgical History:
AV Fistula
Renal Artery Stent
Cardiac Stent
Cholecystectomy
Allergy History:
cefazolin [From Ancef] Allergy (Verified 01/24/24 09:47)
Itching
Medications Reviewed: Yes
Social History
Tobacco: Smoker (1/2 ppd)
Alcohol: None
Drug: None
Family History
Family History: Not Pertinent
Review of Systems
Review of Systems
General: Negative Fever or Chills
All systems: All other systems were reviewed and were negative
Vital Signs
Temp Pulse Resp BP Pulse Ox
97.7 F 75 9 131/58 80
01/24/24 09:48 01/24/24 13:00 01/24/24 12:45 01/24/24 13:00 01/24/24 13:12
Physical Exam
Physical Exam
Constitutional: No Acute Distress
Head: Other (puffy eyes and cheeks, voice a bit hoarse)
Cardiovascular: Regular Rate and S1/S2; Negative Murmur or Rub
Pulmonary: Clear and Symmetric; Negative Wheezes, Rales or Rhonchi
Gastrointestinal: Soft, Non Tender, Non Distended and Normal Bowel Sounds
Skin: Warm and Dry; Negative Rash or Jaundice
Lab / Diagnostic Study Results
01/24/24 11:41
01/24/24 11:41
Abs Immat Gran (auto) 0.0 10^3/uL (0-0.05) 01/24/24 11:41
Absolute Neuts (auto) 3.1 10^3/uL (1.4-6.5) 01/24/24 11:41
Absolute Lymphs (auto) 1.4 10^3/uL (1.2-3.4) 01/24/24 11:41
Absolute Monos (auto) 0.5 10^3/uL (0.1-0.6) 01/24/24 11:41
Absolute Basos (auto) 0.0 10^3/uL (0-0.2) 01/24/24 11:41
Immature Gran % 0.2 % (0-0.5) 01/24/24 11:41
Neutrophils % 58.8 % (42.2-75.2) 01/24/24 11:41
Lymphocytes % 26.0 % (20.5-51.1) 01/24/24 11:41
Monocytes % 8.8 % (1.7-9.3) 01/24/24 11:41
Eosinophils % 5.6 % (0-6) 01/24/24 11:41
Basophils % 0.6 % (0-2) 01/24/24 11:41
Assessment / Plan
Possible Anigoedema
Possible S epidermidis Discitis
Recent sustained S epidermidis bacteremia
RUE HD fistula
ESRD on HD
- switched to linezolid first three days at 600 mg PO BID, then will likely drop dose; functionally vancomycin is still in her system given that she has not yet had HD
- oxycodone was recently started on the differential as a cause and she has been on losartan (using the same pill box that used to house the losartan)
- duration remains through 02/16
- will need weekly CBC while on linezolid to monitor for cytopenias
- agree with judicious use of steroids
Back Pain
- note that oxycodone was recently started per patient and can be associated with angioedema
[2024-01-24 17:19] LABS: Vancomycin Random 17.6 ug/ml
[2024-01-24] MEDS: HEPARIN 5000 UNITS SC (17:43)
[2024-01-24] MEDS: ZYVOX 600 MG PO (19:04)
[2024-01-24] MEDS: RENVELA 1600 MG PO (19:04)
[2024-01-24 20:00] VITALS: BP 154/69; BMI 23.7
[2024-01-24] MEDS: APRESOLINE 50 MG PO (20:40)
[2024-01-24] MEDS: LIPITOR 10 MG PO (20:41)
[2024-01-24] MEDS: CARAFATE 1 GRAM PO (20:41)
[2024-01-24] MEDS: COREG 25 MG PO (20:41)
[2024-01-24] MEDS: CATAPRES 0.200000000000000011 MG PO (21:34)
[2024-01-24 23:30] VITALS: BP 146/75
[2024-01-25] MEDS: HEPARIN 5000 UNITS SC ×3 (00:03→15:28)
--- NOTE | 2024-01-25 03:03 | PTCARENOTE ---
Pt admitted from ED, AAOx3. Continues with back/R sided pain, no PRNs needed at this time. Pt afebrile, VSS. Lungs clear, on room a ir. No N/V or stools. Last BM 01/21. Call monk within reach. Will CTM>
[2024-01-25 03:36] VITALS: BP 142/69
[2024-01-25 06:04] LABS: Hematocrit 28.2 % (37.0-47.0); Hemoglobin 8.9 g/dL (12.0-16.0); Mean Corp Hgb Conc. 31.6 g/dL (33.0-37.0); Mean Corpuscular Volume 98.3 fL (81.0-99.0); Mean Platelet Volume 10.5 fL (7.4-10.4); Platelet Count 189 10^3/uL (130-400); Red Blood Cell Count 2.87 10^6/uL (4.20-5.40); Red Cell Dist. Width 16.7 % (11.5-14.5); White Blood Cell Count 2.6 10^3/uL (4.8-10.8)
[2024-01-25 06:36] LABS: Blood Urea Nitrogen 44 mg/dl (7-17); Calcium 9.4 mg/dl (8.4-10.2); Carbon Dioxide 32 mmol/L (22-30); Chloride 89 mmol/L (98-107); Estimated Creatinine Clearance 6 ml/min; Glucose 119 mg/dl (70-99); Potassium 4.9 mmol/L (3.5-5.1); Sodium 132 mmol/L (135-145); eGFR 5.87
[2024-01-25 06:57] LABS: Erythrocyte Sed Rate 51 mm/hour (0-20)
[2024-01-25 07:00] VITALS: BP 154/68
--- NOTE | 2024-01-25 08:47 | W.PN.NEPH.HD ---
Assessment
-
Patient seen on dialysis
Systolic blood pressure 163 current ultrafiltration rate
Angioedema improving
Antibiotics to be changed to linezolid
Diovan was discontinued earlier this week re: concern for angioedema
Wound VAC removed
Progress Note - Hemodialysis
-
Date of Service: January 25, 2024
Duration: 30 minutes and 3 hours
Potassium Bath: 2
Calcium Bath: 2.5
Opti-Dialyzer: 160
Ultrafiltration: Other (2 kg)
Blood Flow: 400
Dialysate Flow: 600
Heparin: None
EPO: 6000
[2024-01-25] MEDS: RETACRIT 6000 UNITS IV (09:39)
--- NOTE | 2024-01-25 10:26 | W.PN.HOSP.TC ---
Today's Communication/Plan
-
ID recs
HD today
advance diet
Assessment / Plan
Assessment / Plan
General: Comfortable and Conversant, speech improved not tachypneic.
HEENT: Anicteric, Moist mucous membranes and no swelling of tongue noted
Respiratory: Clear and Non Labored Respirations
Cardiac: S1/S2, Regular Rhythm and Other (RUE AV fistula with bruit)
GI: Soft and Non Tender
Rectal: Deferred by Provider
Musculoskeletal: No Clubbing, No Cyanosis and No Edema
Skin: Warm and Dry
Neuro: Awake, Alert and Nonfocal/grossly intact
Recurrent Angioedema, possibly related to Valsartan vs Vancomycin
-s/p dose of Decadron and Pepcid
-Continue Benadryl prn
-Monitor with continuous pulse ox
-If recurrent episode then stop oxycodone as also new drug
-advance diet and monitor tolerance.
Recent Staph Epidermidis Bacteremia
-Consult Infectious Disease
-Hold vancomycin for now and started on Linezolid through 02/16.
ESRD secondary to Polycystic Kidney Disease on HD MoWeFr
-Consult Nephrology-HD today
-Continue calcitriol, Sensipar and Renvela
Coronary Artery Disease s/p Stent
Renal Artery Stent
-Continue Aspirin
Essential Hypertension
-Continue carvedilol, clonidine, and hydralazine
Hyperlipidemia
-Continue atorvastatin
GERD
-Continue Protonix and Carafate
DVT Proph: SC Heparin
Code Status: Full Code
Anticipated Discharge: 24 - 48 hours
Subjective/Interval History
-
Date of Service: January 25, 2024
Denies any discomfort in tongue or in throat
speech clear
seen on HD
Objective Data
-
Labs:
Laboratory Results
01/25/24
05:49
WBC 2.6 L
Hgb 8.9 L
Hct 28.2 L
Plt Count 189
Sodium 132 L
Potassium 4.9 D
Chloride 89 L
Carbon Dioxide 32 H
BUN 44 H
Creatinine 7.0 H*
Glucose 119 H
Calcium 9.4
Vital Signs:
Vital Signs
Temp Pulse Resp BP Pulse Ox
98.3 F 65 17 154/68 100
01/25/24 07:00 01/25/24 07:00 01/25/24 07:00 01/25/24 07:00 01/25/24 07:00
I&O
01/24/24 01/25/24 01/26/24
06:59 06:59 06:59
Intake Total 0 / 0
Output Total 0 / 0
Balance 0 / 0
[2024-01-25 10:55] VITALS: BP 156/61
[2024-01-25] MEDS: TYLENOL 650 MG PO (11:17)
[2024-01-25] MEDS: NEPHROCAP 1 CAPSULE PO (11:18)
[2024-01-25] MEDS: CARAFATE 1 GRAM PO (11:18)
[2024-01-25] MEDS: MIRALAX 17 GRAMS PO (11:18)
[2024-01-25] MEDS: ASPIRIN ENTERIC COATED 325 MG PO (11:18)
[2024-01-25] MEDS: APRESOLINE 50 MG PO (11:18)
[2024-01-25] MEDS: PROTONIX 40 MG PO (11:18)
[2024-01-25] MEDS: CATAPRES 0.200000000000000011 MG PO (11:19)
[2024-01-25] MEDS: COREG 25 MG PO (11:19)
[2024-01-25] MEDS: RENVELA 1600 MG PO ×2 (11:20→16:33)
[2024-01-25] MEDS: ZYVOX 600 MG PO (11:20)
[2024-01-25] MEDS: RENVELA PO (12:06)
[2024-01-25 12:56] VITALS: BMI 23.7
--- NOTE | 2024-01-25 15:29 | CM ---
Met with pt at bedside
Lives in 1 story home with her sister
Independent, drives, household management
Receives HD at [place]
Denies DME
Denies past SNF
+ HH - DH VN in past
Has ride at d/c
PCP - Dr Genesis Jean Baptiste
Pharm - [facility]
Plan - anticipate home no needs
[2024-01-25 15:34] VITALS: BP 134/56
[2024-01-25] MEDS: TUMS 1 TABLET PO (15:56)
[2024-01-25] MEDS: ROXICODONE 2.5 MG PO ×2 (16:04→22:38)
--- NOTE | 2024-01-25 17:19 | W.PN.ID1 ---
Date of Service
Date of Service: January 25, 2024
Today's Communication
- follow CBC - leukopenia may be an issue
Assessment / Plan
Possible Anigoedema
Possible S epidermidis Discitis
Recent sustained S epidermidis bacteremia
RUE HD fistula
ESRD on HD
- follow CBC - leukopenia may be an issue
- continue linezolid at current dose for today, then will likely drop dose;
- duration remains through 02/16
- agree with judicious use of steroids
Back Pain
- note that oxycodone was recently started per patient and can be associated with angioedema
Chief Complaint
-: Other (discitis; drug reaction)
Subjective / Review of Systems
afebrile
bp stable
new leukopenia is noted today
K normal
Vital Signs / Physical Exam
Vital Signs
Vital Signs
Temp Pulse Resp BP Pulse Ox
98.4 F 55 17 134/56 100
01/25/24 15:34 01/25/24 15:34 01/25/24 15:34 01/25/24 15:34 01/25/24 15:34
Physical Exam
Constitutional: No Acute Distress
Head: Other (facial swelling resolved)
Cardiovascular: Regular Rate and S1/S2; Negative Murmur or Rub
Pulmonary: Clear and Symmetric; Negative Wheezes or Rales
Gastrointestinal: Soft, Non Tender, Non Distended and Normal Bowel Sounds
Skin: Warm and Dry; Negative Rash or Jaundice
Objective Data
Lab Data
Lab Results
01/25/24 05:49
01/25/24 05:49
ESR 51 mm/hour (0-20) H 01/25/24 05:49
Estimated Creat Clear 6 ml/min 01/25/24 05:49
Total Bilirubin 1.1 mg/dl (0.2-1.3) 01/24/24 11:41
AST 44 U/L (14-36) H 01/24/24 11:41
ALT 22 U/L (0-35) 01/24/24 11:41
Alkaline Phosphatase 107 U/L (38-126) 01/24/24 11:41
C-Reactive Protein 5.50 mg/L (0.0-10.00) 01/25/24 05:49
Most recent labs reviewed.
[2024-01-25 19:20] VITALS: BP 151/82
[2024-01-25 21:15] LABS: Glucose - Point of Care 109 mg/dl (70-99)
[2024-01-25] MEDS: MAALOX 30 ML PO (22:37)
[2024-01-25 23:34] VITALS: BP 161/73
[2024-01-26] MEDS: COREG 25 MG PO (00:18)
[2024-01-26] MEDS: APRESOLINE 50 MG PO ×2 (00:18→11:58)
[2024-01-26] MEDS: LIPITOR 10 MG PO (00:19)
[2024-01-26] MEDS: ZYVOX 600 MG PO ×2 (00:19→11:56)
[2024-01-26] MEDS: CATAPRES 0.200000000000000011 MG PO ×2 (00:20→11:58)
[2024-01-26] MEDS: HEPARIN 5000 UNITS SC ×2 (00:20→11:55)
[2024-01-26] MEDS: CARAFATE 1 GRAM PO ×2 (00:20→11:55)
[2024-01-26 03:39] VITALS: BP 146/59
[2024-01-26 05:36] VITALS: BMI 23.0
--- NOTE | 2024-01-26 07:23 | PTCARENOTE ---
@0025 ;While assessing pt's lower back skin,found 2 large white patches on bilateral lower back.No patches were ordered for pt and no patches were on pt's mediation summary.Pt was asked by this RN, how the patches were placed on lower back.Pt
stated,' My sister put them on Monday morning before my HD to help with my back.They are Lidoderm patches.' This RN ask if the patches were a prescription? Pt stated,' No,I get them from [facility], because they are cheaper.They are Icey Hot with
Lidoderm.They help me.' Pt was in agreement to remove the 2 patches now and talk to the doctor in the AM about the patches.
[2024-01-26 07:30] VITALS: BP 135/67
[2024-01-26] MEDS: ROXICODONE 2.5 MG PO (07:45)
[2024-01-26] MEDS: PROTONIX 40 MG PO (07:47)
[2024-01-26 08:31] LABS: Hematocrit 26.5 % (37.0-47.0); Hemoglobin 8.6 g/dL (12.0-16.0); Mean Corp Hgb Conc. 32.5 g/dL (33.0-37.0); Mean Corpuscular Hgb 31.6 pg (27.0-31.0); Mean Corpuscular Volume 97.4 fL (81.0-99.0); Mean Platelet Volume 10.5 fL (7.4-10.4); Platelet Count 184 10^3/uL (130-400); Red Blood Cell Count 2.72 10^6/uL (4.20-5.40); Red Cell Dist. Width 17.1 % (11.5-14.5)
[2024-01-26 08:44] LABS: Carbon Dioxide 32 mmol/L (22-30); Chloride 89 mmol/L (98-107); Sodium 130 mmol/L (135-145)
[2024-01-26] MEDS: RETACRIT 6000 UNITS IV (08:46)
[2024-01-26 09:09] LABS: Potassium 3.3 mmol/L (3.5-5.1)
--- NOTE | 2024-01-26 10:07 | W.PN.NEPH.HD ---
Assessment
-
pt seen during HD
vitals stable
no facial swelling currently
d/c plan
will cont to hold ARB too at d/c
[facility] functions well
Progress Note - Hemodialysis
-
Date of Service: January 26, 2024
Duration: 30 minutes and 3 hours
Potassium Bath: 3
Calcium Bath: 2.5
Opti-Dialyzer: 160
Ultrafiltration: Other (1.5-2kg)
Blood Flow: 400
Dialysate Flow: 600
Heparin: no
EPO: 6000
--- NOTE | 2024-01-26 11:03 | W.PN.HOSP.TC ---
Addendum entered and electronically signed by Vijay Thompson MD 01/26/24 15:42:
Na 130 insignificant lab value as pt on HD.
Addendum entered and electronically signed by Vijay Thompson MD 01/26/24 14:22:
Pt requesting VN for as receiving wound care of RUE AVF wound-states she is due to receive to wound vac either today or tomm by VN.
Addendum entered and electronically signed by Vijay Thompson MD 01/26/24 14:15:
Seen post HD. Walking with walker. Feeling a better. wants to go home.
Understnads to cut linezolid tab in half.
D/W with sister at bedside in details who agreed with dc planning
HR stable in 90 on tele.
d/w with ID.
More than 30 minutes spent in discharge including
Final examination of the patient
Summarizing hospital stay
Instructions for continuing care to all relevant caregivers
Preparation of discharge records, prescriptions, and referral forms
Total time spent (in minutes): 45
Original Note:
Today's Communication/Plan
-
Monitor CBC
HD today
ID rec
Rehab eval
Assessment / Plan
Assessment / Plan
General: Comfortable and Conversant, speech improved not tachypneic.
HEENT: Anicteric, Moist mucous membranes and no swelling of tongue noted, facial swelling completely resolved
Respiratory: Clear and Non Labored Respirations
Cardiac: S1/S2, Regular Rhythm and Other (RUE AV fistula with bruit)
GI: Soft and Non Tender
Rectal: Deferred by Provider
Musculoskeletal: No Clubbing, No Cyanosis and No Edema
Skin: Warm and Dry
Neuro: Awake, Alert and Nonfocal/grossly intact
Recurrent Angioedema, possibly related to Valsartan vs Vancomycin
-s/p dose of Decadron and Pepcid
-Continue Benadryl prn
-Monitor with continuous pulse ox
-If recurrent episode then stop oxycodone as also new drug
-advance diet and monitor tolerance.
Recent Staph Epidermidis Bacteremia
-Consult Infectious Disease
-Hold vancomycin for now and started on Linezolid through 02/16. WBC stable at 5 compare to 2.6 yesterday.
ESRD secondary to Polycystic Kidney Disease on HD MoWeFr
Hyperkalemia on chronic lokelma
Hypokalemia today
-Consult Nephrology-HD today
-Continue calcitriol, Sensipar and Renvela
Coronary Artery Disease s/p Stent
Renal Artery Stent
-Continue Aspirin
Essential Hypertension
-Continue carvedilol, clonidine, and hydralazine
Hyperlipidemia
-Continue atorvastatin
GERD
-Continue Protonix and Carafate
DVT Proph: SC Heparin
Code Status: Full Code
PT/OT
Dispo-ID recs for abx. HD today. PT/OT later today
Anticipated Discharge: Within 24 hours
Subjective/Interval History
-
Date of Service: January 26, 2024
Feeling alot better today
seen on hd
Objective Data
-
Labs:
Laboratory Results
01/26/24
07:51
WBC 5.0
Hgb 8.6 L
Hct 26.5 L
Plt Count 184
Sodium 130 L
Potassium 3.3 L D
Chloride 89 L
Carbon Dioxide 32 H
Vital Signs:
Vital Signs
Temp Pulse Resp BP Pulse Ox
97.7 F 55 18 135/67 99
01/26/24 07:30 01/26/24 07:30 01/26/24 07:30 01/26/24 07:30 01/26/24 07:30
I&O
01/25/24 01/26/24 01/27/24
06:59 06:59 06:59
Intake Total 0 / 0 810 / 810
Output Total 0 / 0 0 / 0
Balance 0 / 0 810 / 810
[2024-01-26] MEDS: HEPARIN 4200 UNITS INTRACATH (11:20)
[2024-01-26] MEDS: SENSIPAR 60 MG PO (11:53)
[2024-01-26] MEDS: NEPHROCAP 1 CAPSULE PO (11:53)
[2024-01-26] MEDS: ROCALTROL 0.5 MCG PO (11:54)
[2024-01-26] MEDS: ASPIRIN ENTERIC COATED 325 MG PO (11:55)
[2024-01-26] MEDS: COREG PO (11:57)
[2024-01-26] MEDS: MIRALAX 17 GRAMS PO (11:57)
[2024-01-26] MEDS: RENVELA PO (11:59)
[2024-01-26 12:00] VITALS: BP 127/44
[2024-01-26] MEDS: RENVELA 1600 MG PO (12:00)
--- NOTE | 2024-01-26 12:06 | W.PN.ID1 ---
Date of Service
Date of Service: January 26, 2024
Today's Communication
- follow CBC weekly - will be done at HD - copy to be sent to my office
- continue linezolid redosed at 300 mg PO BID which will be the final dose; she has a pill cutter at home and is comfortable with splitting the pills
- duration remains through 02/16
- follow up PRN
Assessment / Plan
Possible Anigoedema
Possible S epidermidis Discitis
Recent sustained S epidermidis bacteremia
RUE HD fistula
ESRD on HD
- follow CBC weekly - will be done at HD - copy to be sent to my office
- continue linezolid redosed at 300 mg PO BID which will be the final dose; she has a pill cutter at home and is comfortable with splitting the pills
- duration remains through 02/16
- follow up PRN
Chief Complaint
-: Other (discitis; drug reaction)
Subjective / Review of Systems
afebrile
bp stable
leukopenia resolved
k normal
no facial swelling
says she has a pill cutter at home
Vital Signs / Physical Exam
Vital Signs
Vital Signs
Temp Pulse Resp BP Pulse Ox
97.7 F 55 18 135/67 99
01/26/24 07:30 01/26/24 07:30 01/26/24 07:30 01/26/24 07:30 01/26/24 07:30
Physical Exam
Constitutional: No Acute Distress
Head: Other (no facial swelling)
Cardiovascular: Regular Rate and S1/S2; Negative Murmur or Rub
Pulmonary: Clear and Symmetric; Negative Wheezes or Rales
Gastrointestinal: Soft, Non Tender, Non Distended and Normal Bowel Sounds
Skin: Warm and Dry; Negative Rash or Jaundice
Objective Data
Lab Data
Lab Results
01/26/24 07:51
01/26/24 07:51
ESR 51 mm/hour (0-20) H 01/25/24 05:49
Estimated Creat Clear 6 ml/min 01/25/24 05:49
Total Bilirubin 1.1 mg/dl (0.2-1.3) 01/24/24 11:41
AST 44 U/L (14-36) H 01/24/24 11:41
ALT 22 U/L (0-35) 01/24/24 11:41
Alkaline Phosphatase 107 U/L (38-126) 01/24/24 11:41
C-Reactive Protein 5.50 mg/L (0.0-10.00) 01/25/24 05:49
Most recent labs reviewed.
Care Review
Plan reviewed with: Physician (Dr Thompson - alexandr)
[2024-01-26] MEDS: ROXICODONE 5 MG PO (12:20)
[2024-01-26 13:05] VITALS: BP 120/58; PULSE 79; O2SAT 100
--- NOTE | 2024-01-26 14:17 | W.DCSUMMARY ---
Discharge Summary
Discharge Data
Date of Admission: 01/24/24
Date of Discharge: 01/26/24
-
Pending Results: No
Hospital Course
68 year-old female past medical history of ESRD on hemodialysis recent bacteremia, hyperlipidemia, hypophosphatemia, recent compression lumbar fracture, is presented from home with facial swelling. Initially thought that patient angioedema
suspected was secondary to ARB. Patient talked infectious doctor over the phone and was recommended come to the hospital. He was suspected patient possibly allergic to vancomycin which was recently started for bacteremia. Vancomycin was
discontinued. Infectious disease was consulted. Linezolid was started. Patient tolerated linezolid. Upon discharge dose was decreased to 300 mg twice daily. Patient underwent regular scheduled hemodialysis. Patient facial swelling resolved.
Patient was tolerating diet. Patient be discharged home with VN.
Discharge Plan
-
Patient Disposition: Home (Routine Discharge)
Discharge Diagnosis/Procedures: Suspected Angioedema likely 2/2 ARB vs. vancomycin.
Condition: Fair
Diet: 2 Gram Sodium and Restrict fluids to 48 oz
Blood Work: cbc every 7 days while on linezolid via primary doctor.
Activity Restrictions/Additional Instructions:
cbc every 7 days while on linezolid via primary doctor. and fax results to Dr. Klein [phone]
Referrals:
Genesis Jean Baptiste PA-C [Family Provider] - in less than 1 week
Shante Klein MD [Active] - None
Prescriptions:
New
linezolid 600 mg Tablet
300 mg PO BID 22 Days Qty: 22 0RF
Continued
aspirin 325 MG tablet,delayed release (/EC)
325 mg PO DAILY
Lokelma 10 gram Powder In Packet
10 g PO QPM
carvedilol 25 mg Tablet
25 mg PO BID
sucralfate 1 gram tablet
1 g PO BID
atorvastatin 10 mg tablet
10 mg PO DAILY@1999
ProRenal 8 mg iron-800 mcg-1,000 unit tablet
1 tab PO DAILY
cinacalcet [Sensipar] 60 mg Tablet
60 mg PO MOWEFR@0800
sevelamer carbonate [Renvela] 800 mg Tablet
1,600 mg PO MEALS
polyethylene glycol 3350 [Miralax] 17 gram/dose Powder
17 g PO DAILY
hydralazine 25 mg Tablet
50 mg PO BID
Patient Comments:
01/24/2024, per pt., dose was recently changed on Monday (01/22/2024) to 50 mg BID.
calcitriol 0.5 mcg Capsule
0.5 mcg PO MOWEFR@0800
clonidine HCl 0.2 mg Tablet
0.2 mg PO BID
diphenhydramine HCl [Benadryl] 25 mg capsule
25 mg PO TID PRN (Reason: allergy symptoms) Qty: 14 0RF
oxycodone 5 mg Tablet
5 mg PO MOWEFR
Patient Comments:
01/24/2024, before dialysis.
oxycodone 5 mg Tablet
2.5 mg PO BID PRN (Reason: severe pain)
Systane Complete 0.6 % Drops
1 drp BOTH EYES BID
pantoprazole [Protonix] 40 mg tablet,delayed release (DR/EC)
40 mg PO DAILY
Discharge Orders:
Discharge Patient (As Directed); Ordered 01/26/24
Ordered By: Vijay Thompson
Discharge Date and Time
Print Language: SYRIAC
--- NOTE | 2024-01-26 14:41 | CM ---
assistant manager pt following for d/c planning
PT/OT recommending home health
Pt known to [facility]N - referral placed in [facility]
Has ride home with sister
Discussed IMM
Plan - home with VN
--- NOTE | 2024-01-26 15:08 | PN.CDI ---
CDI
- -
CDI:
Physician Documentation Request
Admit Date: 01/24/24 13:59
Dear Doctor Donna,
Please review the following and provide your response in the progress notes.
Clinical Indicators:
Pt admitted with Angioedema 2/2 Valsartan vs Vancomycin/Pt has HX of ESRD on HD
Sodium levels are as below
Laboratory Tests
01/24/24 01/25/24 01/26/24
11:41 05:49 07:51
Sodium 132 L 132 L 130 L
Based on the above, could you clarify in the progress notes, the appropriate diagnosis, if significant, that supports the above abnormalities and additional evaluation, monitoring and/or treatment rendered:
Hyponatremia
Abnormal lab value only
Other
Use of terms such as suspected, likely, concern for, or probable (associated with a specific diagnosis that is being evaluated, monitored, or treated as if it exists) are acceptable and can be coded in the inpatient setting, when documented at the
time of discharge.
Thank you,
Christen Peter RN
CDI Specialist
[facility]
Please use your independent medical judgment in providing your response.
== END 2024-01-26 15:45 | disposition home health service (06) | DRG 915 ==
LOC: 3 WEST ACU 13:59
PROVIDERS: Internal Medicine; Physician Assistant; Physician Assistant Medical; Specialist; ADMITTING PHYSICIAN Hospitalist; CONSULT PHYSICIAN Student in an Organized Health Care Education/Training Program; EMERGENCY PHYSICIAN Student in an Organized Health Care Education/Training Program; FAMILY PHYSICIAN Physician Assistant Medical; OTHER PHYSICIAN Student in an Organized Health Care Education/Training Program
PROC: 5A1D70Z Performance of Urinary Filtration, Intermittent, Less than 6 Hours Per Day (ICD-10-PCS; 2024-01-25)
DX: T78.3XXA Angioneurotic edema, initial encounter (principal); N18.6 End stage renal disease; I12.0 Hypertensive chronic kidney disease with stage 5 chronic kidney disease or end stage renal disease; R78.81 Bacteremia; Q61.3 Polycystic kidney, unspecified; M48.56XA Collapsed vertebra, not elsewhere classified, lumbar region, initial encounter for fracture; Z99.2 Dependence on renal dialysis; B95.7 Other staphylococcus as the cause of diseases classified elsewhere; F17.210 Nicotine dependence, cigarettes, uncomplicated; Z95.5 Presence of coronary angioplasty implant and graft; I25.10 Atherosclerotic heart disease of native coronary artery without angina pectoris; E78.00 Pure hypercholesterolemia, unspecified; K21.9 Gastro-esophageal reflux disease without esophagitis; M54.9 Dorsalgia, unspecified; E87.6 Hypokalemia; Z88.1 Allergy status to other antibiotic agents; E83.39 Other disorders of phosphorus metabolism; Z79.82 Long term (current) use of aspirin
CPT/HCPCS: 80048; 80051; 80053; 80202; 82962; 85025; 85027; 85652; 86140; 86160; 96374; 97116; 97163; 97166; 99283; 99284; 99406; G0257; P9047; Q5106

== ENCOUNTER → 2024-02-13 08:15 | Outpatient (REF) | payer MEDICARE, BC, SELFPAY | LOC: RAD 08:15 | PROVIDERS: ATTENDING PHYSICIAN Registered Nurse; FAMILY PHYSICIAN Physician Assistant Medical | DX: I77.0 Arteriovenous fistula, acquired (principal) | CPT/HCPCS: 93990 ==